=== PATIENT | female | born 1950 | race Caucasian/White ===

== ENCOUNTER 2019-11-16 19:18 | Emergency (ER) | payer MEDICARE, OTHER ==
[~2019-11-16] VITALS: Ht 154.9 cm; Wt 81.2 kg
[~2019-11-16 19:18] MED LIST: ACETAMINOP160 MG/52 PO; ACETAMINOPHEN-1 EAC1 PO; ALBUTEROL2.5 MG/3 M INH; ALENDRONATE SOD70 MG PO; ATORVASTATIN CA40 MG PO; ATORVASTATIN CA80 MG PO; BETAMETHASONE D60 ML TOP; CARAFATE1 GM PO; CLONIDINE HCL0.1 MG PO; COMBIVENT RESPIM4 GM INH; DALIRESP500 MCG PO; FLOVENT HFA12 G1 INH; LEVOFLOXACIN500 MG PO; METFORMIN HCL1000 MG PO; METFORMIN HCL500 M1 PO; MONTELUKAST SOD10 MG PO; NORTRIPTYLINE H75 MG PO; OXYCODONE HCL5 MG PO; PREDNISONE5 MG PO; PROTONIX40 MG PO; TERBINAFINE HC250 MG PO; TRAZODONE HCL150 MG PO
[2019-11-16] MEDS ORDERED: TRIAMCINOLONE A15 G4 TOP (19:37)
[2019-11-17] MEDS ORDERED: LEVAQUIN750 MG PO (01:01)
--- NOTE | 2019-11-17 12:07 | EKG ---
[facility] [address] 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
== END 2019-11-17 01:23 | disposition home or self-care (01) ==
LOC: ED 19:18
DX: J20.9 Acute bronchitis, unspecified (principal); J45.909 Unspecified asthma, uncomplicated; I10 Essential (primary) hypertension; E11.9 Type 2 diabetes mellitus without complications; Z88.2 Allergy status to sulfonamides; Z88.0 Allergy status to penicillin; Z88.8 Allergy status to other drugs, medicaments and biological substances; Z88.1 Allergy status to other antibiotic agents; Z88.6 Allergy status to analgesic agent; Z79.899 Other long term (current) drug therapy; Z79.84 Long term (current) use of oral hypoglycemic drugs
CPT/HCPCS: 71046; 71260; 80053; 83880; 85025; 85379; 93005; 93010; 99285-25

== ENCOUNTER 2020-01-25 20:38 | Emergency (ER) | payer MEDICARE, OTHER ==
[~2020-01-25] VITALS: Ht 154.9 cm; Wt 81.2 kg
[~2020-01-25 20:38] MED LIST changes: +LEVAQUIN750 MG PO; +TRIAMCINOLONE A15 G4 TOP
[2020-01-25] MEDS ORDERED: LEVOFLOXACIN750 MG PO (21:38)
--- NOTE | 2020-01-26 12:47 | EKG ---
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
== END 2020-01-25 21:52 | disposition home or self-care (01) ==
LOC: ED 20:38
DX: J44.1 Chronic obstructive pulmonary disease with (acute) exacerbation (principal); I10 Essential (primary) hypertension; E11.9 Type 2 diabetes mellitus without complications; Z88.2 Allergy status to sulfonamides; Z88.0 Allergy status to penicillin; Z88.1 Allergy status to other antibiotic agents; Z88.8 Allergy status to other drugs, medicaments and biological substances; Z79.899 Other long term (current) drug therapy; Z79.84 Long term (current) use of oral hypoglycemic drugs
CPT/HCPCS: 71045; 80053; 83735; 83880; 84484; 85025; 93005; 93010; 96374; 99285-25; J2930

== ENCOUNTER 2020-01-31 09:52 | Day surgery (SDC) | payer MEDICARE, OTHER ==
[~2020-01-31 09:52] MED LIST changes: +LEVOFLOXACIN750 MG PO
--- NOTE | 2020-01-31 12:10 | NUR ---
[address] rai in to do procedure. pt tolerated well. instructed pt and was given script for prednisone and instructed. dressed and taken to car with friend as commercial driver. bandaid clean and dry l neck.
--- NOTE | 2020-02-03 11:30 | OR ---
[facility] [address] [place], [place] [address] Signed DATE OF OPERATION: 01/31/2020 SURGEON: Harris Hamilton MD PREOPERATIVE DIAGNOSIS: Left thyroid nodule x2 (36 mm and 19 mm). POSTOPERATIVE DIAGNOSIS: Left thyroid nodule x2 (36 mm and 19 mm). PROCEDURE: Ultrasound-guided fine-needle aspiration biopsy of nodule #1 and #2. ANESTHESIA: Local, 1% lidocaine. INDICATIONS: This is a 69-year-old white woman, patient of Dr. Doyle, has underlying reactive airways disease. She is also noted on ultrasound to have two nodules of the left thyroid lobe, one of them 19 mm, other was 36 mm. She has no specific symptoms related to the nodules. She has no family history of thyroid cancer. She is admitted to undergo ultrasound-guided fine-needle aspiration biopsy of both the nodules. She understands the risks of bleeding, infection, failure of diagnosis, missed diagnosis, and need for other indicated procedure should malignancy be found or suspected. She understands this and wished to proceed. FINDINGS: The nodules were very well visualized on ultrasound. They appeared to be "stacked" in an ultrasonographic fashion. The nodules were separately biopsied under ultrasound guidance without problem. DESCRIPTION OF PROCEDURE: The patient was placed in the supine position with the pillow beneath the shoulders, arm, and head tilted back. The anterior neck was prepared with a chlorhexidine solution after initial interrogation with SonoSite ultrasound device. The area was sterilely draped. A 1% lidocaine was injected in the area of proposed trajectory to the left thyroid nodules. Using controlled tip syringe and a 22-gauge needle with ultrasound sonographic guidance, the largest nodule of 36 mm, which was deep, was multiply biopsied under direct Electronically Signed By: HARRIS HAMILTON MD 02/03/20 1130 PATIENT NAME: KEITH ANGLIN OPERATIVE REPORT DATE OF : 48 REPORT #: [id number] PHYSICIAN: HARRIS HAMILTON MD PCP: LIAN DOYLE MD REPORT IS CONFIDENTIAL AND NOT TO BE RELEASED WITHOUT AUTHORIZATION [facility] [address] [facility], [place] [address] Signed visualization, specimen put in CytoLyt. Additional biopsies were then taken through the more superficial 19 mm nodule under direct visualization. Photographs were taken. She tolerated the procedure well. Bandage was applied. Harris Hamilton MD JM/MODL /[id number] Copies: ~ Electronically Signed By: HARRIS HAMILTON MD 02/03/20 1130 PATIENT NAME: KEITH ANGLIN OPERATIVE REPORT DATE OF : 48 REPORT #: [id number] PHYSICIAN: HARRIS HAMILTON MD PCP: LIAN DOYLE MD REPORT IS CONFIDENTIAL AND NOT TO BE RELEASED WITHOUT AUTHORIZATION
== END 2020-01-31 18:00 | disposition home or self-care (01) ==
LOC: OPS 09:52 → DS 09:52 → OPS 11:00 → EDSTATUS 11:00 → DS 11:00 → OPS 18:00
PROVIDERS: ATTEND Surgery
PROC: 0G9G3ZX Drainage of Left Thyroid Gland Lobe, Percutaneous Approach, Diagnostic (ICD-10-PCS; principal; 2020-01-31)
PROC: BW4FZZZ Ultrasonography of Neck (ICD-10-PCS; 2020-01-31)
DX: E04.1 Nontoxic single thyroid nodule (principal)
CPT/HCPCS: 10004; 88173; 88305

== ENCOUNTER 2020-11-30 14:20 | Emergency (ER) | payer MEDICARE, OTHER ==
[~2020-11-30] VITALS: Ht 154.9 cm; Wt 83.5 kg
[2020-11-30] MEDS ORDERED: CYMBALTA30 MG PO (17:28)
[2020-11-30] MEDS ORDERED: VALIUM5 MG PO (23:23)
[2020-11-30] MEDS ORDERED: MAPAP500 MG PO (23:23)
[2020-11-30] MEDS ORDERED: LIDODERM1 EACH TOP (23:23)
--- NOTE | 2020-12-01 07:17 | EKG ---
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
== END 2020-12-01 00:20 | disposition home or self-care (01) ==
LOC: ED 14:20
DX: M62.830 Muscle spasm of back (principal); E86.0 Dehydration; Z20.822 Contact with and (suspected) exposure to COVID-19; E83.42 Hypomagnesemia; J44.9 Chronic obstructive pulmonary disease, unspecified; I10 Essential (primary) hypertension; E11.9 Type 2 diabetes mellitus without complications; Z88.2 Allergy status to sulfonamides; Z88.1 Allergy status to other antibiotic agents; Z88.6 Allergy status to analgesic agent; Z79.899 Other long term (current) drug therapy; Z79.84 Long term (current) use of oral hypoglycemic drugs
CPT/HCPCS: 72040; 80053; 81001; 83735; 84443; 85025; 87088; 93005; 93010; 96374; 96375; 96376; 99284-25; A9270; C9803; J1885; J2060; J3010; J3360; J7121; U0003

== ENCOUNTER 2021-06-04 11:59 | Emergency (ER) | payer MEDICARE, OTHER ==
[~2021-06-04] VITALS: Ht 154.9 cm; Wt 80.4 kg
[~2021-06-04 11:59] MED LIST changes: +CYMBALTA30 MG PO; +LIDODERM1 EACH TOP; +MAPAP500 MG PO; +VALIUM5 MG PO
== END 2021-06-04 15:25 | disposition home or self-care (01) ==
LOC: ED 11:59
DX: S39.012A Strain of muscle, fascia and tendon of lower back, initial encounter (principal); S33.5XXA Sprain of ligaments of lumbar spine, initial encounter; I10 Essential (primary) hypertension; J45.909 Unspecified asthma, uncomplicated; M19.90 Unspecified osteoarthritis, unspecified site; E11.9 Type 2 diabetes mellitus without complications; J44.9 Chronic obstructive pulmonary disease, unspecified; Z88.2 Allergy status to sulfonamides; Z88.0 Allergy status to penicillin; Z88.1 Allergy status to other antibiotic agents; Z88.8 Allergy status to other drugs, medicaments and biological substances; Z79.899 Other long term (current) drug therapy; Z79.51 Long term (current) use of inhaled steroids; Z79.84 Long term (current) use of oral hypoglycemic drugs; W18.30XA Fall on same level, unspecified, initial encounter; Y92.009 Unspecified place in unspecified non-institutional (private) residence as the place of occurrence of the external cause
CPT/HCPCS: 72100; 72170; 99283-25

== ENCOUNTER 2021-08-24 13:36 | Inpatient (IN) | payer MEDICARE, OTHER ==
[~2021-08-24] VITALS: Ht 154.9 cm; Wt 73.5 kg
[~2021-08-24 13:36] MED LIST changes: -FLOVENT HFA12 G1 INH; +FLOVENT HFA12 G1 NAS; +METFORMIN HCL1000 M1 PO; -METFORMIN HCL1000 MG PO
[2021-08-24] MEDS ORDERED: NORTRIPTYLINE H10 MG (13:47)
--- NOTE | 2021-08-24 19:20 | NUR ---
08/24/211919 Aaron Del Toro RESPONDS TO TAP AND VOICE AT 1915, REORIENTED TO TIME AND SITUATION.
--- NOTE | 2021-08-24 20:20 | NUR ---
PATIENT ARRIVED TO THE FLOOR VIA STRETCHER. PATIENT ASSISTED FROM STRETCHER TO BSC. PATIENT ABLE TO VOID A SMALL AMOUNT. PATIENT HAS NOTED BLOOD IN HER URINE. PATIENT IS NOW IN BED RESTING. PATIENT IS ON 2L VIA NC. PATIENT DENIES ANY PAIN. CPOX IN USE. SCDS IN USE. PATIENT DENIES ANY SOB. SENIOR CLERK PRESENT IN ROOM TO COMPLETED ADMISSION. ICE WATER PROVIDED. CALL LIGHT IN REACH.
--- NOTE | 2021-08-24 21:21 | NUR ---
POST OP VITALS COMPLETED. PATIENT RATES PAIN AT A 3/10 IN HER LOW ABD, PRN TYLENOL GIVEN PER ORDER. SCHEDULED MEDICATIONS GIVEN PER ORDER. IV INFUSING PER ORDER. PATIENT TITRATED TO 1L VIA NC. CPOX AND SCDS IN USE. RT PRESENT IN THE ROOM TO ADMIN NEB RX. JELL PROVIDED. NO FURTHER NEEDS NOTED. CALL LIGHT IN REACH.
--- NOTE | 2021-08-24 22:04 | NUR ---
POST-OP VITALS TAKEN AND RECORDED. NO NEEDS NOTED. CALL LIGHT IN REACH.
--- NOTE | 2021-08-24 22:54 | NUR ---
PATIENT ASSISTED TO THE BSC A SBA. PATIENT ABLE TO VOID. PATIENT IS BACK IN BED RESTING. IV INFUSING PER ORDER. PATIENT REMAINS ON 1L VIA NC. CPOX AND SCDS IN USE. PATIENT DENIES ANY NEEDS. CALL LIGHT IN REACH.
--- NOTE | 2021-08-25 00:58 | NUR ---
PATIENT ASSISTED TO THE BSC AND ABLE TO VOID. PATIENT IS BACK IN BED RESTING. PATIENT REPORTS SOB, PRN NEB GIVEN PER ORDER. PATIENT REMAISN ON 1L VIA NC. PATIENT DENIES ANY FURTHER NEEDS. CALL LIGHT IN REACH.
--- NOTE | 2021-08-25 01:17 | NUR ---
NEB COMPLETED. PATIENT REPORTS 8/10 PAIN IN HER LOW ABD. PRN PAIN MEDICATION GIVEN PER ORDER. NO FURTHER NEEDS NOTED. CALL LIGHT IN REACH.
--- NOTE | 2021-08-25 02:23 | NUR ---
VITALS TAKEN AND RECORDED. INTAKE AND OUTPUT RECORDED. PATIENT TATES PAIN AT A 3/10, AND DENIES THE NEED FOR INTERVENTION AT THIS TIME. 1L VIA NC. CPOX AND SCDS ARE IN USE. PATIENT DENIES ANY SOB. ICE SHIPS PROVIDED. NO FURTHER NEEDS NOTED. CALL LIGHT IN REACH.
--- NOTE | 2021-08-25 05:05 | NUR ---
PATIENT ASSISTED TO THE BSC A 1PA. PATIENT WAS ABLE TO VOID. PATIENT IS BACK IN BED RESTING. PATIENT REQUESTED NEB TX, PRN NEB TX ADMIN PER ORDER. PATIENT RATES PAIN AT A 7/10, PRN TYLENOL GIVEN PER ORDER. IV INFUSING PER ORDER. PATIENT TITRATED TO RA. SCD IN USE. PATIENT PROVIDE WITH FRESH ICE WATER AND ICE CHIPS. NO FURTHER NEEDS NOTED. CALL LIGHT IN REACH.
--- NOTE | 2021-08-25 06:46 | NUR ---
PATIENTS AM MEDICATIONS GIVEN PER ORDER. PATIENT IS RESTING IN BED WATCHING TV. PATIENT DENIES ANY NEEDS. CALL LIGHT IN REACH.
--- NOTE | 2021-08-25 07:15 | NUR ---
BEDSIDE HANDOFF REPORT RECEIVED FROM INFRASTRUCTURE DIRECTOR RN. PT RESTING IN BED. PT DENIES NEEDS AT THIS TIME.
--- NOTE | 2021-08-25 08:40 | OR ---
[facility] [address] [facility] [place], [place] [address] Signed DATE OF OPERATION: 08/24/2021 SURGEON: Dayami Flanagan MD PREOPERATIVE DIAGNOSES: 1. Right pyelonephritis with associated perinephric stranding and possible right calyceal rupture. 2. Obstructing 6 x 5 mm right proximal ureteral calculus. POSTOPERATIVE DIAGNOSES: 1. Right pyelonephritis with associated perinephric stranding and possible right calyceal rupture. 2. Obstructing 6 x 5 mm right proximal ureteral calculus. 3. Mild urethral stenosis. NAMES OF PROCEDURES: 1. Diagnostic cystoscopy. 2. Insertion of a 6 x 24 cm double-J ureteral stent into the right collecting system. 3. Urethral dilation using straight Francis sounds, from 18-Bolivian to 28-Bolivian. ANESTHESIA: General. ESTIMATED BLOOD LOSS: None. COMPLICATIONS: None. SPECIMENS: None. DRAINS: A 6 x 24 cm double-J ureteral stent inserted into the right ureter. INDICATION FOR PROCEDURE: Ms. Anglin is a very pleasant 71-year-old female with a history of diabetes, COPD, and hypertension, who presented to the emergency department earlier this afternoon with a 1-day history of progressively worsening flank pain and generalized malaise. She had a recent fall and fell on her side and was assuming that she had injured her back. Electronically Signed By: DAYAMI FLANAGAN MD 08/25/21 0840 PATIENT NAME: KEITH ANGLIN OPERATIVE REPORT DATE OF : 48 REPORT #: [id number] PHYSICIAN: DAYAMI FLANAGAN MD PCP: LIAN DOYLE MD REPORT IS CONFIDENTIAL AND NOT TO BE RELEASED WITHOUT AUTHORIZATION [facility] [address] [place], [place] [address] Signed However, she underwent a CT scan, which revealed right pyelonephritis secondary to an obstructing 6 x 5 right proximal ureteral calculus. Also, noted on the CT scan was perinephric fluid, which I believe is suggestive of a right calyceal rupture. I notified the patient of the findings of the CAT scan and she consented to undergo cystoscopy with right ureteral stent insertion this evening. Of note, the patient's renal function is within normal limits along with her white blood cell count. OPERATIVE FINDINGS: 1. On cystoscopy, there was no evidence of any suspicious masses, lesions, or stones. Bilateral ureteral orifices are in their normal anatomic location. I do appreciate efflux from the left ureteral orifice, however, there is no efflux from the right ureteral orifice. 2. A 6 x 24 cm double-J ureteral stent was inserted into the right ureter under direct visualization without difficulty. After the stent was placed, I could easily see a good deal of drainage coming from the right ureteral orifice. The drainage was not overly purulent in appearance. DESCRIPTION OF PROCEDURE: After informed consent was obtained, the patient was taken back to the operating room. [facility], where general anesthesia was induced. She was placed in the dorsal lithotomy position and her genitalia prepped and draped in standard sterile fashion. I attempted to pass the cystoscope into the patient's bladder, however, I did note some mild urethral stenosis. Her urethra was thus dilated using straight Francis sounds from 18-Bolivian to 28-Bolivian without difficulty. I was then able to pass a 30-degree lens on a 22.5-Bolivian sheath cystoscope through the urethra and into the patient's bladder. Panendoscopic views of the bladder were then obtained. Please see above findings. I turned my attention to the right ureteral orifice. The right UO was cannulated using a 0.035 Sensor wire. Adequate placement of the wire was confirmed on fluoroscopy. Over the wire, I passed a 6 x 24 cm double-J ureteral stent into the right collecting system. The stent passed easily without any difficulty. Once I pulled the wire, the proximal portion of the stent rested in the upper calyx of the right kidney. An adequate distal coil was seen on cystoscopy. The patient's bladder was then drained and cystoscope was removed. The procedure was then terminated. The patient tolerated the procedure well without any complication. She will now be transferred to the postanesthesia care unit in stable condition. DISPOSITION: I discussed the details of the patient's procedure today with her friend, Kae Riley and answered all of her questions. The patient will remain admitted under the care of Dr. Lian Doyle for treatment of her right pyelonephritis. My plan is to place her back on the OR schedule for September 13, at which time, she will undergo definitive stone Electronically Signed By: DAYAMI FLANAGAN MD 08/25/21 0840 PATIENT NAME: KEITH ANGLIN OPERATIVE REPORT DATE OF : 48 REPORT #: [id number] PHYSICIAN: DAYAMI FLANAGAN MD PCP: LIAN DOYLE MD REPORT IS CONFIDENTIAL AND NOT TO BE RELEASED WITHOUT AUTHORIZATION [address] [address] Signed extraction in the form of right ureteroscopy with laser lithotripsy, basket extraction of stone fragments, and right ureteral stent exchange. She will need to go home on culture directed oral antibiotics and pain control as needed. MD FREDY Stewart/JAIMIEL /[id number] Copies: ~ Electronically Signed By: DAYAMI FLANAGAN MD 08/25/21 0840 PATIENT NAME: KEITH ANGLIN OPERATIVE REPORT DATE OF : 48 REPORT #: [id number] PHYSICIAN: DAYAMI FLANAGAN MD PCP: LIAN DOYLE MD REPORT IS CONFIDENTIAL AND NOT TO BE RELEASED WITHOUT AUTHORIZATION
--- NOTE | 2021-08-25 08:40 | NUR ---
PT RESTING IN CHAIR. PT ON ROOM AIR, LUNG SOUNDS CLEAR.PT REPORT OF PAIN 7/10 TO LOWER ABD, REQUESTING PAIN MEDICATION, GIVEN ULTRAM PER ORDER. PT DENIES NAUSEA, BOWEL TONES ACTIVE, REQUESTING BREAKFAST, ADVANCED TO 60G DIABETIC DIET. BLOOD GLUCOSE 152, GIVEN 1 UNIT SS HUMALOG. CMS INTACT, PULSES STRONG. IV FLUIDS INFUSING LR AT 125ML/HR, NEW BAG HUNG. DISCUSSED PLAN OF CARE FOR THE DAY. PT DENIES OTHER NEEDS AT THIS TIME.
--- NOTE | 2021-08-25 09:23 | NUR ---
ELSY IS UP IN CHAIR WATCHING TV. I&O AND VITALS CHARTED. CALL LIGHT WITHIN REACH, NO FURTHER TASKS AT THIS TIME
[2021-08-25] MEDS ORDERED: METFORMIN HCL1000 MG PO (11:25)
[2021-08-25] MEDS ORDERED: NORTRIPTYLINE H75 MG PO (11:27)
--- NOTE | 2021-08-25 12:20 | NUR ---
PT GIVEN 1 UNIT SS HUMALOG FOR BLOOD GLUCOE 145. SECOND BAG OF 2G MAGNESIUM INFUSING. PT ASSISTED TO BSC, VOIDED BLOOD TINGED URINE. PT DENIES OTHER NEEDS AT THIS TIME.
--- NOTE | 2021-08-25 14:12 | NUR ---
CHECKING ON PT-FOUND SHE IS SOUND ASLEEP, DID NOT DISTURB. WILL CHECK BACK
[2021-08-25] MEDS ORDERED: FRONT WHEELED WALKER XX (14:18)
[2021-08-25] MEDS ORDERED: NEBULIZER UNIT XX (14:18)
--- NOTE | 2021-08-25 14:55 | NUR ---
Spoke with pt and she states she lives in [place], she uses the [employer], and [employer]. She lives alone and son helps her. He friend drives her to 's appts and to grocery shop. She states she is in need of a walker and Dr. Blackwood notified. Pt plans on dc to home when cleared medically. Will send rx for walker and nebulizer to [facility] as requested by pt.
[2021-08-25] MEDS ORDERED: PANTOPRAZOLE SO40 MG PO (15:35)
[2021-08-25] MEDS ORDERED: TRADJENTA5 MG PO (15:35)
[2021-08-25] MEDS ORDERED: INCRUSE ELLI62.5 MCG INH (15:36)
[2021-08-25] MEDS ORDERED: ALBUTEROL2.5 MG/3 M INH (15:41)
--- NOTE | 2021-08-25 15:43 | NUR ---
MED REC COMPLETE
--- NOTE | 2021-08-25 18:43 | NUR ---
NEW IV STARTED TO LEFT WRIST, IV BX INFUSING. PT GIVEN 1 UNIT SS HUMALOG FOR BG 172. PT DENIES OTHER NEEDS AT THIS TIME.
--- NOTE | 2021-08-25 19:00 | NUR ---
SHIFT REPORT RECEIVED FROM FAHEEM OBRIEN. PT SITTING UP IN CHAIR, ROCEPHIN INFUSING. PT ON ROOM AIR, DENIES NEEDS.
--- NOTE | 2021-08-25 20:40 | NUR ---
SHIFT ASSESSMENT COMPLETED. PT REPORTS LOWER ABDOMINAL PAIN, STATES ITS MOSTLY AFTER COUGHING. PRN TYLENOL AND ROBITUSSIN GIVEN. PT REMAINS ON ROOM AIR, DENIES SOB, LUNGS CLEAR/DIM IN BASES. CB, NO SLIDING SCALE INSULIN INDICATED. IV PATENT AND INTACT. LIGHTS DIMMED PER PT REQUEST, DENIES FURTHER NEEDS.
--- NOTE | 2021-08-25 21:30 | NUR ---
REPORT RECEIVED FROM ROSSI MAYEN. PT REMAINS UP IN CHAIR, WATCHING TV WITH CALL LIGHT IN REACH.
--- NOTE | 2021-08-25 21:32 | NUR ---
REPORT GIVEN TO FAHEEM COLORADO.
--- NOTE | 2021-08-25 22:30 | NUR ---
PT CALLED FOR HELP GETTING TO BSC, UP TO VOID THEN BACK TO CHAIR. STATES "I SLEEP BETTER IN THE CHAIR". CALL LIGHT IN REACH AND NO FURHTER REQUESTS.
--- NOTE | 2021-08-26 00:55 | NUR ---
PT CALLED FOR COUGH MEDICATIONS. GEMMA CAMACHO GIVEN. PT REMAINS UP IN CHAIR WITH CALL LIGHT IN HAND.
--- NOTE | 2021-08-26 02:30 | NUR ---
PT REMAINS UP IN CHAIR, EYES CLOSED RESP EVEN AND UNLABORED WITH CALL LIGHT IN REACH.
--- NOTE | 2021-08-26 04:18 | NUR ---
ROUNDED ON PT, PT REMAINS SITTING UP IN CHAIR, RESTING WITH EYES CLOSED, RESP EVEN AND UNLABORED AND CALL LIGHT IN REACH.
--- NOTE | 2021-08-26 05:54 | NUR ---
PRN COUGH MEDICINE GIVEN PER REQUEST. LAB IN TO DRAW. PT UP IN CHAIR WITH CALL LIGHT IN REACH.
--- NOTE | 2021-08-26 06:15 | NUR ---
PT GIVEN TYLENOL FOR PAIN ASSOCIATED WITH COUGHING.
[2021-08-26] MEDS ORDERED: IPRAT-ALBUT 0.5-3 ML INH (09:19)
--- NOTE | 2021-08-26 10:23 | NUR ---
PATIENT TOOK A SHOWER, THEN BACK TO THE CHAIR. SHE IS REQUESTING SOME ORANGE JELLO AND REPORT NO PAIN AT THIS TIME. AM MEDICATION DONE AND AM ASSESSMENT COMPLETED. CARAFATE WILL BE GIVEN AT 11 TO ALLOW THE PATIENT TO EAT HER SNACK.
--- NOTE | 2021-08-26 11:03 | NUR ---
PATIENT CONTINUES TO BE UP IN THE CHAIR, REPORTING 11/07 DUE TO COUGING PER THE PATIENT, REQUESTING PAIN MEDICATION. 1100 MEDICATION GIVEN WELL.
[2021-08-26] MEDS ORDERED: CEFPODOXIME PR200 MG PO (11:37)
[2021-08-26] MEDS ORDERED: BENZONATATE100 MG PO (11:38)
--- NOTE | 2021-08-26 11:54 | NUR ---
updated patient that the MD is discharging her after her Rocephin IV is given early, she verbalized understanding.
--- NOTE | 2021-08-26 12:03 | NUR ---
ROCEPHIN STARTED, iv ACCESS FLUSHED WITH 5 ML NORMAL SALINE PRIOR TO STARTING ROCEPHIN IV
--- NOTE | 2021-08-26 13:22 | NUR ---
ELSY IS UP IN CHAIR. VITALS AND I &O CHARTED CALL LIGHT WITHIN REACH. NO FURTHER TASKS AT THIS TIME
--- NOTE | 2021-08-26 13:42 | NUR ---
patient's discharged discussed in detail, patient asked question, medications were reviewed with pharmacy. VSS at discharge, IV access removed and c/d/i upon discharge
== END 2021-08-26 13:35 | disposition home or self-care (01) | DRG 660 ==
LOC: ED 13:36 → MS 17:49
PROVIDERS: Urology; ADMIT Internal Medicine; ATTEND Internal Medicine
PROC: 3E03329 Introduction of Other Anti-infective into Peripheral Vein, Percutaneous Approach (ICD-10-PCS; 2021-08-24)
PROC: 0T768DZ Dilation of Right Ureter with Intraluminal Device, Via Natural or Artificial Opening Endoscopic (ICD-10-PCS; principal; 2021-08-24 17:46)
DX: N13.6 Pyonephrosis (principal); E87.2 Acidosis; B02.29 Other postherpetic nervous system involvement; M80.08XA Age-related osteoporosis with current pathological fracture, vertebra(e), initial encounter for fracture; E86.0 Dehydration; I10 Essential (primary) hypertension; E78.5 Hyperlipidemia, unspecified; M62.830 Muscle spasm of back; E11.9 Type 2 diabetes mellitus without complications; J44.9 Chronic obstructive pulmonary disease, unspecified; Z98.890 Other specified postprocedural states; Z20.822 Contact with and (suspected) exposure to COVID-19; Z88.2 Allergy status to sulfonamides; Z88.0 Allergy status to penicillin; Z88.1 Allergy status to other antibiotic agents; Z88.6 Allergy status to analgesic agent; Z79.899 Other long term (current) drug therapy; Z79.84 Long term (current) use of oral hypoglycemic drugs; K76.0 Fatty (change of) liver, not elsewhere classified; K44.9 Diaphragmatic hernia without obstruction or gangrene
CPT/HCPCS: 36415; 74177; 76000; 80048; 80053; 81001; 83036; 83735; 85025; 87088; 94640; 94760; 96367; 96375; 99285-25; A9270; C1769; C2617; J0696; J0744; J1100; J1170; J1200; J1650; J1815; J1885; J2001; J2370; J2405; J2704; J3010; J3475; J7030; J7121; Q9967; U0003

== ENCOUNTER 2021-10-04 05:40 | Day surgery (SDC) | payer MEDICARE, OTHER ==
[~2021-10-04] VITALS: Ht 154.9 cm; Wt 77.3 kg
[~2021-10-04 05:40] MED LIST changes: +BENZONATATE100 MG PO; +CEFPODOXIME PR200 MG PO; +FRONT WHEELED WALKER XX; +INCRUSE ELLI62.5 MCG INH; +IPRAT-ALBUT 0.5-3 ML INH; +METFORMIN HCL1000 MG PO; +NEBULIZER UNIT XX; +NORTRIPTYLINE H10 MG; +PANTOPRAZOLE SO40 MG PO; +SEREVENT DISKU50 MCG INH; +TRADJENTA5 MG PO
--- NOTE | 2021-10-04 08:39 | NUR ---
10/04/21 0839 CorinneFina 0830- PT ARRIVES TO PACU AROUSABLE TO VOICE. PT IS NOT ANSWERING QUESTIONS, DOES OPEN HER EYES. RESP EVEN AND UNLABORED. OXYGEN SAT HIHG 90'S TO 100% ON 10L VIA MASK. 0831- OXYGEN TITRATED DOWN TO 8L VIA MASK. 0834- PT IS MORE AWAKE AND TRYING TO PULL OFF HER OXYGEN MASK. OXYGEN SAT IN THE HIGH 90'S TO 100% ON 8L VIA MASK. OXYGEN TITRATED OFF AND OXYGEN MASK REMOVED. 0835- CBG 108. SUPERVISOR [employer] AWARE. PT IS WANTING A POSITION CHANGE. PT SAT UP IN BED AND KNEES BENT. PT REPORTS THIS HELPS HER BACK PAIN.
--- NOTE | 2021-10-04 09:10 | NUR ---
ICED WATER AND PUDDING GIVEN. PATIENT EATS/DRINKS AND TOLERATES THAT WELL. SHE IS UP TO THE BATHROOM WITH KATHIE METZ RN STANDBY. SHE TOLERATES THIS WELL. SHE IS BACK IN THE STRETCHER AND HER CALL LIGHT IS WITHIN REACH.
[2021-10-04] MEDS ORDERED: HYDROCODON-ACE1 EA10 PO (09:25)
[2021-10-04] MEDS ORDERED: CIPRO500 MG PO (09:26)
--- NOTE | 2021-10-04 10:00 | NUR ---
PT USES CALL LIGHT TO ALERT RN OF URGE TO VOID. PT ASSISTED OOB, DENIES ANY DIZZINESS OR NAUSEA WITH POSITION CHANGE. PT MISSES HAT IN TOILET, QS RED TINGED URINE. PT BACK TO BED WITH CALL LIGHT IN REACH, PROVIDED WARM BLANKET.
--- NOTE | 2021-10-04 10:46 | OR ---
[facility] [address] [place], [place] [address] Signed DATE OF OPERATION: 10/04/2021 SURGEON: Dayami Flanagan MD PREOPERATIVE DIAGNOSES: 1. A 6 x 5 mm right renal pelvis stone, status post cystoscopy with right ureteral stent insertion for obstructing 6 x 5 mm right ureteral calculus. 2. Indwelling 6 x 24 cm double-J ureteral stent. POSTOPERATIVE DIAGNOSES: 1. A 6 x 5 mm right renal pelvis stone, status post cystoscopy with right ureteral stent insertion for obstructing 6 x 5 mm right ureteral calculus. 2. Indwelling 6 x 24 cm double-J ureteral stent. NAMES OF PROCEDURES: 1. Diagnostic cystoscopy with right retrograde pyelogram. 2. Right flexible nephroureteroscopy with basket extraction of 6 x 5 mm right renal pelvis calculus. 3. Right ureteral stent exchange. ANESTHESIA: General. ESTIMATED BLOOD LOSS: None. COMPLICATIONS: None. SPECIMENS: A 6 x 5 mm formally obstructing ureteral calculus sent to the lab in toto for stone analysis. DRAINS: A 6 x 22 cm double-J ureteral stent inserted into the right ureter. INDICATION FOR PROCEDURE: Ms. Anglin is a very pleasant 71-year-old female, who was initially admitted from the emergency department for urosepsis due to an obstructing 6 x 5 mm right ureteral calculus. She underwent urgent cystoscopy with right ureteral stent insertion to Electronically Signed By: DAYAMI FLANAGAN MD 10/04/21 1046 PATIENT NAME: WIDELKEITH RECORD #: [id number] OPERATIVE REPORT DATE OF : 48 REPORT #: [id number] PHYSICIAN: DAYAMI FLANAGAN MD PCP: LIAN DOYLE MD REPORT IS CONFIDENTIAL AND NOT TO BE RELEASED WITHOUT AUTHORIZATION [facility] [address] [place], [place] [address] Signed decompress her right collecting system. Since that time, she has stabilized and presents today to undergo definitive extraction of her 6 x 5 mm calculus, which is now present within the right renal pelvis. OPERATIVE FINDINGS: 1. On cystoscopy, there was no evidence of any suspicious masses, lesions, or stones. Bilateral ureteral orifices are in their normal anatomic location. She has a mildly calcified indwelling right ureteral stent that is visualized. 2. Right flexible nephroscopy revealed the presence of a 6 x 5 mm stone present within the right renal pelvis. There was a good deal of mucosal swelling within the right renal pelvis associated with the indwelling calculus. This stone was removed in toto using a Zero tip basket from the right renal pelvis without difficulty. 3. Right retrograde pyelogram revealed that the right ureter was patent and still intact after removing the stone in toto. There were no other filling defects or abnormalities on the right retrograde pyelogram. 4. At the end of the procedure, a new stent was placed, however, this one was shorter. A 6 x 22 cm double-J ureteral stent was inserted into the right collecting system without difficulty. DESCRIPTION OF PROCEDURE: After informed consent was obtained, the patient was taken back to the operating room. She was transferred from the [facility] to the operating room table, where general anesthesia was induced. She was placed in the dorsal lithotomy position and her genitalia were prepped and draped in a standard sterile fashion. Using a 30-degree lens on a 22.5-Yoruba introducer, rigid cystoscope was inserted through the urethra into her bladder under direct visualization. Panendoscopic views of the bladder were then obtained. I turned my attention to the indwelling ureteral stent, which was moderately calcified. Stent graspers were used to remove the stent to the level of the urethral meatus. I then cannulated the lumen of the stent with a 0.035 Sensor wire. The Sensor wire was advanced to the level of the right renal pelvis and the indwelling stent was removed fully intact. A 13 x 15 ureteral access sheath was then advanced over the indwelling wire and into the right collecting system under fluoroscopic guidance. I confirmed adequate placement of the sheath by injecting dye into the right renal pelvis. I passed a flexible ureteroscope through the sheath and into the right proximal ureter and right renal pelvis. I performed a thorough diagnostic nephroscopy. The 6 x 5 mm stone was present within the right renal pelvis and there was a good deal of mucosal swelling around the stone. Given the stone size and the fact that this patient's ureter has been dilated for about 5 weeks now with a stent, I chose to attempt to remove the stone in toto without the need for fragmentation. A Zero tip basket was used to take hold of the stone, which was then carefully brought from the right renal pelvis and out of the proximal ureter and was retracted into the sheath. I then slowly removed the sheath from the right collecting system with a stone within the sheath. The sheath was Electronically Signed By: DAYAMI FLANAGAN MD 10/04/21 1046 PATIENT NAME: KEITH ANGLIN OPERATIVE REPORT DATE OF : 48 REPORT #: [id number] PHYSICIAN: DAYAMI FLANAGAN MD PCP: LIAN DOYLE MD REPORT IS CONFIDENTIAL AND NOT TO BE RELEASED WITHOUT AUTHORIZATION [place] [id number] Signed completely withdrawn from the collecting system and I did appreciate a stone within the proximal tip of the sheath. This 6 x 5 stone was placed in a specimen cup to be sent to the lab for stone analysis. I reinserted a rigid cystoscope and advanced a cone-tipped catheter to the level of the right ureteral orifice. A right retrograde pyelogram was performed. Please see above findings. I then cannulated the right ureter again with a 0.035 Sensor wire and advanced the wire up to the right renal pelvis. I confirmed adequate placement of the wire on fluoroscopy. Over the wire, I passed a 6 x 22 cm double-J ureteral stent into the right collecting system under direct visualization without difficulty. I pulled the wire and adequate proximal coil was seen in the superior pole of the right kidney and adequate distal coil was noted on cystoscopy. There was a string that was left attached to the stent. The patient's bladder was then drained and the cystoscope was removed. The string was then secured to the patient's lower abdomen. The procedure was then terminated. The patient tolerated the procedure well without any complication. She will now be transferred to the postanesthesia care unit in stable condition. DISPOSITION: I discussed the details of today's procedure with the patient, answered all of her questions. I have instructed her to remove her indwelling ureteral stent using the string attached in five days, which would be October 09, 2021. She will be sent home today with Cipro 250 mg p.o. b.i.d. for a total of 7 days along with Frederick 5/325 dispense #30 as needed for pain. She has been scheduled to return to clinic on November 15 for her postoperative evaluation and to discuss the results of her stone analysis. Dayami Flanagan MD AR/MODL /[id number] Copies: ~ Electronically Signed By: DAYAMI FLANAGAN MD 10/04/21 1046 PATIENT NAME: KEITH ANGLIN OPERATIVE REPORT DATE OF : 48 REPORT #: [id number] PHYSICIAN: DAYAMI FLANAGAN MD PCP: LIAN DOYLE MD REPORT IS CONFIDENTIAL AND NOT TO BE RELEASED WITHOUT AUTHORIZATION
--- NOTE | 2021-10-04 13:22 | NUR ---
PT IS ALERT, ORIENTED AND SOMEWHAT ANXIOUS. PT SCHEDULED FOR SURGERY, ASKED FOR PRAYER. GAVE ENCOURAGEMENT AND WILL FOLLOW
== END 2021-10-04 10:15 | disposition home or self-care (01) ==
LOC: DS 05:40
PROVIDERS: ATTEND Urology
PROC: 0TC38ZZ Extirpation of Matter from Right Kidney Pelvis, Via Natural or Artificial Opening Endoscopic (ICD-10-PCS; principal; 2021-10-04 07:30)
PROC: 0T9680Z Drainage of Right Ureter with Drainage Device, Via Natural or Artificial Opening Endoscopic (ICD-10-PCS; 2021-10-04 07:30)
DX: N20.0 Calculus of kidney (principal); I10 Essential (primary) hypertension; E78.5 Hyperlipidemia, unspecified; E11.9 Type 2 diabetes mellitus without complications; J44.9 Chronic obstructive pulmonary disease, unspecified; Z88.6 Allergy status to analgesic agent; Z88.1 Allergy status to other antibiotic agents; Z88.0 Allergy status to penicillin; Z88.2 Allergy status to sulfonamides; Z87.442 Personal history of urinary calculi
CPT/HCPCS: 00910; 74420; 82365; C1769; C2617; J0690; J1100; J1160; J1885; J2405; J2704; J2765; J3010; J7121; Q9967

== ENCOUNTER 2022-01-12 09:26 | Emergency (ER) | payer MEDICARE, OTHER ==
[~2022-01-12] VITALS: Ht 154.9 cm; Wt 77.2 kg
[~2022-01-12 09:26] MED LIST changes: +CIPRO500 MG PO; +HYDROCODON-ACE1 EA10 PO
[2022-01-12] MEDS ORDERED: DILT-XR120 MG PO (09:35)
[2022-01-12] MEDS ORDERED: PREDNISONE20 MG PO (09:52)
[2022-01-12] MEDS ORDERED: ALBUTEROL2.5 MG/3 M INH (10:35)
== END 2022-01-12 10:50 | disposition home or self-care (01) ==
LOC: ED 09:26
DX: J45.909 Unspecified asthma, uncomplicated (principal); Z20.822 Contact with and (suspected) exposure to COVID-19; M19.90 Unspecified osteoarthritis, unspecified site; I10 Essential (primary) hypertension; E11.9 Type 2 diabetes mellitus without complications; Z88.2 Allergy status to sulfonamides; Z88.0 Allergy status to penicillin; Z88.1 Allergy status to other antibiotic agents; Z88.6 Allergy status to analgesic agent; Z79.899 Other long term (current) drug therapy; Z79.84 Long term (current) use of oral hypoglycemic drugs
CPT/HCPCS: 36415; 71045; 80053; 85025; 87502; 96374; 99285-25; C9803; J2930; U0003

== ENCOUNTER 2022-03-04 04:31 | Inpatient (IN) | payer MEDICARE, OTHER ==
[~2022-03-04] VITALS: Ht 154.9 cm; Wt 64.9 kg
[~2022-03-04 04:31] MED LIST changes: +DILT-XR120 MG PO; +FLOVENT HFA12 G1 INH; -FLOVENT HFA12 G1 NAS; +PREDNISONE20 MG PO
--- NOTE | 2022-03-04 08:23 | NUR ---
Patient arrived to the medical floor. Patient is alert and oriented x4, in pleasant mood. Patient reports she is short of breath at rest, improved from ED admit she reports. RR 26/min, sp02 97% on 1.5L oxygen per nc. Patient oriented to room and call light. Personal supplies and call light within reach.
--- NOTE | 2022-03-04 09:57 | NUR ---
Tylenol 500mg po admin for reports of 7/10 joint pain.
--- NOTE | 2022-03-04 12:09 | NUR ---
SITTING UP IN BED,VERY TALKATIVE.PATIENT PLANS TO GO HOME TO HER APARTMENT.HAS A FRIEND YOU LIVES AT THE APARTMENT WHO CALLED THE AMBULANCE LAST NIGHT TO BRING HER TO THE HOSPITAL.ALSO HAS A SON WHO LIVES IN [place].
[2022-03-04] MEDS ORDERED: SEREVENT DISKU50 MCG INH (13:33)
[2022-03-04] MEDS ORDERED: DILT-XR120 MG PO (13:34)
[2022-03-04] MEDS ORDERED: BENADRYL25 MG PO (15:18)
--- NOTE | 2022-03-04 15:23 | NUR ---
MED REC COMPLETE
[2022-03-04] MEDS ORDERED: TRIAMCINOLONE A15 G4 TOP (15:25)
--- NOTE | 2022-03-04 19:11 | NUR ---
Tylenol 500mg po admin for reports of 5/10 generalized pain.
--- NOTE | 2022-03-04 19:15 | NUR ---
RECEIVED REPORT FROM OFFGOING Sofia BRENNER PT RESTING IN ROOM, CHATTY, NO COMPLAINT OF PAIN OR SHORTNESS OF BREATH AT THIS TIME. PT BREATHING IS EVEN AND UNLABORED, NO SIGN OF DISTRESS. PT CALL LIGHT IN REACH.
--- NOTE | 2022-03-04 19:20 | NUR ---
bedside report from beatriz duron, with gregory rn, pt resting in bed with iv fusing, cpox wnl - pt denies needs- call light in reach.
--- NOTE | 2022-03-04 20:35 | NUR ---
this rn started the scheduled neb tx per rt and pt request - no distress noted - pt just asking for scheduled med. gregory rn in room for assessment see emar.
--- NOTE | 2022-03-04 22:03 | NUR ---
IN PT ROOM FOR ROUNDING, PT RESTING, NO INDICATIONS OF PAIN, BREATHING EVEN AND UNLABORED. CALL LIGHT IN REACH.
--- NOTE | 2022-03-04 22:30 | NUR ---
IN TO ASSIST PT WIT TOLIETING NEEDS, BACK TO BED, NO FURTHER NEEDS
--- NOTE | 2022-03-04 22:33 | NUR ---
IN PT ROOM FOR ROUNDING, PT RESTING WATCHING TV. PT BREATHING IS EVEN AND UNLABORED, NO INDICATIONS OF PAIN OR DISCOMFORT, SOB. PT CALL LIGHT IN REACH
--- NOTE | 2022-03-05 00:20 | NUR ---
IN PT ROOM FOLLOWING POWER OUTAGE. PT RESTING EASILY, NO INDICATIONS OF PAIN, BREATHING EVEN AND UNLABORED. PT CALL LIGHT IN REACH
--- NOTE | 2022-03-05 02:57 | NUR ---
IN PT ROOM FOR ROUNDING. PT RESTING WITH EYES CLOSED, BREATHING IS EVEN, SOME ACCESSORY MUSCLES IN USE BUT APPEARS UNLABORED. PT CALL LIGHT IS IN REACH.
--- NOTE | 2022-03-05 04:27 | NUR ---
IN PT ROOM FOR ROUNDING. PT RESTING WITH EYES CLOSED, EASILY AROUSED. PT BREATHING IS EVEN AND UNLABORED, NO INDICATIONS OF PAIN, SOB, OR DISCOMFORT. PT CALL LIGHT IS IN REACH
--- NOTE | 2022-03-05 06:04 | NUR ---
IN PT ROOM FOR MEDICATION ADMINISTRATION AND ROUNDING. PT HAS NO COMPLAINT OF PAIN OR SOB. PT IS MEDICATION COMPLIANT, CALL LIGHT IN REACH
--- NOTE | 2022-03-05 07:25 | NUR ---
BEDSIDE HANDOFF REPORT RECEIVED FROM ELECTION JUDGE RN. PT RESTING IN BED. PT DENIES NEEDS AT THIS TIME.
--- NOTE | 2022-03-05 08:20 | NUR ---
PT RESTING IN BED. PT STATES BREATHING FEELS MUCH BETTER, DENIES SOB, LUNG SOUNDS CLEAR BUT DIMINISHED THROUGHOUT, ON ROOM AIR, O2 SATS 94%, RT AT BEDSIDE FOR SCHEDULED NEB. PT TACHYCARDIC, HR 110-120. PT DENIES NAUSEA, BOWEL TONES ACTIVE, TOLERATING 60G CARB DIET, BLOOD GLUCOSE 155, GIVEN 1 UNITT SS HUMALOG. IV FLUIDS INFUSING LR AT 85ML/HR, IV X2 FLUSHED AND PATENT. PT WITHOUT EDEMA, CMS INTACT. DISCUSSED PLAN OF CARE FOR THE DAY, PT DECLINED SHOWER, PROVIDED ITEMS FOR ORAL CARE. PT DENIES OTHER NEEDS AT THIS TIME.
--- NOTE | 2022-03-05 10:59 | NUR ---
PT CALLED AND REQUESTED BREATHING TREATMENT, RT NOTIFIED. LUNG SOUNDS ASSESSED, MORE DIMINISHED THAN THIS AM. PT STATES SHE STARTED TO COUGH AND IS FEELING SOB. PT CONTINUES TO BE ON ROOM AIR.
--- NOTE | 2022-03-05 12:30 | NUR ---
PT GIVEN 1 UNIT SS HUMALOG FOR BLOOD GLUCOSE 164. PT EATING LUNCH. PT DENIES OTHER NEEDS AT THIS TIME.
--- NOTE | 2022-03-05 14:30 | NUR ---
IN TO ADMINSTER MEDICATION. MED GIVEN AND PT ASKED IF THEY WOULD LIKE TO SHOWER. PT AGREES AND AMBULATES TO BATHROOM INDEPENDENTLY. STAND BY GAURD DONE DURING SHOWER. PT INDEPENDENT IN WASHING SELF. PT REPORTS SOME SOB WHILE STANDING IN SHOWER. SITTING BREAK TAKEN ONCES. 2L NC GIVEN FOR ASSIST IN RECOVERY. SATURATIONS NOT ASSESSED AT THIS TIME. PT JUST WITH INCREASE WORK OF BREATHING. PT RECOVERED IN ONE2 MINUTES ONCE SITTING. ONCE IN BED CPOX PLACED AND PTS SATS WERE 96%. PT PLACED BACK ON RA. CALL LIGHT IN REACH. NO OTHER NEEDS.
--- NOTE | 2022-03-05 17:06 | NUR ---
IN FOR MED PASS. PT SITTING COMFORTABLY IN BED ON RA. PT DISCUSSING POSSIBLE NEED FOR OXYGEN WHEN RETURNING HOME. HAD PT AMBULATE IN ROOM ON RA TO ASSESS IF O2 IS NEEDED WITH ACTIVITY. O2 SATURATIONS INCREASED TO 99-100% WITH ACTIVITY. PT THEN SAT DOWN ON BED. SPO2 BACK TO 94%. EDUCATED PT THIS WOULD DISQUALIFY HER FOR HOME OXYGEN. PT UNDERSANDS. NO OTHER QUESTIONS. CALL LIGHT IN REACH. DINNER AT BEDSIDE.
--- NOTE | 2022-03-05 17:55 | NUR ---
VSS. PT ASSISTED TO BATHROOM, SBA. PT WITH SMALL APPETITE. PT DENIES OTHER NEEDS AT THIS TIME.
--- NOTE | 2022-03-05 19:23 | NUR ---
IN PT ROOM FOR ROUNDING. PT RESTING, WATCHING TV AND RECEIVING NEBULIZER TREATMENT FROM RT. PT HAS NO COMPLAINT OF PAIN OR DSICOMFORT AT THIS TIME, CALL LIGHT IN REACH.
--- NOTE | 2022-03-05 21:30 | NUR ---
IN PT ROOM FOR ROUNDING, MEDICATINO ADMINSITRATION. PT RESTING, MEDICATION COMPLIANT. PT HAS NO COMPLAINT OF PAIN OR DISCOMFORT, NO SOB NOTED. PT CALL LIGHT IN REACH.
--- NOTE | 2022-03-05 22:58 | NUR ---
IN PT ROOM TO ASSIST WITH BATHROOM. PT ABLE TO SELF-AMBULATE TO TOILET WITH NO ASSISTANCE. PT BACK IN BED, NO COMPLAINT OF PAIN, CALL LIGHT IN REACH.
--- NOTE | 2022-03-06 00:28 | NUR ---
IN PT ROOM FOR ROUNDING, PT SITTING UP IN BED WATCHING TV. PT BREATHING IS EVEN AND UNLABORED, NO COMPLAINT OF PAIN OR DISCOMFORT. PT CALL LIGHT IS IN REACH
--- NOTE | 2022-03-06 01:31 | NUR ---
IN PT ROOM FOR ROUNDING. PT SHOWED ME THAT HER IV ACCIDENTALLY WAS PULLED OUT OF HER RIGHT ARM. NO IV WAS RESTARTED THERE WAS STILL ACCESS IN LEFT UPPER ARM. PT HAD NO COMPLAINT OF PAIN OR DISCOMFORT, CALL LIGHT IN REACH
--- NOTE | 2022-03-06 03:28 | NUR ---
IN PT ROOM FOR ROUNDING. PT BREATHING EVEN AND REGULAR, NO SIGNS OR SYMPTOMS OF SOB. PT CALL LIGHT IN REACH,
--- NOTE | 2022-03-06 03:48 | NUR ---
IN PT ROOM FOR ROUNDING. PT RESTING ON BACK, BREATHING EVEN AND UNLABORED, NO SIGNS OF SOB. PT CALL LIGHT IN REACH
--- NOTE | 2022-03-06 05:00 | NUR ---
IN PT ROOM FOR ROUNDING AND ASSISTANCE TO RESTROOM. PT ABLE TO AMBULATE ON OWN TO TOILET WITHOUT INCIDENT. PT SUCCESSFULLY RETURNED TO BED WITHOUT INCIDENT, CALL LIGHT IN REACH.
--- NOTE | 2022-03-06 05:37 | NUR ---
IN PT ROOM FOR MEDICATION ADMINISTRATION. PT IN GOOD SPIRITS, CHATTY. PT MEDICATION COMPLIANT. PT HAS NO COMPLAINT OF PAIN OR SOB, CALL LIGHT IN REACH.
--- NOTE | 2022-03-06 07:20 | NUR ---
bedside report from eliazar rn, pt sitting at bedside, cpox on, ra and saline lock iv.
--- NOTE | 2022-03-06 08:01 | NUR ---
PATIENT IN BED FOR MEAL, BY REQUEST. AM CARE COMPLETED. ICE WATER GIVEN AND THE PT HAS NO OTHER NEEDS AT THIS TIME. CALL LIGHT WITHIN REACH.
--- NOTE | 2022-03-06 08:36 | NUR ---
PT SITTING AT BEDSIDE, TALKATIVE EATING MEAL WELL. ROOM AIR. - C/O HEADACHE TYLENOL GIVEN. CALL LIGHT IN REACH
--- NOTE | 2022-03-06 09:49 | NUR ---
PATIENT IN BED AFTER MEAL. VITALS AND I/O'S COMPLETED. PATIENT HAS NO OTHER NEEDS AT THIS TIME. CALL LIGHT WITHIN REACH.
--- NOTE | 2022-03-06 12:20 | NUR ---
PT AMB TO BR ON ROOM AIR - TOLLERATED WELL.
--- NOTE | 2022-03-06 13:39 | NUR ---
PT HR 120-130 ANXIOUS ABOUT HOME ISSUES WITH FRIEND/MONEY. TRIED TO ASSIST PT TO CALL OUT. PHONE NOT WORKING FOR HER FRIEND - PT IS FRUSTERATED AND ANGRY ABOUT OUTSIDE ISSUES.
--- NOTE | 2022-03-06 14:01 | NUR ---
PATIENT SITTING UP IN BED. VITALS AND I/O'S COMPLETED. PT HAS NO OTHER NEEDS AT THIS TIME. CALL LIGHT WITHIN REACH.
--- NOTE | 2022-03-06 17:28 | NUR ---
THIS RN IN FOR SCHEDULED NEB TREATMENT, RT UNAVAILABLE. PRIOR TO TREATMENT PT O2 SAT 93% RR 22 HEART RATE 125. PT APPEARS TO BE IN NO DISTRESS, APPEARS COMFORTABLE HAVING CONVERSATION. POST TREATMENT O2 SAT 93%, RR 22 HEART RATE 128. PT DENIES FURTHER NEEDS AT THIS TIME. CALL LIGHT IN REACH. PT EATING DINNER AT EDGE OF BED.
--- NOTE | 2022-03-06 17:45 | NUR ---
RN ROUNDED ON PT, DENIES NEEDS - REPORTS FEELING BETTER - HR CONTINUES TO BE 120-130 PT STILL ANXIOUS ABOUT HOME AND FINANCES - BUT REPORTS FEELING MORE RELIEVED AFTER DINNER AND TALK TO SON ON PHONE. CALL LIGHT IN REACH
--- NOTE | 2022-03-06 19:41 | NUR ---
IN PT ROOM FOR REPORT, PT UP WATCHING TELEVISION. PT STATES SHE IS IN A "GOOD MOOD". PT HAS NO COMPLAINT OF PAIN OR DISCOMFORT, CALL LIGHT IN REACH.
--- NOTE | 2022-03-06 21:07 | NUR ---
IN PT ROOM FOR MEDICATION AND ROUNDING, PT RESTING WATCHING TV. PT BREATHING WAS EVEN AND REGULAR, INSULIN HELD DUE TO BG 121. PT CALL LIGHT IN REACH, NO COMPLAINT OF PAIN
--- NOTE | 2022-03-06 22:38 | NUR ---
IN PT ROOM FOR ROUNDING, ASSISTED TO TOILET. PT NOT EXHIBITING OR COMPLAINING OF SOB OR PAIN. PT CALL LIGHT IN REACH
--- NOTE | 2022-03-06 23:29 | NUR ---
IN PT ROOM FOR ROUNDING, PT RESTING LISTENING TO MUSIC. PT HAS NO COMPLAINT OF PAIN OR DISCOMFORT, CALL LIGHT IN REACH
--- NOTE | 2022-03-07 00:42 | NUR ---
IN PT ROOM FOR ROUNDING. PT RESTING WITH EYES CLOSED, NO COMPLAINT OF PAIN OR DISCOMFORT. PT CALL LIGHT IN REACH
--- NOTE | 2022-03-07 01:42 | NUR ---
IN PT ROOM FOR ROUNDING. PT RESTING WITH EYES CLOSED, BREATHING EVEN AND UNLABORED, NO SIGNS OF SOB OR PAIN. PT CALL LIGHT IN REACH.
--- NOTE | 2022-03-07 03:24 | NUR ---
IN PT ROOM FOR ROUNDING. PT SLEEPING, MONITOR SHOWS O2 93, HR 117. PT SHOWING NO SIGN OF PAIN OR DISCOMFORT, CALL LIGHT IN REACH.
--- NOTE | 2022-03-07 04:50 | NUR ---
CALL LIGHT ANSWERED. SBA TO THE BATHROOM AND BACK TO BED. V/S AND I&O'S TAKEN AND DOCUMENTED. PATIENT REQUESTED FOR BREATHING TREATMENT. RT WAS CALLED BY THE PRIMARY RN. NO OTHER NEEDS AT THIS TIME.
--- NOTE | 2022-03-07 05:55 | NUR ---
in pt room for rounding, medication administration. pt awake, able to make needs known. pt has no complaint of pain or discomfort, call light in reach
--- NOTE | 2022-03-07 07:53 | NUR ---
PT SLEEPING SOUND AT TIME OF SHIFT REPORT, LEFT UNDISTURBED. AWAKE NOW WATCHING TV DENIES DISCOMFORTS OR NEEDS OF. CALL LIGHT, FRESH H20, AND NEEDED ITEMS AT BEDSIDE
--- NOTE | 2022-03-07 09:04 | NUR ---
PT SITTING IN BED. VITALS AND IS AND OS COMPLETE. PT DECLINED NEEDING TO USE THE RESTROOM. NO FURTHER NEEDS. CALL LIGHT WITHIN REACH.
--- NOTE | 2022-03-07 10:10 | NUR ---
PT REPORTS BOTH IV'S WERE REMOVED Monday
--- NOTE | 2022-03-07 10:12 | NUR ---
Resting in bed.States she is feeling better. Discussed Lisa's plan of care. Lisa will be going home to her aparment.She now has a new Neb. machine and also has a walker to help with balance. Lisa's son will help when needed and she also has a neighbor to call if needed.
--- NOTE | 2022-03-07 10:47 | NUR ---
PT UP TO TOILET SBA, THEN RETURNS TO BED. SHE IS SOB WITH ACTIVITY BUT RECOVERS QUICKLY ONCE SEATED. RESTING NOW IN BED DENIES NEEDS OF.
--- NOTE | 2022-03-07 14:52 | NUR ---
PT SITTING UP ON EDGE OF BED TALKATIVE AND UPBEAT. DENIES DISCOMFORTS OR NEEDS OF AT THIS TIME. CALL LIGHT AND NEEDED ITEMS IN REACH.
--- NOTE | 2022-03-07 17:49 | NUR ---
PT SITTING UP EATING EVENING MEAL, AGREES SHE IS GLAD SHE DECIDED TO STAY ONE MORE NIGHT. AGREES SHE WILL BE READY FOR DC TOMORROW
--- NOTE | 2022-03-07 19:17 | NUR ---
IN PT ROOM FOR ROUNDING, PT UP WATCHING TV AND TALKING ON PHONE. WHITE BOARD UPDATE, NO COMPLAINT OF PAIN OR DISCOMFORT. PT CALL LIGHT IN REACH.
--- NOTE | 2022-03-07 21:20 | NUR ---
IN PT ROOM FOR ASSESSMENT, MEDICATION ADMINISTRATION. PT RESTING, WATCHING TV. PT GLUCOSE 189, GIVEN 3 UNITS HUMALOG FOR COVERAGE. PT HAS NO COMPLAINT OF PAIN OR DISCOMFORT. CALL LIGHT IN REACH
--- NOTE | 2022-03-07 22:11 | NUR ---
IN PT ROOM FOR VS AND ROUNDING. PT RESTING ON SIDE, NO COMPLAINT OF PAIN OR DISCOMFORT, CPOX MONITOR ATTACHED,WORKING. PT CALL LIGHT IN REACH.
--- NOTE | 2022-03-07 23:05 | NUR ---
IN PT ROOM FOR ROUNDING. PT RESTING ON SIDE WATCHING TV. PT MONITORS WORKING APPROPRIATELY, NO SIGNS OR INDICATIONS OF PAIN OR DISCOMFORT. PT CALL LIGHT IN REACH
--- NOTE | 2022-03-07 23:16 | NUR ---
IN PT ROOM TO ASSIST WITH TOILETING - PT DENIES PAIN OR DISOCMFORT, NO INDICATIONS OF SOB, TOLERATES ACTIVITY WELL. PT CALL LIGHT IN REACH
--- NOTE | 2022-03-08 00:44 | NUR ---
IN PT ROOM FOR ROUNDING. PT AWAKE AND WATCHING TV, NO COMPLAINT OF PAIN OR DISCOMFORT. PT CALL LIGHT IN REACH,
--- NOTE | 2022-03-08 01:55 | NUR ---
IN PT ROOM FOR ROUNDING. PT WATCHING TV, DENIES PAIN RO DISCOMFORT, PT CALL LIGHT IN REACH
--- NOTE | 2022-03-08 03:48 | NUR ---
IN PT ROOM FOR ROUNDING. PT RESTING ON SIDE, BREATHING REGULAR, EVEN AND UNLABORED. PT HAS NO INDICATIONS OF SOB OR DISCOMFORT. PT CALL LIGHT IN REACH.
--- NOTE | 2022-03-08 04:26 | NUR ---
IN PT ROOM TO ASSIST WITH TOILETING. PT ABLE TO GO TO BATHROOM WITHOUT ISSUE, BACK IN BED WITHOUT INCIDENT. PT CALL LIGHT IN REACH, NO COMPLAINT OF DISCOMFORT AT THIS TIME.
--- NOTE | 2022-03-08 05:16 | NUR ---
IN PT ROOM FOR MEDICATION ADMINISTRATION. PT WATCHING TV, GETTING BLOOD DRAW FOR LABES. PT CALL LIGHT IN REACH, NO COMPLAINT OF DISCOMFORT.
--- NOTE | 2022-03-08 07:30 | NUR ---
PT AWAKE WATCHING TV AT TIME OF SHIFT REPORT. DENIES SOB OR OTHER DISCOMFORTS. PT STATES SHE IS LOOKING FORWARD TO GOING HOME TODAY AND THAT SHE "FEELS SO MUCH BETTER" FRESH H20 AT BEDSIDE.
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
--- NOTE | 2022-03-08 09:59 | NUR ---
DR VALENZUELA IN TO SEE PT DISCUSSES DC AT LENGTH UNDERSTANDING VERBALIZED.
[2022-03-08] MEDS ORDERED: CEFUROXIME500 MG PO (11:12)
--- NOTE | 2022-03-08 11:15 | NUR ---
PT IS CLOTHED AND WAITING FOR DC. RESTING EYES CLOSED
[2022-03-08] MEDS ORDERED: PREDNISONE20 MG PO (11:27)
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
--- NOTE | 2022-04-08 12:20 | EKG ---
[facility] [address] [facility] [place] [address] Signed Sinus tachycardia Right bundle branch block Septal infarct , age undetermined Possible Lateral infarct , age undetermined Inferior infarct , age undetermined Abnormal ECG Confirmed by Dominguez Valenzuela MD () on 03/04/2022 5:29:19 PM Electronically Signed By: DOMINGUEZ VALENZUELA MD 03/04/22 1729 Electronically Signed By: DOMINGUEZ VALENZUELA MD 04/08/22 1220 PATIENT NAME: KEITH ANGLIN Electrocardiogram DATE OF : 48 PHYSICIAN: DOMINGUEZ VALENZUELA MD REPORT #: [id number] REPORT IS CONFIDENTIAL AND NOT TO BE RELEASED WITHOUT AUTHORIZATION
== END 2022-03-08 12:45 | disposition home or self-care (01) | DRG 202 ==
LOC: ED 04:31 → MS 04:33
PROVIDERS: ADMIT Internal Medicine; ATTEND Internal Medicine
DX: J45.51 Severe persistent asthma with (acute) exacerbation (principal); B02.29 Other postherpetic nervous system involvement; J44.1 Chronic obstructive pulmonary disease with (acute) exacerbation; J01.90 Acute sinusitis, unspecified; Z20.822 Contact with and (suspected) exposure to COVID-19; E11.9 Type 2 diabetes mellitus without complications; E78.5 Hyperlipidemia, unspecified; I10 Essential (primary) hypertension; G47.00 Insomnia, unspecified; F32.A Depression, unspecified; R00.0 Tachycardia, unspecified; M19.90 Unspecified osteoarthritis, unspecified site; Z98.51 Tubal ligation status; Z88.0 Allergy status to penicillin; Z88.1 Allergy status to other antibiotic agents; Z88.2 Allergy status to sulfonamides; Z88.8 Allergy status to other drugs, medicaments and biological substances; Z79.51 Long term (current) use of inhaled steroids; Z79.84 Long term (current) use of oral hypoglycemic drugs; Z79.899 Other long term (current) drug therapy
CPT/HCPCS: 36415; 36600; 71045; 80053; 82803; 83036; 83605; 83735; 83880; 84484; 85025; 87040; 87502; 93005; 93010; 94640; 94644; 94760; 94762; 96374; 96375; 99285-25; A9270; J0696; J1650; J1815; J2930; J3475; J7040; J7121; U0003

== ENCOUNTER 2022-07-12 12:37 | Emergency (ER) | payer MEDICARE, OTHER ==
[~2022-07-12] VITALS: Ht 154.9 cm; Wt 60.9 kg
[~2022-07-12 12:37] MED LIST changes: +BENADRYL25 MG PO; +CEFUROXIME500 MG PO; +CULTURELLE1 EACH PO; +MIRALAX17 GM PO; +XOPENEX CO1.25 MG/0. INH
--- OUTSIDE RECORDS SUMMARY | 2022-07-12 12:38 | XMS ---
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 Haris has no Care Guidelines for this patient. Marni VISIT COUNT (12 MO.) 6 [facility] [place] TOTAL 6 NOTE: Visits indicate total known visits. ED/C VISIT TRACKING (12 MO.) 07/12/2022 12:37 [facility] [place] TYPE: Emergency COMPLAINT: - LOW B/P 07/07/2022 16:18 [facility] [place] [facility] [place] TYPE: Emergency COMPLAINT: - SHORTNESS OF BREATH 03/04/2022 04:32 [facility] [place] [facility] [place] TYPE: Emergency COMPLAINT: - SOB 01/12/2022 09:26 [facility] [place] TYPE: Emergency COMPLAINT: - DIFFICULTY BREATHING DIAGNOSES: - Allergy status to other antibiotic agents - Allergy status to penicillin - Shortness of breath - Allergy status to analgesic agent - Essential (primary) hypertension - Other exterminator termite (current) drug therapy - skilled nursing (current) use of oral hypoglycemic drugs - Allergy status to sulfonamides - Unspecified asthma, uncomplicated - Unspecified osteoarthritis, unspecified site - Contact with and (suspected) exposure to COVID-19 - Type 2 diabetes mellitus without complications 09/13/2021 11:53 [facility] [place] TYPE: Emergency COMPLAINT: - SOB,CHEST PAIN DIAGNOSES: - Shortness of breath - Allergy status to other antibiotic agents - Allergy status to sulfonamides - Allergy status to penicillin - Allergy status to other drugs, medicaments and biological substances - Other exterminator termite (current) drug therapy - Tachycardia, unspecified - skilled nursing (current) use of oral hypoglycemic drugs - Type 2 diabetes mellitus without complications - Essential (primary) hypertension - Chronic obstructive pulmonary disease with (acute) exacerbation 08/24/2021 13:36 [facility] [place] TYPE: Emergency COMPLAINT: - ABDOMINAL PAIN INPATIENT VISIT TRACKING (12 MO.) 07/07/2022 16:19 [facility] [place] TYPE: Observation COMPLAINT: - ACUTE ASTHMA EXACERBATION,HYPOMAGNESEMIA 03/06/2022 10:32 [facility] [place] TYPE: Medical Surgical COMPLAINT: - HYPOXIC RESPIRATORY FAILURE DIAGNOSES: - skilled nursing (current) use of oral hypoglycemic drugs - Other postherpetic nervous system involvement - Severe persistent asthma with (acute) exacerbation - Tachycardia, unspecified - Allergy status to penicillin - Essential (primary) hypertension - Contact with and (suspected) exposure to COVID-19 - Allergy status to sulfonamides - Allergy status to sulfonamides - Unspecified osteoarthritis, unspecified site - Allergy status to other antibiotic agents - Type 2 diabetes mellitus without complications - Insomnia, unspecified - Depression, unspecified - Severe persistent asthma with (acute) exacerbation - Acute sinusitis, unspecified - Unspecified osteoarthritis, unspecified site - Tubal ligation status - Other specified postprocedural states - Contact with and (suspected) exposure to COVID-19 - Other correction (current) drug therapy - skilled nursing (current) use of oral hypoglycemic drugs - Type 2 diabetes mellitus without complications - Acute respiratory failure with hypoxia - Essential (primary) hypertension - Allergy status to other antibiotic agents - Hyperlipidemia, unspecified - rn long term care (current) use of inhaled steroids - Other exterminator termite (current) drug therapy - Tubal ligation status - Allergy status to other drugs, medicaments and biological substances - Allergy status to penicillin - Hyperlipidemia, unspecified - Tachycardia, unspecified - Allergy status to other drugs, medicaments and biological substances - Acute sinusitis, unspecified - Depression, unspecified - Chronic obstructive pulmonary disease with (acute) exacerbation - Insomnia, unspecified - Other specified postprocedural states - Other postherpetic nervous system involvement - skilled nursing (current) use of inhaled steroids 08/24/2021 17:49 [facility] [place] TYPE: Medical Surgical COMPLAINT: - PYELONEPHRITIS DIAGNOSES: - Pyonephrosis - Pyonephrosis - Age-related osteoporosis with current pathological fracture, vertebra(e), initial encounter for fracture - Allergy status to penicillin - Age-related osteoporosis with current pathological fracture, vertebra(e), initial encounter for fracture - Dehydration - Allergy status to penicillin - Allergy status to other drugs, medicaments and biological substances - Type 2 diabetes mellitus without complications - Hyperlipidemia, unspecified - Other exterminator termite (current) drug therapy - Fatty (change of) liver, not elsewhere classified - Chronic obstructive pulmonary disease, unspecified - Other specified postprocedural states - Chronic obstructive pulmonary disease, unspecified - Acidosis - Tubulo-interstitial nephritis, not specified as acute or chronic - Essential (primary) hypertension - Contact with and (suspected) exposure to COVID-19 - Allergy status to analgesic agent - Contact with and (suspected) exposure to COVID-19 - Muscle spasm of back - skilled nursing (current) use of oral hypoglycemic drugs - Allergy status to sulfonamides - skilled nursing (current) use of oral hypoglycemic drugs - Other specified postprocedural states - Acidosis - Dehydration - Diaphragmatic hernia without obstruction or gangrene - Allergy status to sulfonamides - Essential (primary) hypertension - Type 2 diabetes mellitus without complications - Other correction (current) drug therapy - Fatty (change of) liver, not elsewhere classified - Allergy status to other antibiotic agents - Acute pyelonephritis - Allergy status to other antibiotic agents - Hyperlipidemia, unspecified - Diaphragmatic hernia without obstruction or gangrene - Other postherpetic nervous system involvement - Allergy status to analgesic agent - Muscle spasm of back - Other postherpetic nervous system involvement [email or web address]
--- NOTE | 2022-07-15 16:10 | EKG ---
[facility] [address] [facility] [place] [address] Signed Sinus tachycardia Right bundle branch block Possible Lateral infarct , age undetermined Inferior infarct (cited on or before 14-MAR-2016) Abnormal ECG When compared with ECG of 07-JUL-2022 16:18, No significant change was found Confirmed by LIAN DOYLE MD ([id number]) on 07/15/2022 4:10:37 PM Electronically Signed By: LIAN DOYLE MD 07/15/22 1610 PATIENT NAME: KEITH ANGLIN Electrocardiogram DATE OF : 48 PHYSICIAN: LIAN DOYLE MD REPORT #: [id number] REPORT IS CONFIDENTIAL AND NOT TO BE RELEASED WITHOUT AUTHORIZATION
== END 2022-07-12 17:36 | disposition home or self-care (01) ==
LOC: ED 12:37
DX: E86.0 Dehydration (principal); J45.909 Unspecified asthma, uncomplicated; I10 Essential (primary) hypertension; E11.9 Type 2 diabetes mellitus without complications; J44.9 Chronic obstructive pulmonary disease, unspecified; Z88.2 Allergy status to sulfonamides; Z88.0 Allergy status to penicillin; Z88.1 Allergy status to other antibiotic agents; Z88.6 Allergy status to analgesic agent; Z79.899 Other long term (current) drug therapy; Z79.52 Long term (current) use of systemic steroids; Z79.84 Long term (current) use of oral hypoglycemic drugs
CPT/HCPCS: 36415; 71045; 80053; 83605; 83735; 85025; 93005; 93010; 96361; 96365; 99284-25; A9270; J3475; J7030

== ENCOUNTER 2022-08-30 16:20 | Inpatient (IN) | payer MEDICARE, OTHER ==
[~2022-08-30] VITALS: Ht 154.9 cm; Wt 59.2 kg
[2022-08-30 20:30] VITALS: BP 137/84
--- NOTE | 2022-08-30 20:32 | NUR ---
PT TO FLOOR WITH ED RN VIA STRETCHER. ALERT AND ORIENTED. SLIDE TRANSFER FROM STRETCHER TO BED, PT DID NOT FEEL ABLE TO MOVE D/T SOB. SpO2 93% ON RA. PT REPORTS BREATHING IMPROVED. ABLE TO SPEAK FULL SENTENCES. REQUESTING NEB TX AND PERSONAL FAN. PROVIDED. LINE ASSIGNER IN ROOM FOR ADMISSION.
--- NOTE | 2022-08-30 21:00 | NUR ---
PT ATE 2 SUGAR FREE PUDDINGS SHE HAD ANYTHING TO EAT TODAY. DOES NOT WEAR DENTURES AT HOME. LIVES ALONE. HAS FAMILY IN AREA; DOES NOT SMOKE, HAS ASTHMA PER PATIENT. "LIVED WITH SOMEONE SMOKING FOR 25 YEARS" HAS STRESS INCONT FROM COUGHING.
--- NOTE | 2022-08-30 22:20 | NUR ---
ADMISSION ASSESSMENT COMPLETE. SCHEDULED MEDS ADMIN PER EMAR. PT SLIGHT SOB. SpO2 88% UPON ENTERING ROOM. 2L/NC PLACED. SpO2 MID 90'S. RESPIRATIONS EVEN. LUNGS DIM THROUGHOUT. PT DENIES QUESTIONS OR CONCERNS. ORIENTED TO ROOM AND NURSE CALL LIGHT. NO FURTHER NEEDS AT THIS TIME. CALL LIGHT IN REACH.
--- NOTE | 2022-08-31 00:10 | NUR ---
PATIENT GOT UP TO BEDSIDE COMMODE. SBA. STEADY ON FEET. PATIENT HAVE SHORTNESS OF BREATH. SPO2 IN ABOVE 90'S. O2 IN 2L VIA NC. REFRESHED ICE WATER. PATIENT VOIDED 500ML SLIGHTLY DARK URINE. NO OTHER NEEDS AT THIS TIME. BED ALARM ON FOR SAFETY. CALL LIGHT WITHIN REACH.
[2022-08-31 02:00] VITALS: BP 111/66
--- NOTE | 2022-08-31 02:14 | NUR ---
PT AWAKE SITTING IN TRIPOD POSITION IN BED. VS AND I&O OBTAINED. SCHEDULED MEDS ADMIN PER ORDER. UP TO BSC WITH MINIMAL SBA AND FWW TO VOID SMALL AMOUNT. PT ABLE TO DO OWN KIM CARE. BACK TO BED, YO WELL. GAIT STEADY. INCREASED RESPIRATIONS WITH ACTIVITY. PT REPORTS MILD SOB. SpO2 MID 90'S WITH 2L/NC UPON RETURNING TO BED. HR 120'S. SANDWICH BOX PROVIDED. NO FURTHER NEEDS.
--- NOTE | 2022-08-31 02:42 | NUR ---
PT REPORTS ITCHING AND HAVING A "COUGHING FIT" RELATED TO POST NASAL DRIP. REQUESTS BENADRYL SHE TAKES THAT AT HOME. DR. DOYLE NOTIFIED. NEW TELEPHONE ORDERS RECEIVED VERIFIED WITH READBACK METHOD. PRN ADMIN PER ORDER. NO FURTHER NEEDS.
[2022-08-31 05:41] VITALS: BP 127/78
--- NOTE | 2022-08-31 05:50 | NUR ---
PT RESTING WITH EYES CLOSED. AWAKENS EASILY. VS AND I&O OBTAINED. PT REQUESTING PRN BREATHING TX. RT NOTIFIED. SCHEDULED MEDS ADMIN PER ORDER. SNACK PROVIDED. NO FURTHER NEEDS. CALL LIGHT IN REACH.
--- NOTE | 2022-08-31 06:21 | NUR ---
PT CALLED, SBA TO BSC, VOIDED, CLEANED SELF, BACK TO BED WITH SBA.
--- NOTE | 2022-08-31 08:10 | NUR ---
REPORT RECEIVED FROM NIGHT RN AND PT CARE RESUMED. PT. IS ALERT AND ORIENTED TO ALL. DENIES SOB OR PAIN. ON 1L O2 NC AND SP02 IS 97%. PLACED ON RA AND 02 SAT REMAINED GREATER THAN 95%. ASSESSMENT COMPLETED AND MEDS. ADMIN. DISCUSSED AMBULATING AND PT. AGREED TO AFTER BREAKFAST.
[2022-08-31 09:35] VITALS: BP 118/56
--- NOTE | 2022-08-31 10:34 | NUR ---
PT. AMBULATED WITH SBA WITH STUDENT RN WITH PULSE OX. IN PLACE. 02 SAT REMAINED GREATER THAN 90% ON ROOM AIR AND HR STAYED AT 112 OR LESS. PT. BACK IN BED WITH CALL LIGHT IN REACH.
--- NOTE | 2022-08-31 14:30 | NUR ---
Spoke with Lisa. She states she lives alone in an apartment with 1 step. Pt is sob with stairs. Son lives in [place] and assists her when needed. He also helps her financially when needed. Pt uses a cane and a walker. Her friend, Kae helps her also and drives her when needed. Pt needs assist with food and agrees to meals on wheels. She has used [employer] in the past, I will call and request they start meals on wheels. Pt has handrails. She plans on dc to home when cleared medically with cont. help from son and friend.
--- NOTE | 2022-08-31 16:18 | NUR ---
Called [facility] and gave them pts name, phone number, and date of . Asked them to contact her for MOW.
[2022-08-31 18:14] VITALS: BP 118/73
--- NOTE | 2022-08-31 19:17 | NUR ---
Received bedside report from offgoing shift, hourly rounding initiated.
[2022-08-31 21:01] VITALS: BP 118/102
--- NOTE | 2022-08-31 21:17 | NUR ---
In pt room for medication administration, rounding. Pt sitting up in bed, watching tv. Pt has no complaint of pain at this time, is medication compliant, call light in reach.
--- NOTE | 2022-08-31 21:57 | NUR ---
IN PT ROOM FOR ROUNDING. PT SITTING UP IN BED, WATCHING TV, EYES OPEN BREATHING EVEN AND UNLABORED. PT HAS NO INDICIATION OF PAIN OR DISCOMFORT, CALL LIGHT IN REACH.
--- NOTE | 2022-08-31 23:36 | NUR ---
IN PT ROOM FOR ROUNDING. PT RESTING ON BACK, EYES CLOSED, BREATHING EVEN AND UNLABORED WITH NO INDICATION OF PAIN OR DISCOMFORT. PT HAS CALL LIGHT IN REACH.
--- NOTE | 2022-09-01 01:16 | NUR ---
IN pt room for rounding. Pt resting on back, eyes closed, breathing even and unlabored, Pt has no complaint of or indication of pain or discomfort, call light in reach.
--- NOTE | 2022-09-01 02:19 | NUR ---
IN pt room for rounding. Pt sitting up in bed watching tv, waving at staff when the check in. Pt has no complaint of pain or discomfort when asked, call light in reach.
--- NOTE | 2022-09-01 04:00 | NUR ---
IN pt room for rounding. Pt resting on back, eyes closed, breathing even and unlabored, no indication of or complaint of pain or discomfort. Pt call light in reach.
--- NOTE | 2022-09-01 05:23 | NUR ---
In pt room for rounding. pt resting on back, eyes closed, breathing even and unlabored, no indication of pain or discomfort, call light in reach.
[2022-09-01 06:14] VITALS: BP 134/81
--- NOTE | 2022-09-01 07:28 | NUR ---
PT CALLED AFTER USING BSC. THIS PORCELAIN FINISH SPRAYER EMPIED HAT, RECORDED VOID, PT PERFORMED OWN PERICARE, SHE IS SITTING CROSS LEGGEED IN BED WATCHING TV. NORMAL BREATHING OBSERVED, REFILLED PT WATER/CUP OF ICE, NO OTHER NEEDS AT THIS TIME. CALL LIGHT IN REACH.
[2022-09-01] MEDS ORDERED: IPRAT-ALBUT 0.5-3 ML INH (08:10)
[2022-09-01] MEDS ORDERED: TYLENOL EXTRA500 MG PO (08:44)
--- NOTE | 2022-09-01 08:45 | NUR ---
Slime and I went and spoke with pt. She states she has a nebulizer and compavent at home as well as the treatments. She states that if she needs O2 when she DCs that she would like to go through [facility] as she has used them in the past. We also updated pt that we called [facility] yesterday afternoon and she understood that they will call her and ask her some questions as pt is already on services with them. Pt states she had a tough night. She will discuss with about DC.
[2022-09-01] MEDS ORDERED: VITAMIN D350 MC3 PO (08:47)
[2022-09-01] MEDS ORDERED: VITAMIN C1000 MG PO (08:47)
--- NOTE | 2022-09-01 08:48 | NUR ---
MED REC COMPLETE
[2022-09-01 09:09] VITALS: BP 118/57
--- NOTE | 2022-09-01 09:30 | NUR ---
REPORT RECEIVED FROM NIGHT RN AND PT. CARE RESUMED. PT. IS ALERT AND ORIENTED TO ALL. LUNGS DIM. THROUGHOUT BUT SP02 96%. SHE DENIES SOB. ASSESSMENT COMPLETED AND MEDS ADMIN. LEFT RESTING WITH CALL LIGHT IN REACH
[2022-09-01] MEDS ORDERED: LEVOFLOXACIN500 MG PO (11:41)
[2022-09-01] MEDS ORDERED: XOPENEX HFA15 GM INH (11:43)
[2022-09-01] MEDS ORDERED: BENZONATATE100 MG PO (11:44)
[2022-09-01] MEDS ORDERED: DILTIAZEM 24HR120 MG PO (11:44)
[2022-09-01] MEDS ORDERED: PREDNISONE20 MG PO (11:46)
[2022-09-01] MEDS ORDERED: MAG DELAY64 M1 PO (11:47)
[2022-09-01 14:04] VITALS: BP 141/76
--- NOTE | 2022-09-01 14:28 | NUR ---
PT. CONCERNED THAT SHE CANNOT GET TO PHARMACY AFTER DC FOR CARDIZEM. MD CONTACTED AND VERBAL ORDER GIVEN TO GIVE EVENING DOSE PRIOR TO DC. PHARMACY UPDATED.
[2022-09-01 15:11] VITALS: BP 106/60
[2022-09-01 15:16] VITALS: BP 106/60
--- NOTE | 2022-09-01 15:30 | NUR ---
ALL DISCHARGE INSTRUCTIONS REVIEWED AND QUESTIONS ANSWERED.
== END 2022-09-01 15:57 | disposition home or self-care (01) | DRG 189 ==
LOC: ED 16:20 → MS 19:53
PROVIDERS: ADMIT Internal Medicine; ATTEND Family Medicine
DX: J96.01 Acute respiratory failure with hypoxia (principal); J44.1 Chronic obstructive pulmonary disease with (acute) exacerbation; Z20.822 Contact with and (suspected) exposure to COVID-19; E78.5 Hyperlipidemia, unspecified; K21.9 Gastro-esophageal reflux disease without esophagitis; E11.43 Type 2 diabetes mellitus with diabetic autonomic (poly)neuropathy; M19.90 Unspecified osteoarthritis, unspecified site; F32.A Depression, unspecified; I10 Essential (primary) hypertension; G89.4 Chronic pain syndrome; Z98.51 Tubal ligation status; Z98.890 Other specified postprocedural states; Z88.0 Allergy status to penicillin; Z88.1 Allergy status to other antibiotic agents; Z88.2 Allergy status to sulfonamides; Z88.8 Allergy status to other drugs, medicaments and biological substances; Z79.899 Other long term (current) drug therapy
CPT/HCPCS: 36415; 71045; 71260; 80053; 82803; 83036; 83735; 85025; 85060; 85379; 87502; 94640; 94667; 94760; 94761; 94799; A9270; C9803; J1815; J2270; J2920; J2930; J3475; Q9967; U0003

== ENCOUNTER 2022-09-28 17:53 | Emergency (ER) | payer MEDICARE, OTHER ==
[~2022-09-28] VITALS: Ht 154.9 cm; Wt 56.3 kg
[~2022-09-28 17:53] MED LIST changes: +DILTIAZEM 24HR120 MG PO; +LEVALBUTER1.25 MG/3 INH; +LEVALBUTEROL TA15 GM INH; +MAG DELAY64 M1 PO; +MAGNESIUM OXID400 M1 PO; +TYLENOL EXTRA500 MG PO; +VITAMIN C1000 MG PO; +VITAMIN D350 MC3 PO; +XOPENEX HFA15 GM INH
--- OUTSIDE RECORDS SUMMARY | 2022-09-28 17:55 | XMS ---
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 Haris has no Care Guidelines for this patient. Marni VISIT COUNT (12 MO.) 7 [facility] [place]. TOTAL 7 NOTE: Visits indicate total known visits. ED/C VISIT TRACKING (12 MO.) 09/28/2022 17:54 [facility] [place] TYPE: Emergency COMPLAINT: - SOB 09/22/2022 18:30 [facility] [place] [place] TYPE: Emergency COMPLAINT: - DIFFICULTY BREATHING 08/30/2022 16:21 [facility] [place] TYPE: Emergency COMPLAINT: - SHORTNESS OF BREATH 07/12/2022 12:37 [facility] [place] TYPE: Emergency COMPLAINT: - LOW B/P DIAGNOSES: - Allergy status to analgesic agent - Allergy status to other antibiotic agents - Allergy status to penicillin - Allergy status to sulfonamides - Chronic obstructive pulmonary disease, unspecified - Dehydration - Essential (primary) hypertension - vice president of contracts (current) use of oral hypoglycemic drugs - half-way (current) use of systemic steroids - Other garage attendant (current) drug therapy - Type 2 diabetes mellitus without complications - Unspecified asthma, uncomplicated 07/07/2022 16:18 [facility] [place] TYPE: Emergency COMPLAINT: - SHORTNESS OF BREATH 03/04/2022 04:[address] [facility] [place] TYPE: Emergency COMPLAINT: - SOB 01/12/2022 09:[address] [facility] [place] TYPE: Emergency COMPLAINT: - DIFFICULTY BREATHING DIAGNOSES: - Allergy status to analgesic agent - Allergy status to other antibiotic agents - Allergy status to penicillin - Allergy status to sulfonamides - Contact with and (suspected) exposure to COVID-19 - Essential (primary) hypertension - half-way (current) use of oral hypoglycemic drugs - Other intermediate (current) drug therapy - Shortness of breath - Type 2 diabetes mellitus without complications - Unspecified asthma, uncomplicated - Unspecified osteoarthritis, unspecified site INPATIENT VISIT TRACKING (12 MO.) 09/22/2022 18:31 [facility] [place] TYPE: Observation COMPLAINT: - COPD EXACERBATION, ACUTE DIAGNOSES: - Adverse effect of calcium-channel blockers, initial encounter - Allergy status to other drugs, medicaments and biological substances - Allergy status to penicillin - Allergy status to sulfonamides - Chronic obstructive pulmonary disease with (acute) exacerbation - Contact with and (suspected) exposure to COVID-19 - Hypomagnesemia - Tachycardia, unspecified - Type 2 diabetes mellitus without complications - Unspecified asthma with (acute) exacerbation 08/30/2022 19:53 [facility] [place] TYPE: Medical Surgical COMPLAINT: - COPD EXACERBATION DIAGNOSES: - Acute respiratory failure with hypoxia - Acute respiratory failure with hypoxia - Allergy status to other antibiotic agents - Allergy status to other antibiotic agents - Allergy status to other drugs, medicaments and biological substances - Allergy status to other drugs, medicaments and biological substances - Allergy status to penicillin - Allergy status to penicillin - Allergy status to sulfonamides - Allergy status to sulfonamides - Chronic obstructive pulmonary disease with (acute) exacerbation - Chronic pain syndrome - Chronic pain syndrome - Contact with and (suspected) exposure to COVID-19 - Contact with and (suspected) exposure to COVID-19 - Depression, unspecified - Depression, unspecified - Essential (primary) hypertension - Essential (primary) hypertension - Gastro-esophageal reflux disease without esophagitis - Gastro-esophageal reflux disease without esophagitis - Hyperlipidemia, unspecified - Hyperlipidemia, unspecified - Other intermediate (current) drug therapy - Other garage attendant (current) drug therapy - Other specified postprocedural states - Other specified postprocedural states - Tubal ligation status - Tubal ligation status - Type 2 diabetes mellitus with diabetic autonomic (poly)neuropathy - Type 2 diabetes mellitus with diabetic neuropathy, unspecified - Unspecified osteoarthritis, unspecified site - Unspecified osteoarthritis, unspecified site 07/07/2022 16:19 [facility] [place] TYPE: Observation COMPLAINT: - ACUTE ASTHMA EXACERBATION,HYPOMAGNESEMIA DIAGNOSES: - Allergy status to other antibiotic agents - Allergy status to other drugs, medicaments and biological substances - Allergy status to penicillin - Allergy status to sulfonamides - Contact with and (suspected) exposure to COVID-19 - Hypomagnesemia - Type 2 diabetes mellitus without complications - Unspecified asthma with (acute) exacerbation 03/06/2022 10:32 [facility] [place] TYPE: Medical Surgical COMPLAINT: - HYPOXIC RESPIRATORY FAILURE DIAGNOSES: - Acute respiratory failure with hypoxia - Acute sinusitis, unspecified - Acute sinusitis, unspecified - Allergy status to other antibiotic agents - Allergy status to other antibiotic agents - Allergy status to other drugs, medicaments and biological substances - Allergy status to other drugs, medicaments and biological substances - Allergy status to penicillin - Allergy status to penicillin - Allergy status to sulfonamides - Allergy status to sulfonamides - Chronic obstructive pulmonary disease with (acute) exacerbation - Contact with and (suspected) exposure to COVID-19 - Contact with and (suspected) exposure to COVID-19 - Depression, unspecified - Depression, unspecified - Essential (primary) hypertension - Essential (primary) hypertension - Hyperlipidemia, unspecified - Hyperlipidemia, unspecified - Insomnia, unspecified - Insomnia, unspecified - half-way (current) use of inhaled steroids - vice president of contracts (current) use of inhaled steroids - vice president of contracts (current) use of oral hypoglycemic drugs - half-way (current) use of oral hypoglycemic drugs - Other intermediate (current) drug therapy - Other intermediate (current) drug therapy - Other postherpetic nervous system involvement - Other postherpetic nervous system involvement - Other specified postprocedural states - Other specified postprocedural states - Severe persistent asthma with (acute) exacerbation - Severe persistent asthma with (acute) exacerbation - Tachycardia, unspecified - Tachycardia, unspecified - Tubal ligation status - Tubal ligation status - Type 2 diabetes mellitus without complications - Type 2 diabetes mellitus without complications - Unspecified osteoarthritis, unspecified site - Unspecified osteoarthritis, unspecified site [email or web address]
[2022-09-28 21:00] VITALS: BP 140/90
--- NOTE | 2022-09-29 12:30 | EKG ---
[facility] [address] [facility] [place] [address] Signed Sinus tachycardia Right bundle branch block Possible Lateral infarct , age undetermined Abnormal ECG When compared with ECG of 22-SEP-2022 18:51, Borderline criteria for Lateral infarct are now present Nonspecific T wave abnormality has replaced inverted T waves in Lateral leads Confirmed by LIAN DOYLE MD ([id number]) on 09/29/2022 12:29:52 PM Electronically Signed By: LIAN DOYLE MD 09/29/22 1230 PATIENT NAME: KETIH ANGLIN Electrocardiogram DATE OF : 48 PHYSICIAN: LIAN DOYLE MD REPORT #: [id number] REPORT IS CONFIDENTIAL AND NOT TO BE RELEASED WITHOUT AUTHORIZATION
== END 2022-09-28 21:00 | disposition home or self-care (01) ==
LOC: ED 17:53
DX: J44.1 Chronic obstructive pulmonary disease with (acute) exacerbation (principal); J45.909 Unspecified asthma, uncomplicated; I10 Essential (primary) hypertension; E11.9 Type 2 diabetes mellitus without complications; M19.90 Unspecified osteoarthritis, unspecified site; Z88.2 Allergy status to sulfonamides; Z88.0 Allergy status to penicillin; Z88.1 Allergy status to other antibiotic agents; Z88.6 Allergy status to analgesic agent; Z79.899 Other long term (current) drug therapy
CPT/HCPCS: 36415; 71045; 80053; 83880; 84484; 85025; 93005; 93010; 99285-25

== ENCOUNTER 2023-02-02 19:13 | Emergency (ER) | payer MEDICARE, OTHER ==
[~2023-02-02] VITALS: Ht 154.9 cm; Wt 56.3 kg
[2023-02-02] MEDS ORDERED: FERROUS SULFAT324 MG PO (20:10)
[2023-02-02 20:27] VITALS: BP 129/72
== END 2023-02-02 20:28 | disposition home or self-care (01) ==
LOC: ED 19:13
DX: J44.9 Chronic obstructive pulmonary disease, unspecified (principal); D51.9 Vitamin B12 deficiency anemia, unspecified; J45.909 Unspecified asthma, uncomplicated; I10 Essential (primary) hypertension; E11.9 Type 2 diabetes mellitus without complications; Z88.2 Allergy status to sulfonamides; Z88.0 Allergy status to penicillin; Z88.1 Allergy status to other antibiotic agents; Z88.6 Allergy status to analgesic agent; Z79.899 Other long term (current) drug therapy; Z79.84 Long term (current) use of oral hypoglycemic drugs
CPT/HCPCS: 96372; 99284; J3420; J8540

== ENCOUNTER 2023-03-31 14:11 | Emergency (ER) | payer MEDICARE, OTHER ==
[~2023-03-31] VITALS: Ht 154.9 cm; Wt 56.3 kg
[~2023-03-31 14:11] MED LIST changes: +FERROUS SULFAT324 MG PO
[2023-03-31 14:40] LABS: BASOPHILS 0.5 % (0-2); EOSINOPHILS 4.4 % (0-6); HEMATOCRIT 36.2 % (35.0-50.0); HEMOGLOBIN 11.6 g/dL (12.0-18.0); LYMPHOCYTES 14.6 % (24-44); MCH 24.6 (27-36); MCV 76.7 fl (81-99); MONOCYTES 9.4 % (0-12); NEUTROPHILS 71.1 % (39-80); PLATELET COUNT 404 K/uL (140-440); RBC 4.72 M/ul (4.3-5.7); RDW 21.4 (10.5-15.0)
[2023-03-31 14:56] LABS: ALBUMIN 2.8 g/dL (3.4-5.0); ALBUMIN/GLOBULIN RATIO 0.7 (1.1-2.4); ANION GAP 17.3 (7-21); BILIRUBIN, TOTAL 0.1 ng/dL (0.2-1.0); BUN/CREATININE RATIO 22.36 (6.0-28.6); CREATININE, SERUM 0.76 mg/dL (0.55-1.02); POTASSIUM 4.3 mmol/L (3.5-5.1); PROTEIN, TOTAL 6.8 g/dL (6.4-8.2)
[2023-03-31] MEDS ORDERED: ZITHROMAX250 MG PO (16:28)
[2023-03-31] MEDS ORDERED: PREDNISONE20 MG PO (16:28)
[2023-03-31 17:09] VITALS: BP 139/82
--- NOTE | 2023-03-31 22:51 | EKG ---
[facility] [address] [facility] [place] [address] Signed Sinus tachycardia Right bundle branch block Inferior infarct , age undetermined Abnormal ECG When compared with ECG of 28-SEP-2022 19:48, Nonspecific T wave abnormality, improved in Inferior leads T wave inversion less evident in Anterior leads Confirmed by Dominguez Valenzuela MD () on 03/31/2023 10:51:25 PM Electronically Signed By: DOMINGUEZ VALENZUELA MD 03/31/23 2251 PATIENT NAME: KEITH ANGLIN Electrocardiogram DATE OF : 48 PHYSICIAN: DOMINGUEZ VALENZUELA MD REPORT #: [id number] REPORT IS CONFIDENTIAL AND NOT TO BE RELEASED WITHOUT AUTHORIZATION
== END 2023-03-31 17:05 | disposition home or self-care (01) ==
LOC: ED 14:11
PROVIDERS: Emergency Medicine
DX: J44.1 Chronic obstructive pulmonary disease with (acute) exacerbation (principal); R00.0 Tachycardia, unspecified; I10 Essential (primary) hypertension; E11.9 Type 2 diabetes mellitus without complications; Z99.81 Dependence on supplemental oxygen; Z11.52 Encounter for screening for COVID-19; Z88.0 Allergy status to penicillin; Z88.1 Allergy status to other antibiotic agents; Z88.2 Allergy status to sulfonamides; Z88.6 Allergy status to analgesic agent; Z88.8 Allergy status to other drugs, medicaments and biological substances; Z79.84 Long term (current) use of oral hypoglycemic drugs; Z79.899 Other long term (current) drug therapy; Z79.51 Long term (current) use of inhaled steroids
CPT/HCPCS: 36415; 71045; 80053; 83880; 85025; 93005; 93010; 94640; 99285-25; J7512

== ENCOUNTER 2023-06-07 16:44 | Emergency (ER) | payer MEDICARE, OTHER ==
[~2023-06-07] VITALS: Ht 154.9 cm; Wt 59.0 kg
[~2023-06-07 16:44] MED LIST changes: +ZITHROMAX250 MG PO
[2023-06-07] MEDS ORDERED: ALBUTEROL/IPRATROPIUM 3 ML NEB INH PRN (17:00)
[2023-06-07 17:30] LABS: HEMOGLOBIN 12.1 g/dL (12.0-18.0); MCH 26.1 (27-36); MCHC 33.7 g/dl (30-36); MCV 77.6 fl (81-99); PLATELET COUNT 471 K/uL (140-440); RBC 4.64 M/ul (4.3-5.7); RDW 18.1 (10.5-15.0)
[2023-06-07 17:46] LABS: ALBUMIN 2.1 g/dL (3.4-5.0); ALBUMIN/GLOBULIN RATIO 0.48 (1.1-2.4); ANION GAP 15.7 (7-21); BILIRUBIN, TOTAL 0.4 ng/dL (0.2-1.0); BUN/CREATININE RATIO 28.12 (6.0-28.6); CALCIUM 8.8 mg/dL (8.5-10.1); CREATININE, SERUM 0.64 mg/dL (0.55-1.02); POTASSIUM 3.7 mmol/L (3.5-5.1); PROTEIN, TOTAL 6.5 g/dL (6.4-8.2)
[2023-06-07 17:56] LABS: BASOPHILS, MANUAL DIFF 1; LYMPHOCYTES, MANUAL DIFF 40; MONOCYTES, MANUAL DIFF 10; NEUTROPHILS, MANUAL DIFF 49
[2023-06-07 17:59] LABS: MAGNESIUM 0.8 mg/dL (1.8-2.4)
[2023-06-07] MEDS ORDERED: methylPREDNISolone SOD SUCC 125 MG/2 ML VIAL IV ONE (19:30)
[2023-06-07] MEDS ORDERED: MAGNESIUM SULFATE 4 GM/100 ML BAG IV ONE (19:45)
[2023-06-07] MEDS ORDERED: MAGNESIUM OXID400 M1 PO (20:07)
[2023-06-07] MEDS ORDERED: AZITHROMYCIN 250 MG HOME.PACK PO ONE (20:15)
[2023-06-07] MEDS ORDERED: methylPREDNISolone 4 MG HOME.PACK PO ONE (20:15)
[2023-06-07 22:54] VITALS: BP 130/78
--- NOTE | 2023-06-10 11:55 | EKG ---
[facility] [address] [facility] [facility] [place] [address] Signed Sinus tachycardia Low voltage QRS Right bundle branch block Inferior infarct (cited on or before 14-MAR-2016) Abnormal ECG When compared with ECG of 31-MAR-2023 14:51, Questionable change in initial forces of Inferior leads Confirmed by Mario Meade MD ([id number]) on 06/10/2023 11:55:31 AM Electronically Signed By: MARIO MEADE 06/10/23 1155 PATIENT NAME: KEITH ANGLIN Electrocardiogram DATE OF : 48 PHYSICIAN: MARIO MEADE REPORT #: [id number] REPORT IS CONFIDENTIAL AND NOT TO BE RELEASED WITHOUT AUTHORIZATION
== END 2023-06-07 22:57 | disposition home or self-care (01) ==
LOC: ED 16:44
PROVIDERS: Emergency Medicine
DX: J44.1 Chronic obstructive pulmonary disease with (acute) exacerbation (principal); E83.42 Hypomagnesemia; I10 Essential (primary) hypertension; E11.9 Type 2 diabetes mellitus without complications; F32.A Depression, unspecified; M19.90 Unspecified osteoarthritis, unspecified site; Z88.2 Allergy status to sulfonamides; Z88.1 Allergy status to other antibiotic agents; Z88.0 Allergy status to penicillin; Z88.6 Allergy status to analgesic agent; Z88.8 Allergy status to other drugs, medicaments and biological substances; Z79.899 Other long term (current) drug therapy; Z79.84 Long term (current) use of oral hypoglycemic drugs; Z79.51 Long term (current) use of inhaled steroids
CPT/HCPCS: 36415; 71045; 80053; 83735; 84484; 85025; 93005; 93010; 94640; 96374; 96375; 99285-25; J2930; J3475

== ENCOUNTER 2023-06-19 15:47 | Emergency (ER) | payer MEDICARE, OTHER ==
[~2023-06-19] VITALS: Ht 154.9 cm; Wt 57.3 kg
--- OUTSIDE RECORDS SUMMARY | 2023-06-19 15:56 | XMS ---
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 Haris has no Care Guidelines for this patient. [facility] ([facility] MO.) [facility] NOTE: Visits indicate total known visits. [facility]ACKING (12 MO.) [facility]2023 15[facility] [place] [facility] COMPLAINT: - DIFFICULTY BREATHING 06/07/2023 16:44 [facility] [place] TYPE: Emergency COMPLAINT: - DIFFICULTY BREATHING DIAGNOSES: - Allergy status to analgesic agent - Allergy status to other antibiotic agents - Allergy status to other drugs, medicaments and biological substances - Allergy status to penicillin - Allergy status to sulfonamides - Chronic obstructive pulmonary disease with (acute) exacerbation - Depression, unspecified - Essential (primary) hypertension - Hypomagnesemia - long-term (current) use of inhaled steroids - long-term (current) use of oral hypoglycemic drugs - Other custodial (current) drug therapy - Shortness of breath - Type 2 diabetes mellitus without complications - Unspecified osteoarthritis, unspecified site 03/31/2023 14:12 [facility] [place] TYPE: Emergency COMPLAINT: - COUGH, ASTHMA GETTING WORSE DIAGNOSES: - Allergy status to analgesic agent - Allergy status to other antibiotic agents - Allergy status to other drugs, medicaments and biological substances - Allergy status to penicillin - Allergy status to sulfonamides - Chronic obstructive pulmonary disease with (acute) exacerbation - Dependence on supplemental oxygen - Encounter for screening for COVID-19 - Essential (primary) hypertension - label press operator (current) use of inhaled steroids - long-term (current) use of oral hypoglycemic drugs - Other custodial (current) drug therapy - Shortness of breath - Tachycardia, unspecified - Type 2 diabetes mellitus without complications 02/02/2023 19:13 [facility] [place] TYPE: Emergency COMPLAINT: - DIFFICULTY BREATHING DIAGNOSES: - Allergy status to analgesic agent - Allergy status to other antibiotic agents - Allergy status to penicillin - Allergy status to sulfonamides - Chronic obstructive pulmonary disease, unspecified - Essential (primary) hypertension - label press operator (current) use of oral hypoglycemic drugs - Other fiction and nonfiction writer prose (current) drug therapy - Shortness of breath - Type 2 diabetes mellitus without complications - Unspecified asthma, uncomplicated - Vitamin B12 deficiency anemia, unspecified 09/28/2022 17:54 [facility] [place] TYPE: Emergency COMPLAINT: - SOB DIAGNOSES: - Allergy status to analgesic agent - Allergy status to other antibiotic agents - Allergy status to penicillin - Allergy status to sulfonamides - Chronic obstructive pulmonary disease with (acute) exacerbation - Essential (primary) hypertension - Other custodial (current) drug therapy - Shortness of breath - Type 2 diabetes mellitus without complications - Unspecified asthma, uncomplicated - Unspecified osteoarthritis, unspecified site 09/22/2022 18:30 [facility] [place] TYPE: Emergency COMPLAINT: - DIFFICULTY BREATHING 08/30/2022 16:21 [facility] [place] TYPE: Emergency COMPLAINT: - SHORTNESS OF BREATH 07/12/2022 12:37 [facility] [place] TYPE: Emergency COMPLAINT: - LOW B/P DIAGNOSES: - Allergy status to analgesic agent - Allergy status to other antibiotic agents - Allergy status to penicillin - Allergy status to sulfonamides - Chronic obstructive pulmonary disease, unspecified - Dehydration - Essential (primary) hypertension - label press operator (current) use of oral hypoglycemic drugs - long-term (current) use of systemic steroids - Other fiction and nonfiction writer prose (current) drug therapy - Type 2 diabetes mellitus without complications - Unspecified asthma, uncomplicated 07/07/2022 16:18 [facility] [place] TYPE: Emergency COMPLAINT: - SHORTNESS OF BREATH INPATIENT VISIT TRACKING (12 MO.) 09/22/2022 18:31 [...] Hyperlipidemia, unspecified - Hyperlipidemia, unspecified - Other custodial (current) drug therapy - Other custodial (current) drug therapy - Other specified postprocedural [...] complications - Unspecified asthma with (acute) exacerbation [email or web address]
[2023-06-19] MEDS ORDERED: MAG-OXIDE400 MG PO (16:10)
[2023-06-19] MEDS ORDERED: ALBUTEROL/IPRATROPIUM 3 ML NEB INH ONE ×2 (16:30→18:45)
[2023-06-19] MEDS ORDERED: predniSONE 20 MG TAB PO ONE (16:30)
[2023-06-19] MEDS ORDERED: IPRAT-ALBUT 0.5-3 ML INH (17:16)
[2023-06-19 17:18] LABS: BASOPHILS 0.5 % (0-2); EOSINOPHILS 2.3 % (0-6); HEMATOCRIT 36.3 % (35.0-50.0); HEMOGLOBIN 11.8 g/dL (12.0-18.0); LYMPHOCYTES 17.9 % (24-44); MCH 26.2 (27-36); MCHC 32.4 g/dl (30-36); MCV 80.9 fl (81-99); MONOCYTES 12.8 % (0-12); NEUTROPHILS 66.5 % (39-80); PLATELET COUNT 407 K/uL (140-440); RBC 4.49 M/ul (4.3-5.7); RDW 18.1 (10.5-15.0)
[2023-06-19 17:28] LABS: ALBUMIN 2.4 g/dL (3.4-5.0); ALBUMIN/GLOBULIN RATIO 0.52 (1.1-2.4); ANION GAP 15.5 (7-21); BILIRUBIN, TOTAL 0.2 ng/dL (0.2-1.0); BUN/CREATININE RATIO 23.61 (6.0-28.6); CALCIUM 9.4 mg/dL (8.5-10.1); CREATININE, SERUM 0.72 mg/dL (0.55-1.02); MAGNESIUM 1.5 mg/dL (1.8-2.4); POTASSIUM 4.5 mmol/L (3.5-5.1)
[2023-06-19] MEDS ORDERED: MAGNESIUM OXIDE 400 MG TABLET PO ONE (17:45)
[2023-06-19 19:14] VITALS: BP 151/141
== END 2023-06-19 19:15 | disposition home or self-care (01) ==
LOC: ED 15:47
PROVIDERS: Emergency Medicine
DX: J44.1 Chronic obstructive pulmonary disease with (acute) exacerbation (principal); M19.90 Unspecified osteoarthritis, unspecified site; I10 Essential (primary) hypertension; E11.9 Type 2 diabetes mellitus without complications; F32.A Depression, unspecified; Z88.2 Allergy status to sulfonamides; Z88.1 Allergy status to other antibiotic agents; Z88.0 Allergy status to penicillin; Z88.6 Allergy status to analgesic agent; Z88.8 Allergy status to other drugs, medicaments and biological substances; Z79.899 Other long term (current) drug therapy; Z79.84 Long term (current) use of oral hypoglycemic drugs; Z79.51 Long term (current) use of inhaled steroids; Z99.81 Dependence on supplemental oxygen
CPT/HCPCS: 36415; 80053; 83735; 85025; 94640; 99285-25; J7512

== ENCOUNTER 2024-06-28 12:24 | Emergency (ER) | payer MEDICARE, OTHER ==
[~2024-06-28] VITALS: Ht 154.9 cm; Wt 99.8 kg
[~2024-06-28 12:24] MED LIST changes: +MAG-OXIDE400 MG PO
[2024-06-28 12:51] LABS: BASOPHILS 0.3 % (0-2); EOSINOPHILS 7.3 % (0-6); HEMATOCRIT 41.8 % (35.0-50.0); HEMOGLOBIN 14.2 g/dL (12.0-18.0); LYMPHOCYTES 17.6 % (24-44); MCH 29.8 (27-36); MCHC 33.9 g/dl (30-36); MCV 87.9 fl (81-99); MONOCYTES 12.4 % (0-12); NEUTROPHILS 62.4 % (39-80); PLATELET COUNT 255 K/uL (140-440); RBC 4.76 M/ul (4.3-5.7); RDW 13.6 (10.5-15.0)
[2024-06-28] MEDS ORDERED: ALBUTEROL/IPRATROPIUM 3 ML NEB INH ONE (13:00)
[2024-06-28 13:09] LABS: ALBUMIN 3.8 g/dL (3.4-5.0); ALBUMIN/GLOBULIN RATIO 1.09 (1.1-2.4); ANION GAP 16.1 (7-21); BILIRUBIN, TOTAL 0.4 mg/dL (0.2-1.0); BUN/CREATININE RATIO 18.75 (6.0-28.6); CALCIUM 9.5 mg/dL (8.5-10.1); CREATININE, SERUM 1.12 mg/dL (0.55-1.02); POTASSIUM 4.1 mmol/L (3.5-5.1); PROTEIN, TOTAL 7.3 g/dL (6.4-8.2)
[2024-06-28 14:15] LABS: INFLUENZA B NAA NEGATIVE (NEGATIVE); RESPIRATORY SYNCYTIAL VIR NAA NEGATIVE (NEGATIVE)
[2024-06-28] MEDS ORDERED: ZITHROMAX250 MG PO (14:56)
[2024-06-28] MEDS ORDERED: PREDNISONE20 MG PO (14:56)
[2024-06-28 15:14] VITALS: BP 128/80
--- NOTE | 2024-06-30 21:31 | EKG ---
[facility] [address] [facility] [place] [address] Signed Sinus tachycardia Right bundle branch block Possible Lateral infarct , age undetermined Inferior infarct (cited on or before 14-MAR-2016) Abnormal ECG When compared with ECG of 07-JUN-2023 16:55, Borderline criteria for Lateral infarct are now present Confirmed by Manuel Jim DO ([id number]) on 06/30/2024 9:31:25 PM Electronically Signed By: MANUEL JIM DO 06/30/242130 PATIENT NAME: KEITH ANGLIN Electrocardiogram DATE OF : 48 PHYSICIAN: MANUEL JIM DO REPORT #: [id number] REPORT IS CONFIDENTIAL AND NOT TO BE RELEASED WITHOUT AUTHORIZATION
== END 2024-06-28 15:19 | disposition home or self-care (01) ==
LOC: ED 12:24
PROVIDERS: Emergency Medicine
DX: J44.1 Chronic obstructive pulmonary disease with (acute) exacerbation (principal); J44.0 Chronic obstructive pulmonary disease with (acute) lower respiratory infection; J18.9 Pneumonia, unspecified organism; I10 Essential (primary) hypertension; E11.9 Type 2 diabetes mellitus without complications; Z88.2 Allergy status to sulfonamides; Z88.1 Allergy status to other antibiotic agents; Z88.0 Allergy status to penicillin; Z88.6 Allergy status to analgesic agent; Z88.8 Allergy status to other drugs, medicaments and biological substances; Z79.84 Long term (current) use of oral hypoglycemic drugs; Z79.899 Other long term (current) drug therapy
CPT/HCPCS: 36415; 71045; 80053; 83880; 84484; 85025; 87502; 93005; 93010; 94640; 99285-25; U0002

== ENCOUNTER 2024-07-25 10:53 | Emergency (ER) | payer MEDICARE, OTHER ==
[~2024-07-25] VITALS: Ht 154.9 cm; Wt 58.2 kg
--- OUTSIDE RECORDS SUMMARY | 2024-07-25 10:59 | XMS ---
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 Haris has no Care Guidelines for this patient. Marni VISIT COUNT (12 MO.) 2 [facility] TOTAL 3 NOTE: Visits indicate total known visits. ED/C VISIT TRACKING (12 MO.) 07/25/2024 10:54 [facility] [place] TYPE: Emergency COMPLAINT: - NOSE BLEED 07/19/2024 11:41 [facility] [place] [facility] DIAGNOSES: - Hypomagnesemia - Tachycardia, unspecified - Palpitations 06/28/2024 12:24 [facility] [place] TYPE: Emergency COMPLAINT: - SHORTNESS OF BREATH DIAGNOSES: - Allergy status to analgesic agent - Allergy status to other antibiotic agents - Allergy status to other drugs, medicaments and biological substances - Allergy status to penicillin - Allergy status to sulfonamides - Chronic obstructive pulmonary disease with (acute) exacerbation - Chronic obstructive pulmonary disease with (acute) lower respiratory infection - Essential (primary) hypertension - [facility] (current) use of oral hypoglycemic drugs - Other senior care (current) drug therapy - Pneumonia, unspecified organism - Shortness of breath - Type 2 diabetes mellitus without complications INPATIENT VISIT TRACKING (12 MO.) No inpatient visits to display in this time frame [email or web address]
[2024-07-25] MEDS ORDERED: CETIRIZINE HCL10 MG PO (11:08)
[2024-07-25] MEDS ORDERED: PREDNISONE20 MG PO (12:13)
[2024-07-25] MEDS ORDERED: ALBUTEROL/IPRATROPIUM 3 ML NEB INH ONE (12:30)
[2024-07-25 12:32] VITALS: BP 142/83
--- NOTE | 2024-07-25 23:00 | EKG ---
[facility] [address] [facility] [place] [address] Signed Sinus tachycardia Right bundle branch block T wave abnormality, consider inferolateral ischemia Abnormal ECG When compared with ECG of 28-JUN-2024 12:48, Borderline criteria for Lateral infarct are no longer present Criteria for Inferior infarct are no longer present T wave inversion more evident in Anterolateral leads Confirmed by Dominguez Valenzuela MD () on 07/25/2024 11:00:15 PM Electronically Signed By: DOMINGUEZ VAELNZUELA MD 07/25/24 2300 PATIENT NAME: KEITH ANGLIN Electrocardiogram DATE OF : [birth year] PHYSICIAN: DOMINGUEZ VALENZUELA MD REPORT #: [id number] REPORT IS CONFIDENTIAL AND NOT TO BE RELEASED WITHOUT AUTHORIZATION
== END 2024-07-25 12:32 | disposition home or self-care (01) ==
LOC: ED 10:53
DX: R04.0 Epistaxis (principal); L29.9 Pruritus, unspecified; J44.89 Other specified chronic obstructive pulmonary disease; I10 Essential (primary) hypertension; E11.9 Type 2 diabetes mellitus without complications; Z88.2 Allergy status to sulfonamides; Z88.1 Allergy status to other antibiotic agents; Z88.6 Allergy status to analgesic agent; Z88.0 Allergy status to penicillin; Z88.8 Allergy status to other drugs, medicaments and biological substances
CPT/HCPCS: 93005; 93010; 94640; 99283

== ENCOUNTER 2024-09-14 18:53 | Inpatient (IN) | payer MEDICARE, OTHER ==
[~2024-09-14] VITALS: Ht 154.9 cm; Wt 60.5 kg
[~2024-09-14 18:53] MED LIST changes: +CETIRIZINE HCL10 MG PO
[2024-09-14] MEDS ORDERED: METOPROLOL SUCC25 MG PO (19:07)
[2024-09-14] MEDS ORDERED: FAMOTIDINE20 MG PO (19:07)
[2024-09-14] MEDS ORDERED: CEFTRIAXONE SODIUM 2 GM in SODIUM CHLORIDE 0.9% 100 ML IV ONE (19:15)
[2024-09-14] MEDS ORDERED: methylPREDNISolone SOD SUCC 125 MG/2 ML VIAL IV ONE (19:15)
[2024-09-14] MEDS ORDERED: LACTATED RINGER'S 1,000 ML IV ONE ×2 (19:15→21:15)
[2024-09-14 19:22] LABS: PH, VENOUS 7.414 (7.31-7.41)
[2024-09-14 19:24] LABS: BASOPHILS 0.3 % (0-2); EOSINOPHILS 2.8 % (0-6); HEMATOCRIT 39.4 % (35.0-50.0); HEMOGLOBIN 13.4 g/dL (12.0-18.0); LYMPHOCYTES 8.8 % (24-44); MCH 29.5 (27-36); MCV 86.8 fl (81-99); MONOCYTES 7.7 % (0-12); NEUTROPHILS 80.4 % (39-80); PLATELET COUNT 296 K/uL (140-440); RBC 4.54 M/ul (4.3-5.7); RDW 14.7 (10.5-15.0)
[2024-09-14 19:55] LABS: ALBUMIN 3.5 g/dL (3.4-5.0); ALBUMIN/GLOBULIN RATIO 1.09 (1.1-2.4); ANION GAP 13.7 (7-21); BILIRUBIN, TOTAL 0.4 mg/dL (0.2-1.0); BUN/CREATININE RATIO 23.75 (6.0-28.6); CALCIUM 8.6 mg/dL (8.5-10.1); CREATININE, SERUM 0.8 mg/dL (0.55-1.02); POTASSIUM 4.7 mmol/L (3.5-5.1); PROTEIN, TOTAL 6.7 g/dL (6.4-8.2)
[2024-09-14 20:00] LABS: LACTIC ACID, BLOOD 2.6 mmol/L (0.4-2.0)
[2024-09-14] MEDS ORDERED: ALBUTEROL SULFATE 0.5% 2.5 MG/0.5 ML VIAL INH ONE (21:15)
[2024-09-14] MEDS ORDERED: LACTATED RINGER'S 1,000 ML IV SCH (21:15)
[2024-09-14] MEDS ORDERED: ACETAMINOPHEN 325 MG TAB PO PRN (21:15)
[2024-09-14] MEDS ORDERED: ondansetron HCL 4 MG/2 ML VIAL IV PRN (21:15)
[2024-09-14] MEDS ORDERED: methylPREDNISolone SOD SUCC 40 MG/ML VIAL IV SCH (22:00)
[2024-09-14] MEDS ORDERED: BUDESONIDE 0.5 MG/2 ML VIAL INH SCH (22:24)
[2024-09-14 22:25] VITALS: BP 166/74
[2024-09-14] MEDS ORDERED: ALBUTEROL SULFATE 0.083% 3 ML VIAL INH PRN (22:30)
[2024-09-14] MEDS ORDERED: ALBUTEROL SULFATE 0.083% 3 ML VIAL ONE (22:34)
[2024-09-14] MEDS ORDERED: BUDESONIDE 0.5 MG/2 ML VIAL ONE (22:34)
[2024-09-14] MEDS ORDERED: LORazepam 2 MG/ML VIAL IV PRN (23:30)
[2024-09-14] MEDS ORDERED: levalbuterol HCL 1.25 MG/0.5 ML VIAL INH PRN (23:30)
[2024-09-15] VITALS (9 sets, daily range): BP systolic 127–146; BP diastolic 67–84
[2024-09-15] MEDS ORDERED: ALBUTEROL/IPRATROPIUM 3 ML NEB INH SCH
[2024-09-15] MEDS ORDERED: LACTATED RINGER'S 1,000 ML IV ONE (00:15)
[2024-09-15 01:32] LABS: BILIRUBIN, URINE NEGATIVE (negative); BLOOD/HGB, URINE NEGATIVE (Negative); KETONE, URINE SMALL (Negative); LEUK ESTERASE, URINE NEGATIVE (negative); NITRITE, URINE NEGATIVE (negative)
[2024-09-15 01:44] LABS: BACTERIA, URINE RARE /hpf (negative); CASTS, URINE HYALINE 1+ \\lpf; COLLECTION TYPE, URINE CLEAN CATCH; CRYSTALS, URINE NONE SEEN (0-1+); EPITHELIAL CELLS, URINE SQUAMOUS 1+ /lpf (0-1+); REFLEX CULTURE, URINE No (No)
[2024-09-15 05:31] LABS: BASOPHILS 0.3 % (0-2); EOSINOPHILS 0.1 % (0-6); HEMATOCRIT 35.7 % (35.0-50.0); HEMOGLOBIN 12.3 g/dL (12.0-18.0); LYMPHOCYTES 13.9 % (24-44); MCH 29.9 (27-36); MCHC 34.4 g/dl (30-36); MONOCYTES 5.5 % (0-12); NEUTROPHILS 80.2 % (39-80); PLATELET COUNT 257 K/uL (140-440); RDW 14.6 (10.5-15.0)
[2024-09-15 05:54] LABS: ALBUMIN 3.1 g/dL (3.4-5.0); ALBUMIN/GLOBULIN RATIO 1.07 (1.1-2.4); ANION GAP 13.9 (7-21); BILIRUBIN, TOTAL 0.3 mg/dL (0.2-1.0); BUN/CREATININE RATIO 22.05 (6.0-28.6); CALCIUM 8.3 mg/dL (8.5-10.1); CREATININE, SERUM 0.68 mg/dL (0.55-1.02); MAGNESIUM 1.3 mg/dL (1.8-2.4); POTASSIUM 3.9 mmol/L (3.5-5.1)
--- NOTE | 2024-09-15 07:34 | EKG ---
[facility] [address] [facility] [place] [address] Signed Sinus tachycardia Right bundle branch block Inferior infarct , age undetermined Abnormal ECG When compared with ECG of 25-JUL-2024 11:23, Inferior infarct is now present T wave inversion no longer evident in Lateral leads Confirmed by Ruthie Mullins MD ([id number]) on 09/15/2024 7:34:23 AM Electronically Signed By: RUTHIE MULLINS MD 09/15/24 0734 PATIENT NAME: KEITH ANGLIN Electrocardiogram DATE OF : [birth year] PHYSICIAN: RUTHIE MULLINS MD REPORT #: [id number] REPORT IS CONFIDENTIAL AND NOT TO BE RELEASED WITHOUT AUTHORIZATION
[2024-09-15] MEDS ORDERED: MAGNESIUM SULFATE 2 GM/50 ML BAG IV SCH (09:00)
[2024-09-15] MEDS ORDERED: ACETAMINOPHEN 325 MG TAB PO PRN (09:30)
[2024-09-15] MEDS ORDERED: PANTOPRAZOLE SODIUM 40 MG TABEC PO SCH (09:34)
[2024-09-15] MEDS ORDERED: MONTELUKAST SODIUM 10 MG TAB PO SCH (09:36)
[2024-09-15] MEDS ORDERED: CETIRIZINE HCL 10 MG TAB PO SCH (09:39)
[2024-09-15] MEDS ORDERED: ondansetron HCL 4 MG/2 ML VIAL IV PRN (09:45)
[2024-09-15] MEDS ORDERED: dilTIAZem HCL 120 MG CAPCR PO SCH (09:45)
[2024-09-15] MEDS ORDERED: methylPREDNISolone SOD SUCC 40 MG/ML VIAL IV SCH (09:45)
[2024-09-15] MEDS ORDERED: DEXTROSE 50% 50 ML SYR IV PRN ×2 (10:00)
[2024-09-15] MEDS ORDERED: DEXTROSE 5% 1,000 ML IV PRN (10:00)
[2024-09-15] MEDS ORDERED: IBLOOD GLUCOSE TEST STRIP 1 EA TEST XX PRN (10:00)
[2024-09-15] MEDS ORDERED: GLUCAGON,HUMAN RECOMBINANT 1 MG/ML VIAL SUB-Q PRN (10:00)
[2024-09-15] MEDS ORDERED: IBLOOD GLUCOSE TEST STRIP 1 EA TEST XX SCH (12:00)
[2024-09-15] MEDS ORDERED: INSULIN LISPRO 100 UNIT/ML ML SUB-Q SCH (12:00)
[2024-09-15] MEDS ORDERED: PHARMACY RENAL DOSE ADJUSTMENT 1 DOSE MISC PO SCH (12:00)
[2024-09-15] MEDS ORDERED: FUROSEMIDE20 MG PO (16:07)
[2024-09-15] MEDS ORDERED: POTASSIUM CHLOR8 ME1 PO (16:12)
[2024-09-15] MEDS ORDERED: levalbuterol HCL 1.25 MG/0.5 ML VIAL INH SCH ×2 (20:00)
[2024-09-15] MEDS ORDERED: IPRATROPIUM BROMIDE 2.5 ML VIAL INH SCH ×2 (20:00)
[2024-09-15] MEDS ORDERED: NORTRIPTYLINE HCL 25 MG CAP PO SCH (21:00)
[2024-09-16 05:13] VITALS: BP 134/77
[2024-09-16 05:25] LABS: HEMOGLOBIN 12.6 g/dL (12.0-18.0); LYMPHOCYTES 4.5 % (24-44); MCH 29.8 (27-36); MCHC 34.1 g/dl (30-36); MCV 87.4 fl (81-99); MONOCYTES 2.7 % (0-12); NEUTROPHILS 92.8 % (39-80); PLATELET COUNT 275 K/uL (140-440); RBC 4.24 M/ul (4.3-5.7); RDW 14.9 (10.5-15.0)
[2024-09-16 05:37] LABS: ANION GAP 10.7 (7-21); BUN/CREATININE RATIO 26.31 (6.0-28.6); CALCIUM 8.6 mg/dL (8.5-10.1); CREATININE, SERUM 0.76 mg/dL (0.55-1.02); POTASSIUM 4.7 mmol/L (3.5-5.1)
[2024-09-16] MEDS ORDERED: ENOXAPARIN SODIUM 40 MG/0.4 ML SYR SUB-Q SCH (09:00)
[2024-09-16 10:04] VITALS: BP 146/73
[2024-09-16] MEDS ORDERED: IRON325 M1 PO (10:18)
[2024-09-16] MEDS ORDERED: VITAMIN B-121000 MCG PO (10:18)
[2024-09-16 10:19] VITALS: BP 146/73
[2024-09-16] MEDS ORDERED: ARNUITY ELLIP200 MCG INH (10:19)
[2024-09-16] MEDS ORDERED: TRIAMCINOLONE A15 G3 TOP (10:20)
[2024-09-16] MEDS ORDERED: SEREVENT DISKU50 MCG INH (10:20)
[2024-09-16] MEDS ORDERED: COMBIVENT RESPIM4 GM INH (10:20)
[2024-09-16] MEDS ORDERED: DILTIAZEM ER180 MG PO (10:30)
[2024-09-16] MEDS ORDERED: PREDNISONE20 MG PO (10:32)
[2024-09-16] MEDS ORDERED: ATIVAN0.5 MG PO (10:35)
[2024-09-16] MEDS ORDERED: LORazepam 1 MG TAB PO ONE (12:30)
== END 2024-09-16 12:35 | disposition home or self-care (01) | DRG 189 ==
LOC: ED 18:53 → MS 18:54
PROVIDERS: Internal Medicine; ADMIT Student in an Organized Health Care Education/Training Program; ATTEND Student in an Organized Health Care Education/Training Program
DX: J96.21 Acute and chronic respiratory failure with hypoxia (principal); J44.1 Chronic obstructive pulmonary disease with (acute) exacerbation; J45.901 Unspecified asthma with (acute) exacerbation; E87.20 Acidosis, unspecified; Z99.81 Dependence on supplemental oxygen; I11.0 Hypertensive heart disease with heart failure; I50.9 Heart failure, unspecified; E11.9 Type 2 diabetes mellitus without complications; F32.A Depression, unspecified; M19.90 Unspecified osteoarthritis, unspecified site; K21.9 Gastro-esophageal reflux disease without esophagitis; F39 Unspecified mood [affective] disorder; I45.10 Unspecified right bundle-branch block; E78.5 Hyperlipidemia, unspecified; D50.9 Iron deficiency anemia, unspecified; K44.9 Diaphragmatic hernia without obstruction or gangrene; E83.42 Hypomagnesemia; Z98.51 Tubal ligation status; Z98.890 Other specified postprocedural states; Z88.1 Allergy status to other antibiotic agents; Z88.0 Allergy status to penicillin; Z88.2 Allergy status to sulfonamides; Z88.6 Allergy status to analgesic agent; Z79.84 Long term (current) use of oral hypoglycemic drugs; Z79.899 Other long term (current) drug therapy
CPT/HCPCS: 36415; 71045; 71260; 80048; 80053; 81001; 82803; 83605; 83735; 83880; 84484; 85025; 85379; 93005; 93010; 94640; 94644; 94667; 94668; 94762; 94799; 96365; 96375; 97161; 99285-25; A9270; A9270-GY; J0696; J1650; J1815; J2060; J2919; J3475; J7121; Q9967

== ENCOUNTER 2024-11-23 19:18 | Emergency (ER) | payer MEDICARE, OTHER ==
[~2024-11-23] VITALS: Ht 154.9 cm; Wt 61.6 kg
[~2024-11-23 19:18] MED LIST changes: +ARNUITY ELLIP200 MCG INH; +ATIVAN0.5 MG PO; +DILTIAZEM ER180 MG PO; +FAMOTIDINE20 MG PO; +FUROSEMIDE20 MG PO; +IRON325 M1 PO; +METOPROLOL SUCC25 MG PO; +POTASSIUM CHLOR8 ME1 PO; +TRIAMCINOLONE A15 G3 TOP; +VITAMIN B-121000 MCG PO
[2024-11-23 19:33] LABS: BASOPHILS 0.6 % (0.1-1.2); EOSINOPHILS 7.9 % (0.7-5.8); LYMPHOCYTES 19.0 % (19.3-51.7); MCH 29.3 PG (25.6-32.2); MCHC 32.8 g/dL (32.2-35.5); MCV 89.3 fL (79.4-94.8); MONOCYTES 11.2 % (4.7-12.5); NEUTROPHILS 60.5 % (34.0-71.1); RBC 4.57 M/uL (3.93-5.22)
[2024-11-23 19:51] LABS: ALT (SGPT) 27.0 U/L (14-59); AST (SGOT) 20.0 U/L (15-37); GLOMERULAR FILTRATION RATE,EST 62.0 mL/min (>60); PROTEIN, TOTAL 6.7 g/dL (6.4-8.2); UREA NITROGEN 18.0 mg/dL (7-18)
[2024-11-23] MEDS ORDERED: LEVOFLOXACIN500 MG PO (21:12)
[2024-11-23] MEDS ORDERED: methylPREDNISolone 4 MG HOME.PACK PO ONE (21:30)
[2024-11-23] MEDS ORDERED: levoFLOXacin 500 MG TAB PO ONE (21:30)
[2024-11-23] MEDS ORDERED: ALBUTEROL SULFATE 8 GM HOME.PACK INH ONE (21:30)
[2024-11-23] MEDS ORDERED: GUAIFENESIN/CODEINE 60 ML HOME.PACK PO ONE (21:30)
[2024-11-23] MEDS ORDERED: ALBUTEROL/IPRATROPIUM 3 ML NEB INH ONE (22:00)
[2024-11-23 22:29] VITALS: BP 146/82
--- NOTE | 2024-11-23 22:39 | EKG ---
[facility] [address] [facility] [place] [address] Signed Sinus tachycardia Right bundle branch block Inferior infarct (cited on or before 14-MAR-2016) Abnormal ECG When compared with ECG of 14-SEP-2024 19:02, No significant change was found Confirmed by Dominguez Valenzuela MD () on 11/23/2024 10:38:54 PM Electronically Signed By: DOMINGUEZ VALENZUELA MD 11/23/24 2239 PATIENT NAME: KEITH ANGLIN Electrocardiogram DATE OF : [birth year] PHYSICIAN: DOMINGUEZ VALENZUELA MD REPORT #: [id number] REPORT IS CONFIDENTIAL AND NOT TO BE RELEASED WITHOUT AUTHORIZATION
== END 2024-11-23 22:30 | disposition home or self-care (01) ==
LOC: ED 19:18
PROVIDERS: Family Medicine
DX: J18.9 Pneumonia, unspecified organism (principal); J44.9 Chronic obstructive pulmonary disease, unspecified; I10 Essential (primary) hypertension; E11.9 Type 2 diabetes mellitus without complications; J45.909 Unspecified asthma, uncomplicated; Z79.51 Long term (current) use of inhaled steroids; Z79.899 Other long term (current) drug therapy; Z79.52 Long term (current) use of systemic steroids; Z88.2 Allergy status to sulfonamides; Z88.1 Allergy status to other antibiotic agents; Z88.0 Allergy status to penicillin; Z88.6 Allergy status to analgesic agent; Z88.8 Allergy status to other drugs, medicaments and biological substances
CPT/HCPCS: 36415; 71045; 71260; 80053; 83880; 84484; 85025; 85379; 93005; 93010; 94640; 94664; 94667; 99285-25; Q9967; U0002

== ENCOUNTER 2024-12-23 13:06 | Emergency (ER) | payer MEDICARE, OTHER ==
[~2024-12-23] VITALS: Ht 154.9 cm; Wt 61.6 kg
--- OUTSIDE RECORDS SUMMARY | 2024-12-23 13:12 | XMS ---
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 E.DTimo VISIT COUNT (12 MO.) [address] [place] [address] [place] TOTAL 6 NOTE: Visits indicate total known visits. ED/UCC VISIT TRACKING (12 MO.) 12/23/2024 13:06 [facility] [place] TYPE: Emergency COMPLAINT: - COUGH 11/23/2024 19:18 [facility] [place] TYPE: Emergency COMPLAINT: - SHORTNESS OF BREATH DIAGNOSES: - Allergy status to analgesic agent - Allergy status to other antibiotic agents - Allergy status to other drugs, medicaments and biological substances - Allergy status to penicillin - Allergy status to sulfonamides - Chronic obstructive pulmonary disease, unspecified - Essential (primary) hypertension - long-term (current) use of inhaled steroids - long-term (current) use of systemic steroids - Other [place] [facility] (current) drug therapy - Pneumonia, unspecified organism - Shortness of breath - Type 2 diabetes mellitus without complications - Unspecified asthma, uncomplicated 09/14/2024 18:53 [facility] [place] TYPE: Emergency COMPLAINT: - SHORTNESS OF BREATH 07/25/2024 10:54 MARY Lambert TYPE: Emergency COMPLAINT: - NOSE BLEED DIAGNOSES: - Allergy status to analgesic agent - Allergy status to other antibiotic agents - Allergy status to other drugs, medicaments and biological substances - Allergy status to penicillin - Allergy status to sulfonamides - Epistaxis - Essential (primary) hypertension - Other specified chronic obstructive pulmonary disease - Pruritus, unspecified - Type 2 diabetes mellitus without complications [facility]19[facility]2024 11:[facility] DIAGNOSES: - Hypomagnesemia - Tachycardia, [...] respiratory infection - Essential (primary) hypertension - long-term (current) use of oral hypoglycemic drugs - Other middle or intermediate school principal (current) drug therapy - Pneumonia, unspecified organism - Shortness of breath - Type 2 diabetes mellitus without complications INPATIENT VISIT TRACKING (12 MO.) 09/15/2024 09:35 [facility] [place] TYPE: Medical Surgical COMPLAINT: - COPD EXACERBATION DIAGNOSES: - Acidosis, unspecified - Acidosis, unspecified - Acute and chronic respiratory failure with hypoxia - Acute and chronic respiratory failure with hypoxia - Acute cough - Allergy status to analgesic agent - Allergy status to analgesic agent - Allergy status to other antibiotic agents - Allergy status to other antibiotic agents - Allergy status to penicillin - Allergy status to penicillin - Allergy status to sulfonamides - Allergy status to sulfonamides - Chronic obstructive pulmonary disease with (acute) exacerbation - Chronic obstructive pulmonary disease with (acute) exacerbation - Dependence on supplemental oxygen - Dependence on supplemental oxygen - Depression, unspecified - Depression, unspecified - Diaphragmatic hernia without obstruction or gangrene - Diaphragmatic hernia without obstruction or gangrene - Gastro-esophageal reflux disease without esophagitis - Gastro-esophageal reflux disease without esophagitis - Heart failure, unspecified - Heart failure, unspecified - Hyperlipidemia, unspecified - Hyperlipidemia, unspecified - Hypertensive heart disease with heart failure - Hypertensive heart disease with heart failure - Hypomagnesemia - Hypomagnesemia - Iron deficiency anemia, unspecified - Iron deficiency anemia, unspecified - intermediate card tender (current) use of oral hypoglycemic drugs - long-term (current) use of oral hypoglycemic drugs - Other [place] [facility] ([place] drug therapy - Other [place] [facility] (current) drug therapy - Other specified postprocedural states - Other specified postprocedural states - Tubal ligation status - Tubal ligation status - Type 2 diabetes mellitus without complications - Type 2 diabetes mellitus without complications - Unspecified asthma with (acute) exacerbation - Unspecified asthma with (acute) exacerbation - Unspecified mood [affective] disorder - Unspecified mood [affective] disorder - Unspecified osteoarthritis, unspecified site - Unspecified osteoarthritis, unspecified site - Unspecified right bundle-branch block - Unspecified right bundle-branch block [email or web address]
[2024-12-23] MEDS ORDERED: IPRATROPIUM BROMIDE 2.5 ML VIAL INH ONE (14:00)
[2024-12-23] MEDS ORDERED: ALBUTEROL SULFATE 0.5% 2.5 MG/0.5 ML VIAL INH ONE (14:00)
[2024-12-23 14:08] LABS: BASOPHILS 0.8 % (0.1-1.2); EOSINOPHILS 9.6 % (0.7-5.8); LYMPHOCYTES 22.6 % (19.3-51.7); MCH 29.4 PG (25.6-32.2); MCHC 33.2 g/dL (32.2-35.5); MCV 88.5 fL (79.4-94.8); MONOCYTES 12.6 % (4.7-12.5); NEUTROPHILS 53.6 % (34.0-71.1); RBC 4.77 M/uL (3.93-5.22)
[2024-12-23 14:30] LABS: ALT (SGPT) 24.0 U/L (14-59); AST (SGOT) 20.0 U/L (15-37); GLOMERULAR FILTRATION RATE,EST 79.0 mL/min (>60); PROTEIN, TOTAL 6.6 g/dL (6.4-8.2); UREA NITROGEN 15.0 mg/dL (7-18)
[2024-12-23] MEDS ORDERED: BENZONATATE100 MG PO (15:25)
[2024-12-23 15:55] VITALS: BP 137/65
== END 2024-12-23 15:55 | disposition home or self-care (01) ==
LOC: ED 13:06
PROVIDERS: Emergency Medicine
DX: R05.9 Cough, unspecified (principal); J44.89 Other specified chronic obstructive pulmonary disease; E11.9 Type 2 diabetes mellitus without complications; I10 Essential (primary) hypertension; K21.9 Gastro-esophageal reflux disease without esophagitis; Z99.81 Dependence on supplemental oxygen; Z88.2 Allergy status to sulfonamides; Z88.1 Allergy status to other antibiotic agents; Z88.0 Allergy status to penicillin; Z88.8 Allergy status to other drugs, medicaments and biological substances; Z79.899 Other long term (current) drug therapy; Z79.890 Hormone replacement therapy
CPT/HCPCS: 36415; 71045; 80053; 83880; 84484; 85025; 94644; 96374; 99285-25; J2919

== ENCOUNTER 2025-01-09 11:46 | Emergency (ER) | payer MEDICARE, OTHER ==
[~2025-01-09] VITALS: Ht 154.9 cm; Wt 61.6 kg
--- OUTSIDE RECORDS SUMMARY | 2025-01-09 11:53 | XMS ---
PreManage Notification: KEITH ANGLIN Security Sack Department Supervisor Events No recent Security Events currently on file CRITERIA MET - 6 ED Visits in 6 Months - [facility] - 2 Visits in 30 Days CARE PROVIDERS -, [facility] Dentist: Drive Shaft And Steering Post Repairer Kenny Kumar PHONE: [phone] [place] Product Safety Expert/Chemical Equipment Sales Engineer Current PHONE: [phone] Haris has no Care Guidelines for this patient. E.DTimo VISIT COUNT (12 MO.) [address] [place] TOTAL 7 NOTE: Visits indicate total known visits. ED/UCC VISIT TRACKING (12 MO.) 01/09/2025 11:46 [facility] [place] TYPE: Emergency COMPLAINT: - SHORTNESS OF BREATH 12/23/2024 13:06 [facility] [place] TYPE: Emergency COMPLAINT: - COUGH DIAGNOSES: - Allergy status to other antibiotic agents - Allergy status to other drugs, medicaments and biological substances - Allergy status to penicillin - Allergy status to sulfonamides - Cough, unspecified - Dependence on supplemental oxygen - Essential (primary) hypertension - Gastro-esophageal reflux disease without esophagitis - Hormone replacement therapy - Other joint terminal attack controller (current) drug therapy - Other specified chronic obstructive pulmonary disease - Type 2 diabetes mellitus without complications 11/23/2024 19:18 [facility] [place] TYPE: Emergency COMPLAINT: - SHORTNESS OF BREATH DIAGNOSES: - Allergy status to analgesic agent - Allergy status to other antibiotic agents - Allergy status to other drugs, medicaments and biological substances - Allergy status to penicillin - Allergy status to sulfonamides - Chronic obstructive pulmonary disease, unspecified - Essential (primary) hypertension - longterm (current) use of inhaled steroids - marine oil terminal superintendent (current) use of systemic steroids - Other joint terminal attack controller (current) drug therapy - Pneumonia, unspecified organism - Shortness of breath - Type 2 diabetes mellitus without complications - Unspecified asthma, uncomplicated 09/14/2024 18:53 [facility] [place] TYPE: Emergency COMPLAINT: - SHORTNESS OF BREATH 07/25/2024 10:54 [facility] [place] TYPE: Emergency COMPLAINT: - NOSE BLEED DIAGNOSES: [...] diabetes mellitus without complications [facility]2024 11:[facility] [place] [facility] DIAGNOSES: - Hypomagnesemia - Tachycardia, unspecified - Palpitations 06/28/2024 12:24 MARY Lambert TYPE: Emergency COMPLAINT: - SHORTNESS OF BREATH [...] respiratory infection - Essential (primary) hypertension - marine oil terminal superintendent (current) use of oral hypoglycemic drugs - Other [facility] (current) drug therapy - Pneumonia, unspecified organism - Shortness of breath - Type 2 diabetes mellitus without complications INPATIENT VISIT TRACKING (12 MO.) 09/15/2024 09:[address] [facility] [place] TYPE: Medical Surgical COMPLAINT: - COPD [...] unspecified - Iron deficiency anemia, unspecified - longterm (current) use of oral hypoglycemic drugs - marine oil terminal superintendent (current) use of oral hypoglycemic drugs - Other [facility] (current) drug therapy - Other [facility] (current) drug therapy - Other specified postprocedural [...] bundle-branch block - Unspecified right bundle-branch block [email or web address]
[2025-01-09] MEDS ORDERED: ALBUTEROL/IPRATROPIUM 3 ML NEB INH PRN (12:00)
[2025-01-09 12:36] LABS: BASOPHILS 0.6 % (0.1-1.2); EOSINOPHILS 15.1 % (0.7-5.8); LYMPHOCYTES 11.3 % (19.3-51.7); MCH 29.8 PG (25.6-32.2); MCHC 33.1 g/dL (32.2-35.5); MCV 89.8 fL (79.4-94.8); MONOCYTES 9.6 % (4.7-12.5); NEUTROPHILS 62.7 % (34.0-71.1); RBC 4.00 M/uL (3.93-5.22)
[2025-01-09] MEDS ORDERED: METFORMIN HCL1000 MG PO (12:44)
[2025-01-09] MEDS ORDERED: METOPROLOL SUCC25 MG PO (12:44)
[2025-01-09 13:02] LABS: ALT (SGPT) 15.0 U/L (14-59); AST (SGOT) 16.0 U/L (15-37); GLOMERULAR FILTRATION RATE,EST 91.0 mL/min (>60); PROTEIN, TOTAL 6.0 g/dL (6.4-8.2); UREA NITROGEN 15.0 mg/dL (7-18)
[2025-01-09] MEDS ORDERED: LEVOFLOXACIN750 MG PO (14:03)
[2025-01-09] MEDS ORDERED: predniSONE 20 MG TAB PO ONE (14:15)
[2025-01-09 14:22] VITALS: BP 132/80
--- NOTE | 2025-01-10 19:50 | EKG ---
[facility] [address] [facility] [place], [place] [address] Signed Sinus tachycardia Right bundle branch block Inferior infarct (cited on or before 14-MAR-2016) Abnormal ECG When compared with ECG of 23-NOV-2024 19:40, No significant change was found Confirmed by Manuel Jim DO ([id number]) on 01/10/2025 7:50:15 PM Electronically Signed By: MANUEL JIM DO 01/10/25 1950 PATIENT NAME: KEITH ANGLIN Electrocardiogram DATE OF : 48 PHYSICIAN: MANUEL JIM DO REPORT #: [id number] REPORT IS CONFIDENTIAL AND NOT TO BE RELEASED WITHOUT AUTHORIZATION
== END 2025-01-09 14:22 | disposition home or self-care (01) ==
LOC: ED 11:46
PROVIDERS: Emergency Medicine
DX: J44.1 Chronic obstructive pulmonary disease with (acute) exacerbation (principal); I10 Essential (primary) hypertension; E11.9 Type 2 diabetes mellitus without complications; Z88.2 Allergy status to sulfonamides; Z88.1 Allergy status to other antibiotic agents; Z88.0 Allergy status to penicillin; Z88.8 Allergy status to other drugs, medicaments and biological substances; Z79.899 Other long term (current) drug therapy; Z79.84 Long term (current) use of oral hypoglycemic drugs
CPT/HCPCS: 36415; 71045; 80053; 83735; 83880; 84484; 85025; 93005; 93010; 94640; 99285-25; J7512

== ENCOUNTER 2025-02-06 17:28 | Emergency (ER) | payer MEDICARE, OTHER ==
[~2025-02-06] VITALS: Ht 154.9 cm; Wt 58.7 kg
--- OUTSIDE RECORDS SUMMARY | ~2025-02-06 | XMS | Continuity of Care Document ---
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 | Role | Phone | + + + + Unavailable | Unavailable | + + + + Unavailable | Unavailable | + + + + Allergies and Intolerances + + + + + + | date | description | facility | reaction | severity | + + + + + + | 2024-11-23 | aspirin | [facility] - | (no [...] + + + + + + | 2024-11-23 | lisinopril | [facility] - | (no [...] + + + + + + | 2024-11-23 | doxycycline | [facility] - | (no [...] + + + + + + | 2024-11-23 | penicillin V | [facility] - | [...] + + + + + + | 2024-11-23 | erythromycin | [facility] - | (no [...] severity) | | 00:00 | base | [facility] | | | | | | Hospital | | | + + + + + + Encounters No information. Functional Status No information. Immunizations + + + + | date | description | facility | + + + + | (no date) | No vaccine administered | [facility] | | | | [facility] | + + + + Medications + + + + | date | description | facility | + + + + | (no date) | cetirizine hydrochloride | [facility] | | | 10 MG Oral Tablet | [facility] | + + + + | (no date) | [facility]hydramine [facility] | | | hydrochloride 25 MG Oral | [facility] | | | Capsule | | + + + + | (no date) | triamcinolone acetonide | [facility] | | | 0.001 MG/MG Topical | [facility] | | | Ointment | | + + + + | (no date) | triamcinolone acetonide | [facility] | | | 0.005 MG/MG Topical | [facility] | | | Ointment | | + + + + | (no date) | roflumilast 0.5 MG Oral | [facility] | | | Tablet [Daliresp] | [facility] | + + + + | (no date) | linagliptin 5 MG Oral | [facility] | | | Tablet [Tradjenta] | [facility] | + + + + | (no ) | 120 ACTUAT albuterol 0.1 | [facility] | | | MG/ACTUAT / ipratropium | [facility] | | | bromide 0.0 | | + + + + | (no ) | albuterol 0.833 MG/ML / | [facility] | | | ipratropium bromide 0.167 | [facility] | | | MG/ML Inha | | + + + + | (no ) | 30 ACTUAT fluticasone | [facility] | | | furoate 0.2 MG/ACTUAT Dry | [facility] | | | Powder Inhal | | + + + + | (no ) | 7 ACTUAT umeclidinium | [facility] | | | 0.0625 MG/ACTUAT Dry Powder | [facility] | | | Inhaler [I | | + + + + | 2024-12-23 00:00 | benzonatate 100 MG Oral | [facility] | | | Capsule | [facility] | + + + + | (no ) | nortriptyline 75 MG Oral | [facility] | | Caps[facility] | [facility] | + + + + | (no ) | acetaminophen 500 MG Oral | [facility] | | | Tablet | [facility] | + + + + | (no date) | ascorbic acid 1000 MG Oral | [facility] | | | Tablet | [facility] | + + + + | 2024-11-23 00:00 | levofloxacin 500 MG Oral | [facility] | | | Tablet | [facility] | + + + + | (no date) | montelukast 10 MG Oral | [facility] | | | Tablet | [facility] | + + + + | (no date) | ciprofloxacin 500 MG Oral | [facility] | | | Tablet [Cipro] | [facility] | + + + + | (no ) | betamethasone 0.5 MG/ML | [facility] | | | Topical Lotion | [facility] | + + + + | (no date) | atorvastatin 80 MG Oral | [facility] | | | Tablet | [facility] | + + + + | (no date) | vitamin B12 1 MG Oral | [facility] | | | Tablet | [facility] | + + + + | (no date) | famotidine 20 MG Oral | [facility] | | | Tablet | [facility] | + + + + | (no date) | ferrous sulfate 325 MG | [facility] | | | Oral Tablet | [facility] | + + + + | (no date) | furosemide 20 MG Oral | [facility] | | | Tablet | [facility] | + + + + | 2025-01-09 00:00 | levofloxacin 750 MG Oral | [facility] | | | Tablet | [facility] | + + + + | () | potassium chloride 8 MEQ | [facility] | | | Extended Release Oral | [facility] | | | Tablet | | + + + + | 2025-01-09 00:00 | prednisone 20 MG Oral | [facility] | | | Tablet | [facility] | + + + + | () | prednisone 5 MG Oral | [facility] | | | Tablet | [facility] | + + + + | (no date) | terbinafine 250 MG Oral | [facility] | | | Tablet | [facility] | + + + + | (no date) | pantoprazole 40 MG Delayed | [facility] | | | Release Oral Tablet | [facility] | + + + + | (no date) | albuterol 0.83 MG/ML | [facility] | | | Inhalation Solution | [facility] | + + + + | (no date) | cholecalciferol 0.05 MG | [facility] | | | Oral Tablet | [facility] | + + + + | (no ) | metformin hydrochloride | [facility] | | | 1000 MG Oral Tablet | [facility] | + + + + | (no date) | 60 ACTUAT salmeterol 0.05 | [facility] | | | MG/ACTUAT Dry Powder | [facility] | | | Inhaler [Sere | | + + + + | (no date) | 24 HR metoprolol succinate | [facility] | | | 25 MG Extended Release | [facility] | | | Oral Table | | + + + + | (no ) | polyethylene glycol 3350 | [facility] | | | [address] MG Powder for Oral | [facility] | | | Solution [ | | + + + + | (no ) | Lacticaseibacillus | [facility] | | | rhamnosus GG [id number] | [facility] | | | UNT Oral Capsule | | + + + + | (no date) | clonidine hydrochloride | [facility] | | | 0.1 MG Oral Tablet | [facility] | + + + + | (no date) | 120 ACTUAT fluticasone | [facility] | | | propionate 0.22 MG/ACTUAT | [facility] | | | Metered Dos | | + + + + | (no date) | alendronic acid 70 MG Oral | [facility] | | | Tablet | [facility] | + + + + | (no date) | acetaminophen 300 MG / | [facility] | | | codeine phosphate 30 MG | [facility] | | | Oral Tablet | | + + + + Problems + + + + | date | description | facility | + + + + | 2024-11-23 00:00 | Pneumonia | [facility] | | | | [facility] | + + + + | 2024-12-23 00:00 | Cough | [facility] | | | | [facility] | + + + + Procedures No information. Results/Labs +--------+--------+ +---------+--------+---------+ | test | date | facility | value | unit | notes | +--------+--------+ +---------+--------+---------+ + + | Result panel 1 | + + + + + +-------+ + + | Serum or | 2024-11-23 | | 0.2 | (missing) | (missing) | | plasma total | 19:25 | [facility] | | | | | bilirubin | [facility] | | | | | measurement | | [facility] | | | | | (mass/volume | | Hospital | | | | | ) | | | | | | + + + +-------+ + + + + | Result panel 2 | + + + + + +------+ + + | Serum or | 2024-11-23 | | 20 | (missing) | (missing) | | plasma | 19:25 | [facility] | | | | | [...] 3 | + + + + + +------+ + + | Serum or | 2024-11-23 | | 27 | (missing) | (missing) | | plasma | 19:25 | [facility] | | | | | [...] 4 | + + + + + +------+ + + | Serum or | 2024-11-23 | | 98 | (missing) | (missing) | | plasma | 19:25 | [facility] | | | | | [...] 5 | + + + + + +-------+ + + | Serum or | 2024-11-23 | | 5.6 | (missing) | (missing) | | plasma | 19:25 | [facility] | | | | | [...] + + + +--------+ + + | Fibrin | 2024-11-23 | | 1.01 | (missing) | (missing) | | D-dimer FEU | 19:25 | [facility] | | | | | [Mass/volume | | - [facility] | | | | | ] in | | [facility] | | | | | Platelet | | Hospital | | | | | poor plasma | | | | | | | by | | | | | | | Immunoassay | | | | | | + + + +--------+ + + + + | Result panel 7 | + + + + + +---------+ + + | Blood | 2024-11-23 | | 10.28 | (missing) | (missing) | | leukocytes | 19:25 | [facility] | | | | | [...] + +--------+ + + | Blood | 2024-11-23 | | 4.57 | (missing) | (missing) | | erythrocytes | 19:25 | [facility] | | | | | [...] + +--------+ + + | Blood | 2024-11-23 | | 13.4 | (missing) | (missing) | | hemoglobin | 19:25 | [facility] | | | | | measurement | | - [facility] | | | | | (mass/volume | | [facility] | | | | | ) | | Hospital | | | | + + + +--------+ + + + + | Result panel 10 | + + + + + +--------+ + + | Automated | 2024-11-23 | | 40.8 | (missing) | (missing) | | blood | 19:25 | [facility] | | | | | hematocrit | | - [facility] | | | | | | [facility] | | | | | | | Hospital | | | | + + + +--------+ + + + + | Result panel 11 | + + + + + +--------+ + + | Automated | 2024-11-23 | | 89.3 | (missing) | (missing) | | erythrocyte | 19:25 | [facility] | | | | | mean | | - [facility] | | | | | corpuscular | | [facility] | | | | | volume | | Hospital | | | | + + + +--------+ + + + + | Result panel 12 | + + + + + +--------+ + + | Automated | 2024-11-23 | | 29.3 | (missing) | (missing) | | erythrocyte | 19:25 | [facility] | | | | | [...] + +--------+ + + | Automated | 2024-11-23 | | 32.8 | (missing) | (missing) | | erythrocyte | 19:25 | [facility] | | | | | [...] + +-------+ + + | Automated | 2024-11-23 | | 225 | (missing) | (missing) | | blood | 19:25 | [facility] | | | | | platelet | | - [facility] | | | | | count | | [facility] | | | | | (count/volum | | Hospital | | | | | e) | | | | | | + + + +-------+ + + + + | Result panel 15 | + + + + + +--------+ + + | Automated | 2024-11-23 | | 60.5 | (missing) | (missing) | | blood | 19:25 | [facility] | | | | | [...] 16 | + + + + + +--------+ + + | Automated | 2024-11-23 | | 19.0 | (missing) | (missing) | | blood | 19:25 | [facility] | | | | | [...] 17 | + + + + + +--------+ + + | Automated | 2024-11-23 | | 11.2 | (missing) | (missing) | | blood | 19:25 | [facility] | | | | | [...] 18 | + + + + + +-------+ + + | Automated | 2024-11-23 | | 7.9 | (missing) | (missing) | | blood | 19:25 | [facility] | | | | | [...] 19 | + + + + + +-------+ + + | Automated | 2024-11-23 | | 0.6 | (missing) | (missing) | | blood | 19:25 | [facility] | | | | | [...] 20 | + + + + + +--------+ + + | Fibrin | 2024-11-23 | | 1.01 | (missing) | (missing) | | D-dimer FEU | 19:25 | [facility] | | | | | [Mass/volume | | - [facility] | | | | | ] in | | [facility] | | | | | Platelet | | Hospital | | | | | poor plasma | | | | | | | by | | | | | | | Immunoassay | | | | | | + + + +--------+ + + + + | Result panel 21 | + + + + + +-------+ + + | Serum or | 2024-11-23 | | 134 | (missing) | (missing) | | plasma | 19:25 | [facility] | | | | | glucose | | - [facility] | | | | | measurement | | [facility] | | | | | (mass/volume | | Hospital | | | | | ) | | | | | | + + + +-------+ + + + + | Result panel 22 | + + + + + +------+ + + | Serum or | 2024-11-23 | | 18 | (missing) | (missing) | | plasma urea | 19:25 | [facility] | | | | | nitrogen | | - [facility] | | | | | measurement | | [facility] | | | | | (mass/volume | | Hospital | | | | | ) | | | | | | + + + +------+ + + + + | Result panel 23 | + + + + + +--------+ + + | Serum or | 2024-11-23 | | 0.96 | (missing) | (missing) | | plasma | 19:25 | [facility] | | | | | [...] + +------+ + + | Glomerular | 2024-11-23 | | 62 | (missing) | (missing) | | filtration | 19:25 | [facility] | | | | | [...] 25 | + + + + + +---------+ + + | Serum or | 2024-11-23 | | 18.75 | (missing) | (missing) | | plasma urea | 19:25 | [facility] | | | | | nitrogen/cre | | - [facility] | | | | | atinine mass | | [facility] | | | | | ratio | | Hospital | | | | + + + +---------+ + + + + | Result panel 26 | + + + + + +-------+ + + | Serum or | 2024-11-23 | | 144 | (missing) | (missing) | | plasma | 19:25 | [facility] | | | | | [...] +-------+ + + | Serum or | 2024-11-23 | | 4.4 | (missing) | (missing) | | plasma | 19:25 | [facility] | | | | | [...] +-------+ + + | Serum or | 2024-11-23 | | 107 | (missing) | (missing) | | plasma | 19:25 | [facility] | | | | | chloride | | - [facility] | | | | | measurement | | [facility] | | | | | (moles/volum | | Hospital | | | | | e) | | | | | | + + + +-------+ + + + + | Result panel 29 | + + + + + +------+ + + | Serum or | 2024-11-23 | | 27 | (missing) | (missing) | | plasma | 19:25 | [facility] | | | | | [...] +--------+ + + | Serum or | 2024-11-23 | | 14.4 | (missing) | (missing) | | plasma anion | 19:25 | [facility] | | | | | gap 4 | [facility] | [facility] | | | | | | [facility] | | | | + + + +--------+ + + + + | Result panel 31 | + + + + + +-------+ + + | Serum or | 2024-11-23 | | 9.2 | (missing) | (missing) | | plasma | 19:25 | [facility] | | | | | calcium | | - [facility] | | | | | measurement | | [facility] | | | | | (mass/volume | | Hospital | | | | | ) | | | | | | + + + +-------+ + + + + | Result panel 32 | + + + + + +-------+ + + | Serum or | 2024-11-23 | | 6.7 | (missing) | (missing) | | plasma | 19:25 | [facility] | | | | | protein | | - [facility] | | | | | measurement | | [facility] | | | | | (mass/volume | | Hospital | | | | | ) | | | | | | + + + +-------+ + + + + | Result panel 33 | + + + + + +-------+ + + | Serum or | 2024-11-23 | | 3.5 | (missing) | (missing) | | plasma | 19:25 | [facility] | | | | | albumin | | - [facility] | | | | | measurement | | [facility] | | | | | (mass/volume | | Hospital | | | | | ) | | | | | | + + + +-------+ + + + + | Result panel 34 | + + + + + +-------+ + + | Serum | 2024-11-23 | | 3.2 | (missing) | (missing) | | globulin | 19:25 | [facility] | | | | | measurement | | - [facility] | | | | | (mass/volume | | [facility] | | | | | ) | | Hospital | | | | + + + +-------+ + + + + | Result panel 35 | + + + + + +--------+ + + | Serum or | 2024-11-23 | | 1.09 | (missing) | (missing) | | plasma | 19:25 | [facility] | | | | | albumin/glob | | - [facility] | | | | | ulin mass | | [facility] | | | | | ratio | | Hospital | | | | + + + +--------+ + + + + | Result panel 36 | + + + + + + + + + | Respiratory | 2024-11-23 | | NEGATIVE | (missing) | (missing) | | specimen | 19:35 | [facility] | | | | | 2019 novel | | - [facility] | | | | | coronavirus | | [facility] | | | | | RNA | | Hospital | | | | | detection | | | | | | + + + + + + + + + | Result panel 37 | + + + + + + + + + | Respiratory | 2024-11-23 | | NEGATIVE | (missing) | (missing) | | specimen | 19:35 | [facility] | | | | | 2018 novel | | - [facility] | | | | | coronavirus | | [facility] | | | | | RNA | | Hospital | | | | | detection | | | | | | + + + + + + + + + | Result panel [...] 41 | + + + + + +--------+ [...] 44 | + + + + + +--------+ [...] 45 | + + + + + +-------+ [...] 46 | + + + + + +--------+ [...] 47 | + + + + + +--------+ [...] 48 | + + + + + +--------+ [...] 49 | + + + + + +-------+ [...] 50 | + + + + + +-------+ [...] 51 | + + + + + +-------+ [...] 52 | + + + + + +------+ [...] 53 | + + + + + +--------+ [...] 54 | + + + + + +------+ [...] 55 | + + + + + +---------+ [...] 56 | + + + + + +-------+ [...] 59 | + + + + + +------+ [...] 60 | + + + + + +--------+ [...] 62 | + + + + + +-------+ [...] 64 | + + + + + +-------+ [...] 65 | + + + + + +--------+ [...] 66 | + + + + + +-------+ [...] 67 | + + + + + +------+ [...] 68 | + + + + + +------+ [...] 69 | + + + + + +------+ [...] 70 | + + + + + +-------+ [...] 71 | + + + + + +---------+ [...] 72 | + + + + + +--------+ [...] 74 | + + + + + +--------+ [...] 75 | + + + + + +-------+ [...] 76 | + + + + + +-------+ [...] 77 | + + + + + +------+ [...] 78 | + + + + + +--------+ [...] 79 | + + + + + +------+ [...] 80 | + + + + + +---------+ [...] 82 | + + + + + +--------+ [...] 83 | + + + + + +-------+ [...] 85 | + + + + + +------+ [...] 86 | + + + + + +--------+ [...] 89 | + + + + + +-------+ [...] 90 | + + + + + +-------+ [...] 92 | + + + + + +--------+ [...] 93 | + + + + + +--------+ [...] 94 | + + + + + +-------+ [...] 95 | + + + + + +------+ [...] 96 | + + + + + +------+ [...] 97 | + + + + + +------+ [...] 98 | + + + + + +-------+ [...] 100 | + + + + + +--------+ [...] + + + + | Result panel 102 | + + + + + +--------+ [...] + + + + | Result panel 103 | + + + + + +-------+ [...] + + + + | Result panel 104 | + + + + + +--------+ [...] | (no date) | Never smoker | [facility] | | | | [facility] | + + + + Vital Signs No information."
--- OUTSIDE RECORDS SUMMARY | 2025-02-06 17:36 | XMS ---
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 E.Davi VISIT COUNT (12 MO.) [address] [place] [address] [place] TOTAL 8 NOTE: Visits indicate total known visits. ED/UCC VISIT TRACKING (12 MO.) 02/06/2025 17:[address] [facility] [place] TYPE: Emergency COMPLAINT: - COUGH,CAN NOT BREATH 01/09/2025 11:46 [facility] [place] TYPE: Emergency COMPLAINT: - SHORTNESS OF BREATH DIAGNOSES: - Allergy status to other antibiotic agents - Allergy status to other drugs, medicaments and biological substances - Allergy status to penicillin - Allergy status to sulfonamides - Chronic obstructive pulmonary disease with (acute) exacerbation - Cough, unspecified - Essential (primary) hypertension - salesforce administrator (current) use of oral hypoglycemic drugs - Other detention (current) drug therapy - Type 2 diabetes mellitus without complications 12/23/2024 13:06 [facility] [place] TYPE: Emergency COMPLAINT: - COUGH DIAGNOSES: - Allergy status to other antibiotic agents - Allergy status to other drugs, medicaments and biological substances - Allergy status to penicillin - Allergy status to sulfonamides - Cough, unspecified - Dependence on supplemental oxygen - Essential (primary) hypertension - Gastro-esophageal reflux disease without esophagitis - Hormone replacement therapy - Other hot mill shearer (current) drug therapy - Other specified chronic [...] disease, unspecified - Essential (primary) hypertension - salesforce administrator (current) use of inhaled steroids - salesforce administrator (current) use of systemic steroids - Other hot mill shearer (current) drug therapy - Pneumonia, unspecified organism - Shortness of breath - Type 2 diabetes mellitus without complications - Unspecified asthma, uncomplicated 09/14/2024 18:53 [facility] [place] TYPE: Emergency COMPLAINT: - SHORTNESS [...] diabetes mellitus without complications [facility]19[facility]2024 11:[facility] DIAGNOSES: - Hypomagnesemia - Tachycardia, [...] respiratory infection - Essential (primary) hypertension - [facility] (current) use of oral hypoglycemic drugs - Other hot mill shearer (current) drug therapy - Pneumonia, unspecified organism [...] unspecified - Iron deficiency anemia, unspecified - [facility] (current) use of oral hypoglycemic drugs - salesforce administrator (current) use of oral hypoglycemic drugs - Other detention (current) drug therapy - Other hot mill shearer (current) drug therapy - Other specified postprocedural [...] bundle-branch block - Unspecified right bundle-branch block [id number]
[2025-02-06] MEDS ORDERED: ALBUTEROL/IPRATROPIUM 3 ML NEB INH PRN (17:45)
[2025-02-06 18:02] LABS: BASOPHILS 0.5 % (0.1-1.2); EOSINOPHILS 19.7 % (0.7-5.8); LYMPHOCYTES 16.3 % (19.3-51.7); MCH 29.5 PG (25.6-32.2); MCHC 32.9 g/dL (32.2-35.5); MCV 89.6 fL (79.4-94.8); MONOCYTES 10.8 % (4.7-12.5); NEUTROPHILS 51.5 % (34.0-71.1); RBC 4.34 M/uL (3.93-5.22)
[2025-02-06 18:20] LABS: ALT (SGPT) 22.0 U/L (14-59); AST (SGOT) 14.0 U/L (15-37); GLOMERULAR FILTRATION RATE,EST 70.0 mL/min (>60); PROTEIN, TOTAL 6.7 g/dL (6.4-8.2); UREA NITROGEN 14.0 mg/dL (7-18)
[2025-02-06] MEDS ORDERED: ZITHROMAX250 MG PO (18:27)
[2025-02-06] MEDS ORDERED: AZITHROMYCIN 250 MG TAB PO ONE (18:30)
[2025-02-06 19:01] VITALS: BP 128/67
--- NOTE | 2025-02-08 09:25 | EKG ---
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
== END 2025-02-06 19:03 | disposition home or self-care (01) ==
LOC: ED 17:28
PROVIDERS: Emergency Medicine
DX: J44.1 Chronic obstructive pulmonary disease with (acute) exacerbation (principal); I10 Essential (primary) hypertension; E11.9 Type 2 diabetes mellitus without complications; E78.00 Pure hypercholesterolemia, unspecified; K21.9 Gastro-esophageal reflux disease without esophagitis; Z99.81 Dependence on supplemental oxygen; Z88.2 Allergy status to sulfonamides; Z88.1 Allergy status to other antibiotic agents; Z88.0 Allergy status to penicillin; Z88.6 Allergy status to analgesic agent; Z88.8 Allergy status to other drugs, medicaments and biological substances; Z79.84 Long term (current) use of oral hypoglycemic drugs; Z79.899 Other long term (current) drug therapy
CPT/HCPCS: 36415; 71045; 80053; 83735; 84484; 85025; 93005; 93010; 94640; 96374; 99285-25; J2919

== ENCOUNTER 2025-03-11 18:40 | Inpatient (IN) | payer MEDICARE, OTHER ==
[~2025-03-11] VITALS: Ht 154.9 cm; Wt 61.3 kg
--- OUTSIDE RECORDS SUMMARY | ~2025-03-11 | XMS | Continuity of Care Document ---
Demographics + + + | Address | [address] [address] | | | [place] [address] | + + + | Preferred Language | Unknown | + + + | Marital Status | | + + + | [employer] Affiliation | Unknown | + + + | Race | White | + + + | Ethnic Group | Not or | + + + Author + + + | Author | [facility] | + + + | Organization | [facility] | + + + | Address | [address] | | | [place] [address] | + + + | Phone | | + + + Care Team Providers + + + + | Care Environmental Assistant Name | Role | Phone | + + + + Unavailable | Unavailable | + + + + Unavailable | Unavailable | + + + + Allergies and Intolerances + + + + + + | date | description | facility | reaction | severity | + + + + + + | 2024-12-23 | aspirin | [facility] | (no reaction) | (no severity) | | 00:00 | | [facility] | | | + + + + + + | 2025-01-09 | aspirin | [facility] - | (no reaction) | (no severity) | | 00:00 | | [facility] | | | + + + + + + | 2025-02-06 | aspirin | [facility] - | (no reaction) | (no severity) | | 00:00 | | [facility] | | | + + + + + + | 2024-12-23 | lisinopril | [facility] - | (no reaction) | (no severity) | | 00:00 | | [facility] | | | + + + + + + | 2025-01-09 | lisinopril | [facility] - | (no reaction) | (no severity) | | 00:00 | | [facility] | | | + + + + + + | 2025-02-06 | lisinopril | [facility] - | (no reaction) | (no severity) | | 00:00 | | [facility] | | | + + + + + + | 2024-12-23 | doxycycline | [facility] - | (no reaction) | (no severity) | | 00:00 | | [facility] | | | + + + + + + | 2025-01-09 | doxycycline | [facility] - | (no reaction) | (no severity) | | 00:00 | | [facility] | | | + + + + + + | 2025-02-06 | doxycycline | [facility] - | (no reaction) | (no severity) | | 00:00 | | [facility] | | | + + + + + + | 2024-12-23 | penicillin V | [facility] - | (no reaction) | (no severity) | | 00:00 | | [facility] | | | + + + + + + | 2025-01-09 | penicillin V | [facility] - | (no reaction) | (no severity) | | 00:00 | | [facility] | | | + + + + + + | 2025-02-06 | penicillin V | [facility] - | (no reaction) | (no severity) | | 00:00 | | [facility] | | | + + + + + + | 2024-12-23 | erythromycin | [facility] - | (no reaction) | (no severity) | | 00:00 | base | [facility] | | | + + + + + + | 2025-01-09 | erythromycin | [facility] - | (no reaction) | (no severity) | | 00:00 | base | [facility] | | [facility] | | | + + + + + + | 2025-02-06 | erythromycin | [facility] - | (no reaction) | (no severity) | | 00:00 | base | [facility] | | | | | | [facility] | | | + + + + + + Encounters No information. Functional Status No information. Immunizations + + + + | date | description | facility | + + + + | (no date) | No vaccine administered | [facility] | | | | [facility] | + + + + Medications + + + + | date | description | facility | + + + + | (no date) | cetirizine hydrochloride | [facility] | | | 10 MG Oral Tablet | [facility] | + + + + | (no date) | diphenhydramine | [facility] | | | hydrochloride 25 MG Oral | [facility] | | | Capsule | | + + + + | (no date) | triamcinolone acetonide | [facility] | | | 0.001 MG/MG Topical | [facility] | | | Ointment | | + + + + | (no date) | triamcinolone acetonide | [facility] | | | 0.005 MG/MG Topical | [facility] | | | Ointment | | + + + + | (no date) | roflumilast 0.5 MG Oral | [facility] | | | Tablet [Daliresp] | [facility] | + + + + | (no date) | linagliptin 5 MG Oral | [facility] | | | Tablet [Tradjenta] | [facility] | + + + + | (no ) | 120 ACTUAT albuterol 0.1 | [facility] | | | MG/ACTUAT / ipratropium | [facility] | | | bromide 0.0 | | + + + + | (no ) | albuterol 0.833 MG/ML / | [facility] | | | ipratropium bromide 0.167 | [facility] | | | MG/ML Inha | | + + + + | (no ) | 30 ACTUAT fluticasone | [facility] | | | furoate 0.2 MG/ACTUAT Dry | [facility] | | | Powder Inhal | | + + + + | (no ) | 7 ACTUAT umeclidinium | [facility] | | | 0.0625 MG/ACTUAT Dry Powder | [facility] | | | Inhaler [I | | + + + + | 2024-12-23 00:00 | benzonatate 100 MG Oral | [facility] | | | Capsule | [facility] | + + + + | (no ) | nortriptyline 75 MG Oral | [facility] | | | Capsule | [facility] | + + + + | (no ) | acetaminophen 500 MG Oral | [facility] | | | Tablet | [facility] | + + + + | (no date) | ascorbic acid 1000 MG Oral | [facility] | | | Tablet | [facility] | + + + + | (no date) | montelukast 10 MG Oral | [facility] | | | Tablet | [facility] | + + + + | (no date) | ciprofloxacin 500 MG Oral | [facility] | | | Tablet [Cipro] | [facility] | + + + + | 2025-02-06 00:00 | azithromycin 250 MG Oral | [facility] | | | Tablet [Zithromax] | [facility] | + + + + | (no ) | betamethasone 0.5 MG/ML | [facility] | | | Topical Lotion | [facility] | + + + + | (no date) | atorvastatin 80 MG Oral | [facility] | | | Tablet | [facility] | + + + + | (no date) | vitamin B12 1 MG Oral | [facility] | | | Tablet | [facility] | + + + + | (no date) | famotidine 20 MG Oral | [facility] | | | Tablet | [facility] | + + + + | (no date) | ferrous sulfate 325 MG | [facility] | | | Oral Tablet | [facility] | + + + + | (no date) | furosemide 20 MG Oral | [facility] | | | Tablet | [facility] | + + + + | 2025-01-09 00:00 | levofloxacin 750 MG Oral | [facility] | | | Tablet | [facility] | + + + + | () | potassium chloride 8 MEQ | [facility] | | | Extended Release Oral | [facility] | | | Tablet | | + + + + | 2025-01-09 00:00 | prednisone 20 MG Oral | [facility] | | | Tablet | [facility] | + + + + | 2025-02-06 00:00 | prednisone 20 MG Oral | [facility] | | | Tablet | [facility] | + + + + | (no date) | prednisone 5 MG Oral | [facility] | | | Tablet | [facility] | + + + + | (no date) | terbinafine 250 MG Oral | [facility] - | | | Tablet | [facility] | + + + + | (no date) | pantoprazole 40 MG Delayed | [facility] | | | Release Oral Tablet | [facility] | + + + + | (no date) | albuterol 0.83 MG/ML | [facility] | Inhalation Solution | [facility] | + + + + | (no date) | cholecalciferol 0.05 MG | [facility] | | | Oral Tablet | [facility] | + + + + | (no date) | metformin hydrochloride | [facility] | | | 1000 MG Oral Tablet | [facility] | + + + + | (no ) | 60 ACTUAT salmeterol 0.05 | [facility] | | | MG/ACTUAT Dry Powder | [facility] | | | Inhaler [Sere | | + + + + | (no ) | 24 HR metoprolol succinate | [facility] | | | 25 MG Extended Release | [facility] | | | Oral Table | | + + + + | (no ) | polyethylene glycol 3350 | [facility] | | | [address]141 MG Powder for Oral | [facility] | | | Solution [ | | + + + + | (no date) | Lacticaseibacillus | [facility] | | | germania GG [id number] | [facility] | | | UNT Oral Capsule | | + + + + | (no date) | clonidine hydrochloride | [facility] | | | 0.1 MG Oral Tablet | [facility] | + + + + | (no date) | 120 ACTUAT fluticasone | [facility] | | | propionate 0.22 MG/ACTUAT | [facility] | | | Metered Dos | | + + + + | (no date) | alendronic acid 70 MG Oral | [facility] | | | Tablet | [facility] | + + + + | (no ) | acetaminophen 300 MG / | [facility] | | | codeine phosphate 30 MG | [facility] | | | Oral Tablet | | + + + + Problems + + + + | date | description | facility | + + + + | 2024-12-23 00:00 | Cough | [facility] | | | | [facility] | + + + + Procedures No information. Results/Labs +--------+--------+ +---------+--------+---------+ | test | date | facility | value | unit | notes | +--------+--------+ +---------+--------+---------+ + + | Result panel 1 | + + + + + +------+ + + | Serum or | 2024-12-23 | | 82 | (missing) | (missing) | | plasma | 14:00 | [facility] | | | | | alkaline | [facility] | phosphatase | | [facility] | | | | | measurement | | Hospital | | | | | (enzymatic | | | | | | | activity/vol | | | | | | | ume) | | | | | | + + + +------+ + + + + | Result panel 2 | + + + + + +-------+ + + | Serum or | 2024-12-23 | | 6.6 | (missing) | (missing) | | plasma | 14:00 | [facility] | | | | | cardiac | [facility] | | | | troponin I | | [facility] | | | | | measurement | | Hospital | | | | | by high | | | | | | | senstivity | | | | | | | method | | | | | | | (mass/volume | | | | | | | ) | | | | | | + + + +-------+ + + + + | Result panel 3 | + + + + + +--------+ + + | Blood | 2024-12-23 | | 8.24 | (missing) | (missing) | | leukocytes | 14:00 | [facility] | | | | | automated | [facility] | count | | [facility] | | | | | (number/volu | | Hospital | | | | | me) | | | | | | + + + +--------+ + + + + | Result panel 4 | + + + + + +--------+ + + | Blood | 2024-12-23 | | 4.77 | (missing) | (missing) | | erythrocytes | 14:00 | [facility] | | | | | automated | [facility] count | | [facility] | | | | | (number/volu | | Hospital | | | | | me) | | | | | | + + + +--------+ + + + + | Result panel 5 | + + + + + +--------+ + + | Blood | 2024-12-23 | | 14.0 | (missing) | (missing) | | hemoglobin | 14:00 | [facility] | | | | | measurement | | [facility] | | | | (mass/volume | | [facility] | | | | | ) | | Hospital | | | | + + + +--------+ + + + + | Result panel 6 | + + + + + +--------+ + + | Automated | 2024-12-23 | | 42.2 | (missing) | (missing) | | blood | 14:00 | [facility] | | | | | hematocrit | [facility] | | | | | [facility] | | | | + + + +--------+ + + + + | Result panel 7 | + + + + + +--------+ + + | Automated | 2024-12-23 | | 88.5 | (missing) | (missing) | | erythrocyte | 14:00 | [facility] | | | | | mean | [facility] | | corpuscular | | [facility] | | | | | volume | | Hospital | | | | + + + +--------+ + + + + | Result panel 8 | + + + + + +--------+ + + | Automated | 2024-12-23 | | 29.4 | (missing) | (missing) | | erythrocyte | 14:00 | [facility] | | | | | mean | | - [facility] | | | | | corpuscular | | [facility] | | | | | hemoglobin | | Hospital | | | | | (mass per | | | | | | | erythrocyte) | | | | | | | | | | | | | + + + +--------+ + + + + | Result panel 9 | + + + + + +--------+ + + | Automated | 2024-12-23 | | 33.2 | (missing) | (missing) | | erythrocyte | 14:00 | [facility] | | | | | mean | | - [facility] | | | | | corpuscular | | [facility] | | | | | hemoglobin | | Hospital | | | | | concentratio | | | | | | | n | | | | | | | measurement | | | | | | | (mass/volume | | | | | | | ) | | | | | | + + + +--------+ + + + + | Result panel 10 | + + + + + +-------+ + + | Automated | 2024-12-23 | | 249 | (missing) | (missing) | | blood | 14:00 | [facility] | | | | | platelet | [facility] | [facility] count | | [facility] | | | | | (count/volum | | Hospital | | | | | e) | | | | | | + + + +-------+ + + + + | Result panel 11 | + + + + + +--------+ + + | Automated | 2024-12-23 | | 53.6 | (missing) | (missing) | | blood | 14:00 | [facility] | | | | | neutrophil | | - [facility] | count as | | [facility] | | | | | percentage | | Hospital | | | | | of total | | | | | | | leukocytes | | | | | | + + + +--------+ + + + + | Result panel 12 | + + + + + +--------+ + + | Automated | 2024-12-23 | | 22.6 | (missing) | (missing) | | blood | 14:00 | [facility] | | | | | lymphocyte | | - [facility] | | [facility] | count as | | [facility] | | | | | percentage | | Hospital | | | | | ot total | | | | | | | leukocytes | | | | | | + + + +--------+ + + + + | Result panel 13 | + + + + + +--------+ + + | Automated | 2024-12-23 | | 12.6 | (missing) | (missing) | | blood | 14:00 | [facility] | | | | | monocyte | | - [facility] | | [facility] | | count as | | [facility] | | | | | percentage | | Hospital | | | | | of total | | | | | | | leukocytes | | | | | | + + + +--------+ + + + + | Result panel 14 | + + + + + +-------+ + + | Automated | 2024-12-23 | | 9.6 | (missing) | (missing) | | blood | 14:00 | [facility] | | | | | eosinophil | | - [facility] | | | | | count as | | [facility] | | | | | percentage | | Hospital | | | | | of total | | | | | | | leukocytes | | | | | | + + + +-------+ + + + + | Result panel 15 | + + + + + +-------+ + + | Automated | 2024-12-23 | | 0.8 | (missing) | (missing) | | blood | 14:00 | [facility] | | | | | basophil | | - [facility] | | [facility] | | count as | | [facility] | | | | | percentage | | Hospital | | | | | of total | | | | | | | leukocytes | | | | | | + + + +-------+ + + + + | Result panel 16 | + + + + + +-------+ + + | Serum or | 2024-12-23 | | 129 | (missing) | (missing) | | plasma | 14:00 | [facility] | | | | | glucose | | - [facility] | [facility] | measurement | | [facility] | | | | | (mass/volume | | Hospital | | | | | ) | | | | | | + + + +-------+ + + + + | Result panel 17 | + + + + + +------+ + + | Serum or | 2024-12-23 | | 15 | (missing) | (missing) | | plasma urea | 14:00 | [facility] | | | | | nitrogen | | - [facility] | [facility] | measurement | | [facility] | | | | | (mass/volume | | Hospital | | | | | ) | | | | | | + + + +------+ + + + + | Result panel 18 | + + + + + +--------+ + + | Serum or | 2024-12-23 | | 0.78 | (missing) | (missing) | | plasma | 14:00 | [facility] | | | | | creatinine | | - [facility] | measurement | | [facility] | | | | | (mass/volume | | Hospital | | | | | ) | | | | | | + + + +--------+ + + + + | Result panel 19 | + + + + + +------+ + + | Glomerular | 2024-12-23 | | 79 | (missing) | (missing) | | filtration | 14:00 | [facility] | | | | | rate/1.73 sq | | - [facility] | | | | | M.predicted | | [facility] | | | | | [Volume | | Hospital | | | | | Rate/Area] | | | | | | | inSerum, | | | | | | | Plasma or | | | | | | | Blood by | | | | | | | Creatinine-b | | | | | | | ased formula | | | | | | | (CKD-EPI | | | | | | | 2020) | | | | | | + + + +------+ + + + + | Result panel 20 | + + + + + +---------+ + + | Serum or | 2024-12-23 | | 19.23 | (missing) | (missing) | | plasma urea | 14:00 | [facility] | | | | | nitrogen/cre | | - [facility] | | | | | atinine mass | | [facility] | | | | | ratio | | Hospital | | | | + + + +---------+ + + + + | Result panel 21 | + + + + + +-------+ + + | Serum or | 2024-12-23 | | 143 | (missing) | (missing) | | plasma | 14:00 | [facility] | | | | | sodium | | - [facility] | | | | | measurement | | [facility] | | | | | (moles/volum | | Hospital | | | | | e) | | | | | | + + + +-------+ + + + + | Result panel 22 | + + + + + +-------+ + + | Serum or | 2024-12-23 | | 4.5 | (missing) | (missing) | | plasma | 14:00 | [facility] | | | | | potassium | | - [facility] | | | | | measurement | | [facility] | | | | | (moles/volum | | Hospital | | | | | e) | | | | | | + + + +-------+ + + + + | Result panel 23 | + + + + + +-------+ + + | Serum or | 2024-12-23 | | 108 | (missing) | (missing) | | plasma | 14:00 | [facility] | | | | | chloride | | - [facility] | | | | | measurement | | [facility] | | | | | (moles/volum | | Hospital | | | | | e) | | | | | | + + + +-------+ + + + + | Result panel 24 | + + + + + +------+ + + | Serum or | 2024-12-23 | | 26 | (missing) | (missing) | | plasma | 14:00 | [facility] | | | | | carbon | | - [facility] | | | | | dioxide, | | [facility] | | | | | total | | Hospital | | | | | measurement | | | | | | | (moles/volum | | | | | | | e) | | | | | | + + + +------+ + + + + | Result panel 25 | + + + + + +--------+ + + | Serum or | 2024-12-23 | | 13.5 | (missing) | (missing) | | plasma anion | 14:00 | [facility] | | | | | gap 4 | [facility] | [facility] | | | | | | Hospital | | | | + + + +--------+ + + + + | Result panel 26 | + + + + + +-------+ + + | Serum or | 2024-12-23 | | 9.8 | (missing) | (missing) | | plasma | 14:00 | [facility] | | | | | calcium | | - [facility] | | | | | measurement | | [facility] | | | | | (mass/volume | | Hospital | | | | | ) | | | | | | + + + +-------+ + + + + | Result panel 27 | + + + + + +-------+ + + | Serum or | 2024-12-23 | | 6.6 | (missing) | (missing) | | plasma | 14:00 | [facility] | | | | | protein | | - [facility] | | | | | measurement | | [facility] | | | | | (mass/volume | | Hospital | | | | | ) | | | | | | + + + +-------+ + + + + | Result panel 28 | + + + + + +-------+ + + | Serum or | 2024-12-23 | | 3.6 | (missing) | (missing) | | plasma | 14:00 | [facility] | | | | | albumin | | - [facility] | | | | | measurement | | [facility] | | | | | (mass/volume | | Hospital | | | | | ) | | | | | | + + + +-------+ + + + + | Result panel 29 | + + + + + +-------+ + + | Serum | 2024-12-23 | | 3.0 | (missing) | (missing) | | globulin | 14:00 | [facility] | | | | | measurement | | - [facility] | | | | | (mass/volume | | [facility] | | | | | ) | | Hospital | | | | + + + +-------+ + + + + | Result panel 30 | + + + + + +--------+ + + | Serum or | 2024-12-23 | | 1.20 | (missing) | (missing) | | plasma | 14:00 | [facility] | | | | | albumin/glob | | - [facility] | | | | | ulin mass | | [facility] | | | | | ratio | | Hospital | | | | + + + +--------+ + + + + | Result panel 31 | + + + + + +-------+ + + | Serum or | 2024-12-23 | | 0.3 | (missing) | (missing) | | plasma total | 14:00 | [facility] | | | | | bilirubin | | - [facility] | | | | | measurement | | [facility] | | | | | (mass/volume | | Hospital | | | | | ) | | | | | | + + + +-------+ + + + + | Result panel 32 | + + + + + +------+ + + | Serum or | 2024-12-23 | | 20 | (missing) | (missing) | | plasma | 14:00 | [facility] | | | | | aspartate | | - [facility] | | [facility] | | aminotransfe | | [facility] | | | | | rase | | Hospital | | | | | measurement | | | | | | | (enzymatic | | | | | | | activity/vol | | | | | | | ume) | | | | | | + + + +------+ + + + + | Result panel 33 | + + + + + +------+ + + | Serum or | 2024-12-23 | | 24 | (missing) | (missing) | | plasma | 14:00 | [facility] | | | | | alanine | | - [facility] | | | | | aminotransfe | | [facility] | | | | | rase | | Hospital | | | | | measurement | | | | | | | (enzymatic | | | | | | | activity/vol | | | | | | | ume) | | | | | | + + + +------+ + + + + | Result panel 34 | + + + + + +---------+ + + | Blood | 2025-01-09 | | 12.13 | (missing) | (missing) | | leukocytes | 12:30 | [facility] | | | | | automated | | - [facility] | | | | | count | | [facility] | | | | | (number/volu | | Hospital | | | | | me) | | | | | | + + + +---------+ + + + + | Result panel 35 | + + + + + +--------+ + + | Blood | 2025-01-09 | | 4.00 | (missing) | (missing) | | erythrocytes | 12:30 | [facility] | | | | | automated | | - [facility] | | | | | count | | [facility] | | | | | (number/volu | | Hospital | | | | | me) | | | | | | + + + +--------+ + + + + | Result panel 36 | + + + + + +--------+ + + | Blood | 2025-01-09 | | 11.9 | (missing) | (missing) | | hemoglobin | 12:30 | [facility] | | | | | measurement | | - [facility] | | | | | (mass/volume | | [facility] | | | | | ) | | Hospital | | | | + + + +--------+ + + + + | Result panel 37 | + + + + + +--------+ + + | Automated | 2025-01-09 | | 35.9 | (missing) | (missing) | | blood | 12:30 | [facility] | | | | | hematocrit | | - [facility] | | | | | | [facility] | | | | | | | [facility] | | | | + + + +--------+ + + + + | Result panel 38 | + + + + + +--------+ + + | Automated | 2025-01-09 | | 89.8 | (missing) | (missing) | | erythrocyte | 12:30 | [facility] | | | | | mean | | - [facility] | | | | | corpuscular | | [facility] | | | | | volume | | Hospital | | | | + + + +--------+ + + + + | Result panel 39 | + + + + + +--------+ + + | Automated | 2025-01-09 | | 29.8 | (missing) | (missing) | | erythrocyte | 12:30 | [facility] | | | | | mean | | - [facility] | | | | | corpuscular | | [facility] | | | | | hemoglobin | | Hospital | | | | | (mass per | | | | | | | erythrocyte) | | | | | | | | | | | | | + + + +--------+ + + + + | Result panel 40 | + + + + + +--------+ + + | Automated | 2025-01-09 | | 33.1 | (missing) | (missing) | | erythrocyte | 12:30 | [facility] | | | | | mean | | - [facility] | | | | | corpuscular | | [facility] | | | | | hemoglobin | | Hospital | | | | | concentratio | | | | | | | n | | | | | | | measurement | | | | | | | (mass/volume | | | | | | | ) | | | | | | + + + +--------+ + + + + | Result panel 41 | + + + + + +-------+ + + | Automated | 2025-01-09 | | 223 | (missing) | (missing) | | blood | 12:30 | [facility] | | | | | platelet | | - [facility] | | | | | count | | [facility] | | | | | (count/volum | | Hospital | | | | | e) | | | | | | + + + +-------+ + + + + | Result panel 42 | + + + + + +--------+ + + | Automated | 2025-01-09 | | 62.7 | (missing) | (missing) | | blood | 12:30 | [facility] | | | | | neutrophil | | - [facility] | | | | | count as | | [facility] | | | | | percentage | | Hospital | | | | | of total | | | | | | | leukocytes | | | | | | + + + +--------+ + + + + | Result panel 43 | + + + + + +--------+ + + | Automated | 2025-01-09 | | 11.3 | (missing) | (missing) | | blood | 12:30 | [facility] | | | | | lymphocyte | | - [facility] | | | | | count as | | [facility] | | | | | percentage | | Hospital | | | | | ot total | | | | | | | leukocytes | | | | | | + + + +--------+ + + + + | Result panel 44 | + + + + + +-------+ + + | Automated | 2025-01-09 | | 9.6 | (missing) | (missing) | | blood | 12:30 | [facility] | | | | | monocyte | | - [facility] | | | | | count as | | [facility] | | | | | percentage | | Hospital | | | | | of total | | | | | | | leukocytes | | | | | | + + + +-------+ + + + + | Result panel 45 | + + + + + +--------+ + + | Automated | 2025-01-09 | | 15.1 | (missing) | (missing) | | blood | 12:30 | [facility] | | | | | eosinophil | | - [facility] | | | | | count as | | [facility] | | | | | percentage | | Hospital | | | | | of total | | | | | | | leukocytes | | | | | | + + + +--------+ + + + + | Result panel 46 | + + + + + +-------+ + + | Automated | 2025-01-09 | | 0.6 | (missing) | (missing) | | blood | 12:30 | [facility] | | | | | basophil | [facility] count as | [facility] | | | | | percentage | | Hospital | | | | | of total | | | | | | | leukocytes | | | | | | + + + +-------+ + + + + | Result panel 47 | + + + + + +-------+ + + | Serum or | 2025-01-09 | | 124 | (missing) | (missing) | | plasma | 12:30 | [facility] | | | | | glucose | | - [facility] | [facility] | measurement | | [facility] | | | | | (mass/volume | | Hospital | | | | | ) | | | | | | + + + +-------+ + + + + | Result panel 48 | + + + + + +------+ + + | Serum or | 2025-01-09 | | 15 | (missing) | (missing) | | plasma urea | 12:30 | [facility] | | | | | nitrogen | | - [facility] | measurement | | [facility] | | | | | (mass/volume | | Hospital | | | | | ) | | | | | | + + + +------+ + + + + | Result panel 49 | + + + + + +--------+ + + | Serum or | 2025-01-09 | | 0.68 | (missing) | (missing) | | plasma | 12:30 | [facility] | | | | | creatinine | | - [facility] | [facility] | measurement | | [facility] | | | | | (mass/volume | | Hospital | | | | | ) | | | | | | + + + +--------+ + + + + | Result panel 50 | + + + + + +------+ + + | Glomerular | 2025-01-09 | | 91 | (missing) | (missing) | | filtration | 12:30 | [facility] | | | | | rate/1.73 sq | [facility] - [facility] | | [facility] | | M.predicted | | [facility] | | | | | [Volume | | Hospital | | | | | Rate/Area] | | | | | | | inSerum, | | | | | | | Plasma or | | | | | | | Blood by | | | | | | | Creatinine-b | | | | | | | ased formula | | | | | | | (CKD-EPI | | | | | | | 2020) | | | | | | + + + +------+ + + + + | Result panel 51 | + + + + + +---------+ + + | Serum or | 2025-01-09 | | 22.05 | (missing) | (missing) | | plasma urea | 12:30 | [facility] | | | | | nitrogen/cre | | - [facility] | | | | | atinine mass | | [facility] | | | | | ratio | | Hospital | | | | + + + +---------+ + + + + | Result panel 52 | + + + + + +-------+ + + | Serum or | 2025-01-09 | | 143 | (missing) | (missing) | | plasma | 12:30 | [facility] | | | | | sodium | | - [facility] | | [facility] | | measurement | | [facility] | | | | | (moles/volum | | Hospital | | | | | e) | | | | | | + + + +-------+ + + + + | Result panel 53 | + + + + + +-------+ + + | Serum or | 2025-01-09 | | 4.1 | (missing) | (missing) | | plasma | 12:30 | [facility] | | | | | potassium | | - [facility] | [facility] | measurement | | [facility] | | | | | (moles/volum | | Hospital | | | | | e) | | | | | | + + + +-------+ + + + + | Result panel 54 | + + + + + +-------+ + + | Serum or | 2025-01-09 | | 109 | (missing) | (missing) | | plasma | 12:30 | [facility] | | | | | chloride | | - [facility] | [facility] | measurement | | [facility] | | | | | (moles/volum | | Hospital | | | | | e) | | | | | | + + + +-------+ + + + + | Result panel 55 | + + + + + +------+ + + | Serum or | 2025-01-09 | | 25 | (missing) | (missing) | | plasma | 12:30 | [facility] | | | | | carbon | | - [facility] | | [facility] | | dioxide, | | [facility] | | | | | total | | Hospital | | | | | measurement | | | | | | | (moles/volum | | | | | | | e) | | | | | | + + + +------+ + + + + | Result panel 56 | + + + + + +--------+ + + | Serum or | 2025-01-09 | | 13.1 | (missing) | (missing) | | plasma anion | 12:30 | [facility] | | | | | gap 4 | [facility] | | | | | | [facility] | | | | + + + +--------+ + + + + | Result panel 57 | + + + + + +-------+ + + | Serum or | 2025-01-09 | | 9.1 | (missing) | (missing) | | plasma | 12:30 | [facility] | | | | | calcium | | - [facility] | measurement | | [facility] | | | | | (mass/volume | | Hospital | | | | | ) | | | | | | + + + +-------+ + + + + | Result panel 58 | + + + + + +-------+ + + | Serum or | 2025-01-09 | | 1.3 | (missing) | (missing) | | plasma | 12:30 | [facility] | | | | | magnesium | | - [facility] | measurement | | [facility] | | | | | (mass/volume | | Hospital | | | | | ) | | | | | | + + + +-------+ + + + + | Result panel 59 | + + + + + +-------+ + + | Serum or | 2025-01-09 | | 6.0 | (missing) | (missing) | | plasma | 12:30 | [facility] | | | | | protein | | - [facility] | [facility] | measurement | | [facility] | | | | | (mass/volume | | Hospital | | | | | ) | | | | | | + + + +-------+ + + + + | Result panel 60 | + + + + + +-------+ + + | Serum or | 2025-01-09 | | 2.9 | (missing) | (missing) | | plasma | 12:30 | [facility] | | | | | albumin | | - [facility] | [facility] | measurement | | [facility] | | | | | (mass/volume | | Hospital | | | | | ) | | | | | | + + + +-------+ + + + + | Result panel 61 | + + + + + +-------+ + + | Serum | 2025-01-09 | | 3.1 | (missing) | (missing) | | globulin | 12:30 | [facility] | | | | | measurement | | - [facility] | | [facility] | (mass/volume | | [facility] | | | | | ) | | Hospital | | | | + + + +-------+ + + + + | Result panel 62 | + + + + + +--------+ + + | Serum or | 2025-01-09 | | 0.94 | (missing) | (missing) | | plasma | 12:30 | [facility] | | | | | albumin/glob | | - [facility] | [facility] | ulin mass | | [facility] | | | | | ratio | | Hospital | | | | + + + +--------+ + + + + | Result panel 63 | + + + + + +-------+ + + | Serum or | 2025-01-09 | | 0.3 | (missing) | (missing) | | plasma total | 12:30 | [facility] | | | | | bilirubin | | - [facility] | measurement | | [facility] | | | | | (mass/volume | | Hospital | | | | | ) | | | | | | + + + +-------+ + + + + | Result panel 64 | + + + + + +------+ + + | Serum or | 2025-01-09 | | 16 | (missing) | (missing) | | plasma | 12:30 | [facility] | | | | | aspartate | | - [facility] | | | | | aminotransfe | | [facility] | | | | | rase | | Hospital | | | | | measurement | | | | | | | (enzymatic | | | | | | | activity/vol | | | | | | | ume) | | | | | | + + + +------+ + + + + | Result panel 65 | + + + + + +------+ + + | Serum or | 2025-01-09 | | 15 | (missing) | (missing) | | plasma | 12:30 | [facility] | | | | | alanine | | - [facility] | | | | | aminotransfe | | [facility] | | | | | rase | | Hospital | | | | | measurement | | | | | | | (enzymatic | | | | | | | activity/vol | | | | | | | ume) | | | | | | + + + +------+ + + + + | Result panel 66 | + + + + + +------+ + + | Serum or | 2025-01-09 | | 83 | (missing) | (missing) | | plasma | 12:30 | [facility] | | | | | alkaline | | - [facility] | | | | | phosphatase | | [facility] | | | | | measurement | | Hospital | | | | | (enzymatic | | | | | | | activity/vol | | | | | | | ume) | | | | | | + + + +------+ + + + + | Result panel 67 | + + + + + +-------+ + + | Serum or | 2025-01-09 | | 5.0 | (missing) | (missing) | | plasma | 12:30 | [facility] | | | | | cardiac | | - [facility] | | | | | troponin I | | [facility] | | | | | measurement | | Hospital | | | | | by high | | | | | | | senstivity | | | | | | | method | | | | | | | (mass/volume | | | | | | | ) | | | | | | + + + +-------+ + + + + | Result panel 68 | + + + + + +--------+ + + | Blood | 2025-02-06 | | 9.55 | (missing) | (missing) | | leukocytes | 17:57 | [facility] | | | | | automated | | - [facility] | | [facility] | count | | [facility] | | | | | (number/volu | | Hospital | | | | | me) | | | | | | + + + +--------+ + + + + | Result panel 69 | + + + + + +--------+ + + | Automated | 2025-02-06 | | 16.3 | (missing) | (missing) | | blood | 17:57 | [facility] | | | | | lymphocyte | | - [facility] | | [facility] | count as | | [facility] | | | | | percentage | | Hospital | | | | | ot total | | | | | | | leukocytes | | | | | | + + + +--------+ + + + + | Result panel 70 | + + + + + +--------+ + + | Automated | 2025-02-06 | | 10.8 | (missing) | (missing) | | blood | 17:57 | [facility] | | | | | monocyte | | - [facility] | | [facility] | count as | | [facility] | | | | | percentage | | Hospital | | | | | of total | | | | | | | leukocytes | | | | | | + + + +--------+ + + + + | Result panel 71 | + + + + + +--------+ + + | Automated | 2025-02-06 | | 19.7 | (missing) | (missing) | | blood | 17:57 | [facility] | | | | | eosinophil | | - [facility] | count as | | [facility] | | | | | percentage | | Hospital | | | | | of total | | | | | | | leukocytes | | | | | | + + + +--------+ + + + + | Result panel 72 | + + + + + +-------+ + + | Automated | 2025-02-06 | | 0.5 | (missing) | (missing) | | blood | 17:57 | [facility] | | | | | basophil | | - [facility] | [facility] | count as | | [facility] | | | | | percentage | | Hospital | | | | | of total | | | | | | | leukocytes | | | | | | + + + +-------+ + + + + | Result panel 73 | + + + + + +-------+ + + | Serum or | 2025-02-06 | | 107 | (missing) | (missing) | | plasma | 17:57 | [facility] | | | | | glucose | | - [facility] | | [facility] | measurement | | [facility] | | | | | (mass/volume | | Hospital | | | | | ) | | | | | | + + + +-------+ + + + + | Result panel 74 | + + + + + +------+ + + | Serum or | 2025-02-06 | | 14 | (missing) | (missing) | | plasma urea | 17:57 | [facility] | | | | | nitrogen | | - [facility] | | [facility] | measurement | | [facility] | | | | | (mass/volume | | Hospital | | | | | ) | | | | | | + + + +------+ + + + + | Result panel 75 | + + + + + +--------+ + + | Serum or | 2025-02-06 | | 0.86 | (missing) | (missing) | | plasma | 17:57 | [facility] | | | | | creatinine | | - [facility] | | [facility] | measurement | | [facility] | | | | | (mass/volume | | Hospital | | | | | ) | | | | | | + + + +--------+ + + + + | Result panel 76 | + + + + + +------+ + + | Glomerular | 2025-02-06 | | 70 | (missing) | (missing) | | filtration | 17:57 | [facility] | | | | | rate/1.73 sq | | - [facility] | | | | | M.predicted | | [facility] | | | | | [Volume | | Hospital | | | | | Rate/Area] | | | | | | | inSerum, | | | | | | | Plasma or | | | | | | | Blood by | | | | | | | Creatinine-b | | | | | | | ased formula | | | | | | | (CKD-EPI | | | | | | | 2020) | | | | | | + + + +------+ + + + + | Result panel 77 | + + + + + +---------+ + + | Serum or | 2025-02-06 | | 16.27 | (missing) | (missing) | | plasma urea | 17:57 | [facility] | | | | | nitrogen/cre | | - [facility] | | | | | atinine mass | | [facility] | | | | | ratio | | Hospital | | | | + + + +---------+ + + + + | Result panel 78 | + + + + + +-------+ + + | Serum or | 2025-02-06 | | 140 | (missing) | (missing) | | plasma | 17:57 | [facility] | | | | | sodium | | - [facility] | | [facility] | measurement | | [facility] | | | | | (moles/volum | | Hospital | | | | | e) | | | | | | + + + +-------+ + + + + | Result panel 79 | + + + + + +--------+ + + | Blood | 2025-02-06 | | 4.34 | (missing) | (missing) | | erythrocytes | 17:57 | [facility] | | | | | automated | | - [facility] | [facility] | count | | [facility] | | | | | (number/volu | | Hospital | | | | | me) | | | | | | + + + +--------+ + + + + | Result panel 80 | + + + + + +-------+ + + | Serum or | 2025-02-06 | | 4.0 | (missing) | (missing) | | plasma | 17:57 | [facility] | | | | | potassium | | - [facility] | | [facility] | | measurement | | [facility] | | | | | (moles/volum | | Hospital | | | | | e) | | | | | | + + + +-------+ + + + + | Result panel 81 | + + + + + +-------+ + + | Serum or | 2025-02-06 | | 103 | (missing) | (missing) | | plasma | 17:57 | [facility] | | | | | chloride | | - [facility] | | [facility] | | measurement | | [facility] | | | | | (moles/volum | | Hospital | | | | | e) | | | | | | + + + +-------+ + + + + | Result panel 82 | + + + + + +------+ + + | Serum or | 2025-02-06 | | 29 | (missing) | (missing) | | plasma | 17:57 | [facility] | | | | | carbon | | - [facility] | | | | | dioxide, | | [facility] | | | | | total | | Hospital | | | | | measurement | | | | | | | (moles/volum | | | | | | | e) | | | | | | + + + +------+ + + + + | Result panel 83 | + + + + + +--------+ + + | Serum or | 2025-02-06 | | 12.0 | (missing) | (missing) | | plasma anion | 17:57 | [facility] | | | | | gap 4 | [facility] | [facility] | | | | | | [facility] | | | | + + + +--------+ + + + + | Result panel 84 | + + + + + +-------+ + + | Serum or | 2025-02-06 | | 8.7 | (missing) | (missing) | | plasma | 17:57 | [facility] | | | | | calcium | | - [facility] | | [facility] | measurement | | [facility] | | | | | (mass/volume | | Hospital | | | | | ) | | | | | | + + + +-------+ + + + + | Result panel 85 | + + + + + +-------+ + + | Serum or | 2025-02-06 | | 1.4 | (missing) | (missing) | | plasma | 17:57 | [facility] | | | | | magnesium | | - [facility] | | [facility] | measurement | | [facility] | | | | | (mass/volume | | Hospital | | | | | ) | | | | | | + + + +-------+ + + + + | Result panel 86 | + + + + + +-------+ + + | Serum or | 2025-02-06 | | 6.7 | (missing) | (missing) | | plasma | 17:57 | [facility] | | | | | protein | | - [facility] | | [facility] | measurement | | [facility] | | | | | (mass/volume | | Hospital | | | | | ) | | | | | | + + + +-------+ + + + + | Result panel 87 | + + + + + +-------+ + + | Serum or | 2025-02-06 | | 3.3 | (missing) | (missing) | | plasma | 17:57 | [facility] | | | | | albumin | | - [facility] | | [facility] | | measurement | | [facility] | | | | | (mass/volume | | Hospital | | | | | ) | | | | | | + + + +-------+ + + + + | Result panel 88 | + + + + + +-------+ + + | Serum | 2025-02-06 | | 3.4 | (missing) | (missing) | | globulin | 17:57 | [facility] | | | | | measurement | | - [facility] | | | | | (mass/volume | | [facility] | | | | | ) | | Hospital | | | | + + + +-------+ + + + + | Result panel 89 | + + + + + +--------+ + + | Serum or | 2025-02-06 | | 0.97 | (missing) | (missing) | | plasma | 17:57 | [facility] | | | | | albumin/glob | | - [facility] | | | | | ulin mass | | [facility] | | | | | ratio | | Hospital | | | | + + + +--------+ + + + + | Result panel 90 | + + + + + +--------+ + + | Blood | 2025-02-06 | | 12.8 | (missing) | (missing) | | hemoglobin | 17:57 | [facility] | | | | | measurement | | - [facility] | | | | | (mass/volume | | [facility] | | | | | ) | | Hospital | | | | + + + +--------+ + + + + | Result panel 91 | + + + + + +-------+ + + | Serum or | 2025-02-06 | | 0.3 | (missing) | (missing) | | plasma total | 17:57 | [facility] | | | | | bilirubin | | - [facility] | | [facility] | | measurement | | [facility] | | | | | (mass/volume | | Hospital | | | | | ) | | | | | | + + + +-------+ + + + + | Result panel 92 | + + + + + +------+ + + | Serum or | 2025-02-06 | | 14 | (missing) | (missing) | | plasma | 17:57 | [facility] | | | | | aspartate | | - [facility] | | | | | aminotransfe | | [facility] | | | | | rase | | Hospital | | | | | measurement | | | | | | | (enzymatic | | | | | | | activity/vol | | | | | | | ume) | | | | | | + + + +------+ + + + + | Result panel 93 | + + + + + +------+ + + | Serum or | 2025-02-06 | | 22 | (missing) | (missing) | | plasma | 17:57 | [facility] | | | | | alanine | | - [facility] | | | | | aminotransfe | | [facility] | | | | | rase | | Hospital | | | | | measurement | | | | | | | (enzymatic | | | | | | | activity/vol | | | | | | | ume) | | | | | | + + + +------+ + + + + | Result panel 94 | + + + + + +------+ + + | Serum or | 2025-02-06 | | 96 | (missing) | (missing) | | plasma | 17:57 | [facility] | | | | | alkaline | | - [facility] | | | | | phosphatase | | [facility] | | | | | measurement | | Hospital | | | | | (enzymatic | | | | | | | activity/vol | | | | | | | ume) | | | | | | + + + +------+ + + + + | Result panel 95 | + + + + + +-------+ + + | Serum or | 2025-02-06 | | 6.2 | (missing) | (missing) | | plasma | 17:57 | [facility] | | | | | cardiac | | - [facility] | | | | | troponin I | | [facility] | | | | | measurement | | Hospital | | | | | by high | | | | | | | senstivity | | | | | | | method | | | | | | | (mass/volume | | | | | | | ) | | | | | | + + + +-------+ + + + + | Result panel 96 | + + + + + +--------+ + + | Automated | 2025-02-06 | | 38.9 | (missing) | (missing) | | blood | 17:57 | [facility] | | | | | hematocrit | [facility] - [facility] | | [facility] | | | | | | [facility] | | | | + + + +--------+ + + + + | Result panel 97 | + + + + + +--------+ + + | Automated | 2025-02-06 | | 89.6 | (missing) | (missing) | | erythrocyte | 17:57 | [facility] | | | | | mean | | - [facility] | | | | | corpuscular | | [facility] | | | | | volume | | Hospital | | | | + + + +--------+ + + + + | Result panel 98 | + + + + + +--------+ + + | Automated | 2025-02-06 | | 29.5 | (missing) | (missing) | | erythrocyte | 17:57 | [facility] | | | | | mean | | - [facility] | | | | | corpuscular | | [facility] | | | | | hemoglobin | | Hospital | | | | | (mass per | | | | | | | erythrocyte) | | | | | | | | | | | | | + + + +--------+ + + + + | Result panel 99 | + + + + + +--------+ + + | Automated | 2025-02-06 | | 32.9 | (missing) | (missing) | | erythrocyte | 17:57 | [facility] | | | | | mean | | - [facility] | | | | | corpuscular | | [facility] | | | | | hemoglobin | | Hospital | | | | | concentratio | | | | | | | n | | | | | | | measurement | | | | | | | (mass/volume | | | | | | | ) | | | | | | + + + +--------+ + + + + | Result panel 100 | + + + + + +-------+ + + | Automated | 2025-02-06 | | 253 | (missing) | (missing) | | blood | 17:57 | [facility] | | | | | platelet | | - [facility] | [facility] | count | | [facility] | | | | | (count/volum | | Hospital | | | | | e) | | | | | | + + + +-------+ + + + + | Result panel 101 | + + + + + +--------+ + + | Automated | 2025-02-06 | | 51.5 | (missing) | (missing) | | blood | 17:57 | [facility] | | | | | neutrophil | | - [facility] | | | | | count as | | [facility] | | | | | percentage | | Hospital | | | | | of total | | | | | | | leukocytes | | | | | | + + + +--------+ + + Social History + + + + | date | description | facility | + + + + | (no date) | Never smoker | [facility] | | | | [facility] | + + + + Vital Signs No information."
--- OUTSIDE RECORDS SUMMARY | ~2025-03-11 | XMS | Continuity of Care Document ---
Demographics + + + | Address | [address] [address] | | | [place] [address] | + + + | Preferred Language | Unknown | + + + | Marital Status | | + + + | Spiritism Affiliation | Unknown | + + + | Race | White | + + + | Ethnic Group | Not or | + + + Author + + + | Author | [place] | + + + | Organization | [place] | + + + | Address | [address] | | | [place] [address] | + + + | Phone | | + + + Care Team Providers + + + + | Care Electronic Warfare Officer Name | Role | Phone | + [...] severity) | | 00:00 | base | [facility] | | | | | | Hospital | | | + + + + + + Encounters No information. Functional Status No information. Immunizations + + + + | date | description | facility | + + + + | (no date) | No vaccine administered | [facility] | | | | [facility] | + + + + Medications + + + + | date | description | facility | + + + + | (no date) | cetirizine hydrochloride | [facility] | | | 10 MG Oral Tablet | [facility] | + + + + | (no date) | diphenhydramine | [facility] | | | hydrochloride 25 MG Oral | [facility] | | | Capsule | | + + + + | (no date) | triamcinolone acetonide | [facility] | | | 0.001 MG/MG Topical | [facility] | | | Ointment | | + + + + | (no date) | triamcinolone acetonide | [facility] | | | 0.005 MG/MG Topical | [facility] | | | Ointment | | + + + + | (no date) | roflumilast 0.5 MG Oral | [facility] | | | Tablet [Daliresp] | [facility] | + + + + | (no date) | linagliptin 5 MG Oral | [facility] | | | Tablet [Tradjenta] | [facility] | + + + + | (no ) | 120 ACTUAT albuterol 0.1 | [facility] | | | MG/ACTUAT / ipratropium | [facility] | | | bromide 0.0 | | + + + + | (no ) | albuterol 0.833 MG/ML / | [facility] | | | ipratropium bromide 0.167 | [facility] | | | MG/ML Inha | | + + + + | (no ) | 30 ACTUAT fluticasone | [facility] | | | furoate 0.2 MG/ACTUAT Dry | [facility] | | | Powder Inhal | | + + + + | (no ) | 7 ACTUAT umeclidinium | [facility] | | | 0.0625 MG/ACTUAT Dry Powder | [facility] | | | Inhaler [I | | + + + + | 2024-12-23 00:00 | benzonatate 100 MG Oral | [facility] | | | Capsule | [facility] | + + + + | (no ) | nortriptyline 75 MG Oral | [facility] | | | Capsule | [facility] | + + + + | (no ) | acetaminophen 500 MG Oral | [facility] | | | Tablet | [facility] | + + + + | (no date) | ascorbic acid 1000 MG Oral | [facility] | | | Tablet | [facility] | + + + + | (no date) | montelukast 10 MG Oral | [facility] | | | Tablet | [facility] | + + + + | (no date) | ciprofloxacin 500 MG Oral | [facility] | | | Tablet [Cipro] | [facility] | + + + + | 2025-02-06 00:00 | azithromycin 250 MG Oral | [facility] | | | Tablet [Zithromax] | [facility] | + + + + | (no ) | betamethasone 0.5 MG/ML | [facility] | | | Topical Lotion | [facility] | + + + + | (no date) | atorvastatin 80 MG Oral | [facility] | | | Tablet | [facility] | + + + + | (no date) | vitamin B12 1 MG Oral | [facility] | | | Tablet | [facility] | + + + + | (no date) | famotidine 20 MG Oral | [facility] | | | Tablet | [facility] | + + + + | (no date) | ferrous sulfate 325 MG | [facility] | | | Oral Tablet | [facility] | + + + + | (no date) | furosemide 20 MG Oral | [facility] | | | Tablet | [facility] | + + + + | 2025-01-09 00:00 | levofloxacin 750 MG Oral | [facility] | | | Tablet | [facility] | + + + + | () | potassium chloride 8 MEQ | [facility] | | | Extended Release Oral | [facility] | | | Tablet | | + + + + | 2025-01-09 00:00 | prednisone 20 MG Oral | [facility] | | | Tablet | [facility] | + + + + | 2025-02-06 00:00 | prednisone 20 MG Oral | [facility] | | | Tablet | [facility] | + + + + | (no date) | prednisone 5 MG Oral | [facility] | | | Tablet | [facility] | + + + + | (no date) | terbinafine 250 MG Oral | [facility] - | | | Tablet | [facility] | + + + + | (no date) | pantoprazole 40 MG Delayed | [facility] - | | | Release Oral Tablet | [facility] | + + + + | (no date) | albuterol 0.83 MG/ML | [facility] | Inhal[facility] | [facility] | + + + + | (no date) | cholecalciferol 0.05 MG | [facility] | | | Oral Tablet | [facility] | + + + + | (no date) | metformin hydrochloride | [facility] | | | 1000 MG Oral Tablet | [facility] | + + + + | (no ) | 60 ACTUAT salmeterol 0.05 | [facility] | | | MG/ACTUAT Dry Powder | [facility] | | | Inhaler [Sere | | + + + + | (no ) | 24 HR metoprolol succinate | [facility] | | | 25 MG Extended Release | [facility] | | | Oral Table | | + + + + | (no ) | polyethylene glycol 3350 | [facility] | | | [address] MG Powder for Oral | [facility] | | | Solution [ | | + + + + | (no date) | Lacticaseibacillus | [facility] | | | germania GG [id number] | [facility] | | | UNT Oral Capsule | | + + + + | (no date) | clonidine hydrochloride | [facility] | | | 0.1 MG Oral Tablet | [facility] | + + + + | (no date) | 120 ACTUAT fluticasone | [facility] | | | propionate 0.22 MG/ACTUAT | [facility] | | | Metered Dos | | + + + + | (no date) | alendronic acid 70 MG Oral | [facility] | | | Tablet | [facility] | + + + + | (no ) | acetaminophen 300 MG / | [facility] | | | codeine phosphate 30 MG | [facility] | | | Oral Tablet | | + + + + Problems + + + + | date | description | facility | + + + + | 2024-12-23 00:00 | Cough | [facility] | | | | [facility] | + + + + Procedures No [...] | (no date) | [facility] smoker | [facility] | | | | [facility] | + + + + Vital Signs No information."
[2025-03-11] MEDS ORDERED: ALBUTEROL SULFATE 0.5% 2.5 MG/0.5 ML VIAL INH ONE (18:45)
--- OUTSIDE RECORDS SUMMARY | 2025-03-11 18:45 | XMS ---
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 E.D. VISIT COUNT (12 MO.) 8 [facility] [place] TOTAL 9 NOTE: Visits indicate total known visits. ED/UCC VISIT TRACKING (12 MO.) 03/11/2025 18:41 [facility] [place] TYPE: Emergency COMPLAINT: - SHORTNESS OF BREATH 02/06/2025 17:30 [facility] [place] TYPE: Emergency COMPLAINT: - COUGH,CAN NOT BREATH DIAGNOSES: - Allergy status to analgesic agent - Allergy status to other antibiotic agents - Allergy status to other drugs, medicaments and biological substances - Allergy status to penicillin - Allergy status to sulfonamides - Chronic obstructive pulmonary disease with (acute) exacerbation - Dependence on supplemental oxygen - Essential (primary) hypertension - Gastro-esophageal reflux disease without esophagitis - longterm (current) use of oral hypoglycemic drugs - Other group home (current) drug therapy - Pure hypercholesterolemia, unspecified - Shortness of breath - Type 2 diabetes mellitus without complications 01/09/2025 11:46 [facility] [place] TYPE: Emergency COMPLAINT: - SHORTNESS OF BREATH DIAGNOSES: - Allergy status to other antibiotic agents - Allergy status to other drugs, medicaments and biological substances - Allergy status to penicillin - Allergy status to sulfonamides - Chronic obstructive pulmonary disease with (acute) exacerbation - Cough, unspecified - Essential (primary) hypertension - 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 - Other rodent exterminator (current) drug therapy - Type 2 diabetes [...] esophagitis - Hormone replacement therapy - Other group home (current) drug therapy - Other specified chronic [...] disease, unspecified - Essential (primary) hypertension - rodent exterminator (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) use of inhaled steroids - longterm (current) use of systemic steroids - Other rodent exterminator (current) drug therapy - Pneumonia, unspecified organism [...] diabetes mellitus without complications [facility] DIAGNOSES: - Hypomagnesemia - Tachycardia, [...] respiratory infection - Essential (primary) hypertension - 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
[2025-03-11 18:50] LABS: BASOPHILS 0.6 % (0.1-1.2); EOSINOPHILS 7.8 % (0.7-5.8); LYMPHOCYTES 19.3 % (19.3-51.7); MCH 28.7 PG (25.6-32.2); MCHC 32.3 g/dL (32.2-35.5); MCV 89.0 fL (79.4-94.8); MONOCYTES 9.3 % (4.7-12.5); NEUTROPHILS 61.7 % (34.0-71.1); RBC 4.28 M/uL (3.93-5.22)
[2025-03-11 19:12] LABS: ALT (SGPT) 19.0 U/L (14-59); AST (SGOT) 15.0 U/L (15-37); GLOMERULAR FILTRATION RATE,EST 78.0 mL/min (>60); PROTEIN, TOTAL 6.7 g/dL (6.4-8.2); UREA NITROGEN 19.0 mg/dL (7-18)
[2025-03-11] MEDS ORDERED: ALBUTEROL/IPRATROPIUM 3 ML NEB INH ONE (23:15)
[2025-03-11 23:44] LABS: LACTIC ACID, BLOOD 7.3 mmol/L (0.4-2.0)
[2025-03-11] MEDS ORDERED: LACTATED RINGER'S 1,000 ML IV PRN (23:45)
[2025-03-12] VITALS (10 sets, daily range): BP systolic 102–127; BP diastolic 62–94
[2025-03-12 00:03] LABS: INR 0.92 (0.80-1.30); PROTIME 11.7 Sec (11.2-14.2)
[2025-03-12 00:21] LABS: BLOOD/HGB, URINE NEGATIVE (Negative); KETONE, URINE TRACE (Negative); LEUK ESTERASE, URINE NEGATIVE (negative); NITRITE, URINE NEGATIVE (negative)
[2025-03-12] MEDS ORDERED: ACETAMINOPHEN 500 MG TAB PO ONE (02:00)
[2025-03-12] MEDS ORDERED: LACTATED RINGER'S 1,000 ML IV ONE (02:30)
[2025-03-12] MEDS ORDERED: ACETAMINOPHEN 325 MG TAB PO PRN ×2 (02:45→11:30)
[2025-03-12] MEDS ORDERED: LACTATED RINGER'S 1,000 ML IV SCH (02:45)
[2025-03-12] MEDS ORDERED: ALBUTEROL/IPRATROPIUM 3 ML NEB INH PRN (03:00)
[2025-03-12] MEDS ORDERED: ALBUTEROL SULFATE 0.042% 1.25 MG/3 ML VIAL INH PRN (03:15)
[2025-03-12] MEDS ORDERED: ALBUTEROL SULFATE 0.5% 2.5 MG/0.5 ML VIAL INH PRN (03:30)
[2025-03-12] MEDS ORDERED: ALBUTEROL SULFATE 0.083% 3 ML VIAL INH PRN (03:30)
[2025-03-12 03:38] LABS: LACTIC ACID, BLOOD 11.0 mmol/L (0.4-2.0)
--- NOTE | 2025-03-12 03:45 | NUR ---
RECIEVED REPORT FROM ED, TRANSFERRED PT TO RM 119. PTS ADMIT ASSESSMENT COMPLETE, VSS. PT REQUESTING NEB TREATMENT, RT NOTIFIED. NO OTHER NEEDS AT THIS TIME, TELE ON, CPOX ON, CALL LIGHT WITHIN REACH.
--- NOTE | 2025-03-12 04:15 | NUR ---
DR. JIM NOTIFIED OF CRITICAL LAB, LACTIC IS 11. NO NEW ORDERS AT THIS TIME. REDRAW AT 0600.
--- NOTE | 2025-03-12 04:17 | NUR ---
RT CONTACTED PER PT REQUEST OF KRISTIE MELO
--- NOTE | 2025-03-12 05:07 | NUR ---
PT LAYING IN BED WATCHING TV, REPORTS NO NEEDS AT THIS TIME, CALL LIGHT WITHIN REACH.
[2025-03-12 05:52] LABS: BASOPHILS 0.2 % (0.1-1.2); EOSINOPHILS 0.2 % (0.7-5.8); LYMPHOCYTES 10.0 % (19.3-51.7); MCH 29.7 PG (25.6-32.2); MCHC 32.7 g/dL (32.2-35.5); MCV 90.8 fL (79.4-94.8); MONOCYTES 3.1 % (4.7-12.5); NEUTROPHILS 85.6 % (34.0-71.1); RBC 3.81 M/uL (3.93-5.22)
--- NOTE | 2025-03-12 06:20 | NUR ---
PT LAYING IN BED, SPIRITS MODEL AT BEDSIDE. REPORTS NO NEEDS AT THIS TIME, CALL LIGHT WITHIN REACH.
[2025-03-12 06:49] LABS: AST (SGOT) 21.0 U/L (15-37); GLOMERULAR FILTRATION RATE,EST 53.0 mL/min (>60); PROTEIN, TOTAL 6.1 g/dL (6.4-8.2); UREA NITROGEN 19.0 mg/dL (7-18)
[2025-03-12 06:54] LABS: LACTIC ACID, BLOOD 10.4 mmol/L (0.4-2.0)
[2025-03-12 07:04] LABS: ALT (SGPT) 30.0 U/L (14-59)
[2025-03-12] MEDS ORDERED: ALBUTEROL/IPRATROPIUM 3 ML NEB INH SCH (08:00)
[2025-03-12] MEDS ORDERED: DAPTOmycin 500 MG/10 ML VIAL IV SCH (09:00)
[2025-03-12] MEDS ORDERED: HYDROXYZINE HCL25 MG PO (09:16)
[2025-03-12] MEDS ORDERED: ADVAIR HFA 115-12 GM INH (09:17)
--- NOTE | 2025-03-12 10:21 | NUR ---
Patient denies shortness of breath, respirations even and non labored. SP02 97% on room air. No needs at this time.
[2025-03-12] MEDS ORDERED: TRIAMCINOLONE A15 G1 TOP (10:32)
[2025-03-12] MEDS ORDERED: PROMETHAZINE-D473 M1 PO (10:34)
--- NOTE | 2025-03-12 10:34 | NUR ---
MED REC COMPLETE
--- NOTE | 2025-03-12 10:39 | NUR ---
Patient has sustained tachycardia 113-126bpm per tele. Updated Dr. Jones, per his report he will review home medications.
[2025-03-12] MEDS ORDERED: DEXTROSE 50% 50 ML SYR IV PRN ×2 (11:30)
[2025-03-12] MEDS ORDERED: IBLOOD GLUCOSE TEST STRIP 1 EA TEST XX PRN (11:30)
[2025-03-12] MEDS ORDERED: DEXTROSE 5% 1,000 ML IV PRN (11:30)
[2025-03-12] MEDS ORDERED: GLUCAGON,HUMAN RECOMBINANT 1 MG/ML VIAL SUB-Q PRN (11:30)
--- NOTE | 2025-03-12 11:33 | NUR ---
ALERT AND ORIENTED IN BED. SHORT OF BREATH DURING CONVERSATION. LIVES IN APARTMENT, NO STAIRS. LILA CRUZ AT [phone], HER CAREGIVER, SHOULD BE CONTACTED IF NEEDED. PATIENT HAS CUSTODIAL MEDICAID AND LILA IS HER CAREGIVER WHO PROVIDES HER WITH ASSISTANCE FOR 17 HOURS/WEEK. SHE COMES TO HER APARMENT [phone], 5 DAYS/WEEK TO PROVIDE ASSISTANCE. PATIENT [facility] CANE[facility]ALK[facility] STATES LILA ASSISTS WITH TRANSPORTATION AND SHOPPING. PATIENT HAS DIFFICULTY PAYING FOR UTILITIES AND PLANS TO APPLY WITH [email or web address] FOR ENERGY ASSISTANCE AND DR. ROMERO IS WORKING ON PAPERWORK NEEDED FOR ENERGY ASSISTANCE. PLANS TO DC TO HOME WHEN MEDICALLY READY, NO KNOWN CM NEEDS AT THIS TIME.
[2025-03-12] MEDS ORDERED: ENOXAPARIN SODIUM 40 MG/0.4 ML SYR SUB-Q SCH (11:35)
[2025-03-12] MEDS ORDERED: PANTOPRAZOLE SODIUM 40 MG TABEC PO SCH (11:40)
[2025-03-12] MEDS ORDERED: GUAIFENESIN/CODEINE 5 ML UDC PO PRN (11:45)
[2025-03-12] MEDS ORDERED: PHARMACY RENAL DOSE ADJUSTMENT 1 DOSE MISC PO SCH (12:00)
[2025-03-12] MEDS ORDERED: INSULIN LISPRO 100 UNIT/ML ML SUB-Q SCH (12:00)
[2025-03-12] MEDS ORDERED: IBLOOD GLUCOSE TEST STRIP 1 EA TEST VI SCH (12:00)
[2025-03-12] MEDS ORDERED: FAMOTIDINE 20 MG TAB PO SCH ×2 (12:33→13:00)
[2025-03-12] MEDS ORDERED: PIPERACILLIN/TAZOBACTAM 4.5 GM in DEXTROSE 5% 100 ML IV SCH (14:00)
--- NOTE | 2025-03-12 14:16 | NUR ---
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
--- NOTE | 2025-03-12 14:26 | NUR ---
PATIENT ANTIBIOTIC RUNNING AND FLUIDS. PATIENT SITTING UP WATCHING TV. PATIENT ON RA STATING AT 98% PATIENT GIVEN FRESH WATER. GLASSES ON. BED IN LOW POSITION. CALL LIGHT WITHIN REACH. DENIES ANY OTHER CARES AT THIS TIME.
--- NOTE | 2025-03-12 17:52 | EKG ---
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
--- NOTE | 2025-03-12 18:33 | NUR ---
PATIENT BACK IN BED FROM DINNER. CALL LIGHT WITHIN REACH. PATIENT HAS WATER AT BEDSIDE. RA, CPOX ON. BED IN LOW POSTION. ANTIBIOTIC HAS A FEW MORE MINUTES.
--- NOTE | 2025-03-12 19:27 | NUR ---
RECEIVED REPORT FROM FAHEEM RIZVI. PT SOUND ASLEEP, CALL LIGHT WITHIN REACH.
--- NOTE | 2025-03-12 20:18 | NUR ---
DR JIM AT RN STATION, VERBAL ORDER READ BACK FOR REPEAT TROP FOR NOW. ORDER PLACED AND LAB AWARE AND TO COME DRAW.
--- NOTE | 2025-03-12 20:30 | NUR ---
PT RESTING IN BED, LAB IN ROOM FOR BLOOD DRAW. VSS. USES CALL LIGHT APPROPRIATELY. REPORTS GENERALIZED BODY ACHES, PRN TYLENOL ADMINISTERED. LSC DIM T/O. REMAINS ON RA, CPOX IN PLACE, O2 SATS 100%. REPORTS SOME SOB AND OCAMPO. OCCASSIONAL NPC. HRR TACHY, LOW 100'S. TELE IN PLACE. 2+ BLE EDEMA. BTA, LBM YESTERDAY. VOIDS WNL, WEARS DISPOSIBLE BRIEF. LAC IV WNL INFUSING LR @ 200MLS/HR. RAC SL LEAKS W/ FLUSH. PTS SKIN IS FRAGILE, SCATTERED BRUISES TO BUE. CALL LIGHT WITHIN REACH.
[2025-03-12] MEDS ORDERED: MELATONIN 3 MG TAB PO PRN (21:00)
--- NOTE | 2025-03-12 21:09 | NUR ---
DR. JIM NOTIFIED OF LACTIC DECREASE TO 2. RECEIVED ORDERS TO DECREASE IVF RATE TO 100MLS/HR.
--- NOTE | 2025-03-12 22:16 | NUR ---
IV ATB ADMINISTERED PER EMAR. PT SLEEPING SOUNDLY, ON RA. O2 SATS 100%. CALL LIGHT WITHIN REACH.
[2025-03-13] VITALS (13 sets, daily range): BP systolic 119–137; BP diastolic 56–83
--- NOTE | 2025-03-13 00:25 | NUR ---
PT AWAKE, WATCHING TV. JUST HAD NEB TX WITH RT. DENIES ANY OTHER NEEDS AT THIS TIME.
--- NOTE | 2025-03-13 01:20 | NUR ---
PREFORMER IMPREGNATED FABRICS OBTAINED VITALS AND I&O. PT STATES NO NEEDS AT THIS TIME. CALL LIGHT WITHIN REACH.
--- NOTE | 2025-03-13 02:51 | NUR ---
AWAKE, REPORTS HAS NOT SLEPT MUCH TONIGHT.
--- NOTE | 2025-03-13 03:43 | NUR ---
PT REQUESTED PRN TYLENOL FOR GENERALIZED ACHES-ADMINISTERED PER EMAR. ASSISTED PT TO USE BSC-SBA. VOIDS WNL. OCAMPO REPORTED AFTER USING BSC, PT O2 SATS MAINTAINED 88-92% ON RA. LS DIM T/O. CPOX IN PLACE.
--- NOTE | 2025-03-13 06:00 | NUR ---
PT REQUESTING NEB TX, RT CONTACTED. NO OTHER NEEDS OR CONCERNS AT THIS TIME.
[2025-03-13 06:01] LABS: ALT (SGPT) 29.0 U/L (14-59); AST (SGOT) 21.0 U/L (15-37); GLOMERULAR FILTRATION RATE,EST 78.0 mL/min (>60); PROTEIN, TOTAL 6.0 g/dL (6.4-8.2); UREA NITROGEN 15.0 mg/dL (7-18)
[2025-03-13 06:04] LABS: BASOPHILS 0.4 % (0.1-1.2); EOSINOPHILS 0.4 % (0.7-5.8); LYMPHOCYTES 17.3 % (19.3-51.7); MCH 29.9 PG (25.6-32.2); MCHC 33.9 g/dL (32.2-35.5); MCV 88.2 fL (79.4-94.8); MONOCYTES 9.9 % (4.7-12.5); NEUTROPHILS 71.0 % (34.0-71.1); RBC 3.81 M/uL (3.93-5.22)
--- NOTE | 2025-03-13 06:13 | NUR ---
DEVELOPER PROVER UPHOLSTERING OBTAINED VITALS AND I&O. PT STATES NO NEEDS AT THIS TIME. CALL LIGHT WITHIN REACH.
--- NOTE | 2025-03-13 07:25 | NUR ---
REPORT RECIEVED FROM FAHEEM PINEDA. PATIENT RESTING IN BED WITH HER EYES CLOSED. EVEN AND UNLABORED RESPIRATIONS NOTED. CALL LIGHT AND PERSONAL BELONGINGS ARE WITHIN REACH.
[2025-03-13] MEDS ORDERED: ARFORMOTEROL TARTRATE 15 MCG/2 ML VIAL INH SCH (08:00)
[2025-03-13] MEDS ORDERED: ALBUTEROL/IPRATROPIUM 3 ML NEB INH SCH (08:00)
[2025-03-13] MEDS ORDERED: BUDESONIDE 0.5 MG/2 ML VIAL INH SCH (08:00)
--- NOTE | 2025-03-13 08:40 | NUR ---
PATIENT MEDICATED PER EMAR. PATIENT ASSESSMENT COMPLETED. PATIENT RIGHT IV REMOVED DUE TO LEAKING. PATIENT IV FLUIDS TO LEFT ARM STOPPED AT THIS TIME. DUE TO INFILTRATION. CHARGE NURSE UPDATED.
[2025-03-13] MEDS ORDERED: METOPROLOL SUCCINATE 25 MG TABCR PO SCH (09:00)
[2025-03-13] MEDS ORDERED: FUROSEMIDE 20 MG TAB PO SCH (09:00)
--- NOTE | 2025-03-13 10:05 | NUR ---
DR JIM AT BEDSIDE AND NOTIFIED ABOUT PATIENT'S ARM SWELLING AND INFILTRATION. MD WITH VERBAL ORDER FOR US TO LEFT ARM FOR DVT RULE OUT.
--- NOTE | 2025-03-13 10:24 | NUR ---
PATIENT ASSISTED UP TO BEDSIDE COMMODE AND WITH 550ML OF URINE OUTPUT. PATIENT BACK TO BED. NILDA WITH US AT BEDSIDE.
--- NOTE | 2025-03-13 10:27 | NUR ---
INTO SEE PATIENT. PATIENT CAREGIVER WILL PICK HER UP ONCE MEDICALLY CLEARED FROM THE HOSPITAL. NO CM NEEDS AT THIS TIME.
--- NOTE | 2025-03-13 11:30 | NUR ---
FAHEEM BALLARD AT BEDSIDE INSERTING US GUIDED IV
--- NOTE | 2025-03-13 12:02 | NUR ---
PATIENT'S CAREGIVER, LILA CRUZ CALLED AND GIVEN AN UPDATED. PHONE CALL TRANSFERED IN TO PATIENT'S ROOM SO PATIENT CAN TALK WITH HER WELL.
--- NOTE | 2025-03-13 12:28 | NUR ---
PATIENT MEDICATED PER EMAR. PATIENT IS SITTING UP IN BED EATING LUNCH AND WATCHING TV. IV FLUSHED WITH 10ML OF NS, DRESSING IS INTACT. PATIENT IS WITHOUT FURTHER NEEDS AT THIS TIME. CALL LIGHT AND PERSONAL BELONGINGS ARE WITHIN REACH.
--- NOTE | 2025-03-13 12:48 | NUR ---
RECIEVED REPORT FROM FAHEEM FALCON. PT IS SITTING IN BED WITH LUNCH TRAY. CALL LIGHT IS WITHIN REACH.
--- NOTE | 2025-03-13 13:04 | NUR ---
PT IS SITTING UP IN BED WATCHING TV. CALL LIGHT AND PERSONAL BELONGINGS ARE WITHIN REACH.
--- NOTE | 2025-03-13 14:47 | NUR ---
UR CLINICAL REVIEW: 2 MN FELIBERTO, MEETS INPT FOR CELLULITIS WITH SEPSIS WHITE COUNT TREMAINS ELEVATED, HEARTRATE >100, IV ANTIBIOTICS WITH BLOOD CULTURES PENDING. MEDICARE INPT 03/13/2025 @ 0228 REGISTRATION NOTIFIED OF STATUS UPDATE NO AUTH REQUIRED PER MEDICARE RULES DC TO HOME WHEN MEDICALLY READY
--- NOTE | 2025-03-13 15:13 | NUR ---
PHYSICAL THERAPY IS WORKING WITH PT AT THIS TIME.
--- NOTE | 2025-03-13 15:49 | NUR ---
PT ASSISTED 1PA/FWW BACK TO BED FROM CHAIR. PT REQUESTING A JELLO, WHICH WAS PROVIDED TO HER. ALL PT CARE NEEDS MET, CALL LIGHT WITHIN REACH.
--- NOTE | 2025-03-13 16:06 | NUR ---
RT IN WITH PT AT THIS TIME.
--- NOTE | 2025-03-13 16:16 | NUR ---
PATIENT WASHED HER FACE AND BRUSHED HER TEETH. SHE WILL TAKE A SHOWER TOMORROW DO TO SHE IS ON ANTIBOTICS.
--- NOTE | 2025-03-13 18:12 | NUR ---
PT WATCHING TV IN ROOM. NC SECURELY ON FACE, CPOX AT BEDSIDE. RR EVEN AND UNLABORED. CALL LIGHT AND PERSONAL BELONGINGS ARE WITHIN REACH.
--- NOTE | 2025-03-13 19:29 | NUR ---
RECEIVED REPORT FROM FAHEEM HUMPHREY. PT SLEEPING SOUNDLY. CPOX IN PLACE, ON RA. CALL LIGHT WITHIN REACH.
--- NOTE | 2025-03-13 20:45 | NUR ---
PT RESTING IN BED, AWAKENS EASILY. REPORTS BEING TIRED FROM NOT SLEEPING WELL. VSS. USES CALL LIGHT APPROPRIATELY. ORIENTED X 4. REPORTS 8/10 GENERALIZED ACHES-PRN TYLENOL ADMINISTERED. LS W/ CRACKLES TO LEFT POST BASE. DENIES SOB. CPOX IN PLACE, 97% ON RA. OCAMPO NOTED. HRR, TELE IN PLACE, TACHY AT TIMES. 2+ EDEMA TO BLE. 1+ EDEMA TO LUE. LUE ELEVATED ON PILLOW, SOME TENDERNESS. BTA. LBM TODAY. VOIDS WNL, USES BSC W/ ASSIST. YAYA IV WNL, SL'D. MULITPLE BRUISES TO BUE. FRAGILE SKIN. CALL LIGHT WITHIN REACH.
[2025-03-13] MEDS ORDERED: INSULIN GLARGINE-YFGN 100 UNIT/ML ML SUB-Q SCH (21:00)
--- NOTE | 2025-03-13 21:02 | NUR ---
PT SITTING UP IN BED WATCHING TV. VITALS DONE. CALL LIGHT IN REACH, NO NEEDS AT THIS TIME.
--- NOTE | 2025-03-13 22:34 | NUR ---
PT ASLEEP WHEN RN ENTERS ROOM, AWAKENS EASILY. IV ATB INITIATED PER EMAR.
[2025-03-14] VITALS (7 sets, daily range): BP systolic 97–150; BP diastolic 61–76
--- NOTE | 2025-03-14 00:18 | NUR ---
PT SOUND ASLEEP. CPOX IN PLACE, O2 SATS 99% ON RA.
--- NOTE | 2025-03-14 01:27 | NUR ---
SLOT EDITOR OBTAINED VITALS AND I&O. PT STATES NO NEEDS AT THIS TIME. CALL LIGHT WITHIN REACH.
--- NOTE | 2025-03-14 01:54 | NUR ---
SLEEPING SOUNDLY, APPEARS COMFORTABLE.
--- NOTE | 2025-03-14 05:01 | NUR ---
SLEEPING SOUNDLY-APPEARS COMFORTABLE. CPOX IN PLACE, ON RA.
[2025-03-14 05:25] LABS: BASOPHILS 0.6 % (0.1-1.2); EOSINOPHILS 8.6 % (0.7-5.8); LYMPHOCYTES 27.9 % (19.3-51.7); MCH 28.9 PG (25.6-32.2); MCHC 32.5 g/dL (32.2-35.5); MCV 88.9 fL (79.4-94.8); MONOCYTES 11.8 % (4.7-12.5); NEUTROPHILS 50.2 % (34.0-71.1); RBC 3.88 M/uL (3.93-5.22)
[2025-03-14 05:51] LABS: ALT (SGPT) 27.0 U/L (14-59); AST (SGOT) 12.0 U/L (15-37); GLOMERULAR FILTRATION RATE,EST 71.0 mL/min (>60); PROTEIN, TOTAL 5.7 g/dL (6.4-8.2); UREA NITROGEN 17.0 mg/dL (7-18)
--- NOTE | 2025-03-14 05:55 | NUR ---
STATION HELPER OBTAINED VITALS. NO NEW I&O AT THIS TIME. PT STATES NO NEEDS AND CALL LIGHT WITHIN REACH.
--- NOTE | 2025-03-14 06:05 | NUR ---
PT SLEEPING SOUNDLY-AWAKENS BRIEFLY WITH RN IN ROOM. IV ATB INITIATED PER EMAR. REMAINS ON RA, CPOX IN PLACE.
--- NOTE | 2025-03-14 07:00 | NUR ---
RECIEVED REPORT FROM FAHEEM PINEDA. PT IS RESTING IN BED WITH EYES CLOSED. RR EVEN AND UNLABORED. CPOX IS AT BEDSIDE. CALL LIGHT WITHIN REACH.
--- NOTE | 2025-03-14 08:04 | NUR ---
INTO SEE PATIENT. IMM LETTER COMPLETED. CAREGIVER LILA ([phone]) TO RETAIL EVENT ASSISTANT AT TIME OF DISCHARGE. NO FUTHER CM NEEDS.
--- NOTE | 2025-03-14 09:50 | NUR ---
NOTIFIED DR. RANDALL THAT THIS RN HELD PT'S METORPROLOL AND DILTIZEM DUE TO BP OF 97/76, PER THE EMAR PARAMETERS. WITH NO ORDERS AT THIS TIME.
[2025-03-14] MEDS ORDERED: PAMELOR10 MG PO (09:51)
--- NOTE | 2025-03-14 10:14 | NUR ---
HELLEN, THE PHARMACIST IS IN THE ROOM AT THIS TIME AND SPEAKING WITH THE PATIENT.
--- NOTE | 2025-03-14 10:30 | NUR ---
I HELPED PATIENT TAKE HER SHOWER BEFORE SHE WAS DISCHARGED. ALSO WASHED HER HAIR. GOT HER CLEAN UNDERWEAR. THAN WE WALKED OUT TO SIT ON HER BED SO SHE COULD GET DRESSED. VISITOR BROUGHT UP HER CLOTHES.
== END 2025-03-14 11:52 | disposition home health service (06) | DRG 872 ==
LOC: ED 18:40 → MS 18:42
PROVIDERS: Emergency Medicine; Internal Medicine; ADMIT Student in an Organized Health Care Education/Training Program; ATTEND Student in an Organized Health Care Education/Training Program
DX: A41.9 Sepsis, unspecified organism (principal); J44.1 Chronic obstructive pulmonary disease with (acute) exacerbation; E87.20 Acidosis, unspecified; L03.317 Cellulitis of buttock; E11.9 Type 2 diabetes mellitus without complications; E78.00 Pure hypercholesterolemia, unspecified; G89.29 Other chronic pain; F41.1 Generalized anxiety disorder; K21.9 Gastro-esophageal reflux disease without esophagitis; M19.90 Unspecified osteoarthritis, unspecified site; R65.20 Severe sepsis without septic shock; K76.0 Fatty (change of) liver, not elsewhere classified; K80.20 Calculus of gallbladder without cholecystitis without obstruction; K44.9 Diaphragmatic hernia without obstruction or gangrene; Z99.81 Dependence on supplemental oxygen; K57.30 Diverticulosis of large intestine without perforation or abscess without bleeding; I10 Essential (primary) hypertension; F32.A Depression, unspecified; Z87.19 Personal history of other diseases of the digestive system; Z98.51 Tubal ligation status; Z87.39 Personal history of other diseases of the musculoskeletal system and connective tissue; Z88.8 Allergy status to other drugs, medicaments and biological substances; Z88.2 Allergy status to sulfonamides; Z88.1 Allergy status to other antibiotic agents; Z79.899 Other long term (current) drug therapy; Z79.51 Long term (current) use of inhaled steroids; Z88.0 Allergy status to penicillin; Z79.84 Long term (current) use of oral hypoglycemic drugs
CPT/HCPCS: 36415; 71045; 71260; 74177; 80053; 81003; 83036; 83605; 83735; 83880; 84484; 85025; 85610; 85730; 93005; 93010; 93306; 94640; 94762; 94799; 96361; 96366; 96367; 96372; 96375; 96376; 97161; 97165; 97530; A9270; G0378; J0696; J0878; J1650; J1815; J2543; J2919; J7121; J7605; Q0177; Q9967